=== PATIENT | female | born 1950 | race Hispanic/Latino ===

== ENCOUNTER 2016-07-18 11:17 | Inpatient (IN) | payer OTHER ==
[2016-07-18] MEDS ORDERED: ZOFRAN ONE (11:59)
--- NOTE | 2016-07-18 12:38 | Emergency Department Report ---
ED General Adult HPI - General Chief complaint: Dizziness Stated complaint: DIZZY Time Seen by Provider: 07/18/16 12:21 Source: patient, EMS (ems notes not available at time of chart dictation), RN notes reviewed Mode of arrival: Stretcher Limitations: No Limitations, Physical Limitation - History of Present Illness Initial comments: This is a 66-year-old female. She is previously unknown to me. Her primary care doctor is Dr. Elizondo past medical history includes hypertension, thyroid disease, peripheral edema. Patient presents to the ER with atraumatic left lower extremity pain and swelling. Patient also complains of chest pain last week which since resolved, and episode of syncope today. She also complains of dizziness. Dizziness is described as a sensation of room spinning. It is constant. Patient reports that she did not fall or hit her head, she reports that somebody caught her. There is no focal extremity weakness. There is no focal extremity numbness. Positive mild cough, mild shortness of breath, mild wheezing. Symptoms have been constant. Worse with physical exertion, they decrease with rest. -: Gradual Location: chest, left, lower extremity Severity scale (0 -10): 0 Quality: aching Consistency: intermittent Improves with: rest Worsens with: movement Associated Symptoms: chest pain, cough, loss of appetite, shortness of breath, syncope, weakness - Related Data Home Medications Medication Instructions Recorded Confirmed Last Taken Unobtainable 07/18/16 07/18/16 Unknown Allergies Allergy/AdvReac Type Severity Reaction Status Date / Time No Known Allergies Allergy Verified 07/18/16 13:05 ED Review of Systems ROS: Stated complaint: DIZZY Other details as noted in HPI Constitutional: malaise, weakness Eyes: denies: vision change ENT: denies: epistaxis Respiratory: shortness of breath, wheezing Cardiovascular: chest pain, syncope Gastrointestinal: denies: abdominal pain Genitourinary: as per HPI, dysuria Skin: denies: lesions Neurological: weakness Psychiatric: anxiety ED Past Medical Hx - Past Medical History Hx Hypertension: Yes Hx Congestive Heart Failure: Yes Hx COPD: Yes - Surgical History Past Surgical History?: No - Social History Smoking Status: Former Smoker Substance Use Type: None - Medications Home Medications: Home Medications Medication Instructions Recorded Confirmed Last Taken Type Unobtainable 07/18/16 07/18/16 Unknown History ED Physical Exam - General Limitations: Physical Limitation General appearance: alert, in distress - Eye Eye exam: Present: normal appearance, PERRL, EOMI. Absent: nystagmus - ENT ENT exam: Present: normal exam, normal orophraynx, normal external ear exam - Neck Neck exam: Present: normal inspection, full ROM. Absent: tenderness, meningismus - Respiratory Respiratory exam: Present: wheezes, rhonchi - Cardiovascular Cardiovascular Exam: Present: regular rate, normal rhythm, normal heart sounds. Absent: bradycardia, tachycardia, irregular rhythm, systolic murmur, diastolic murmur, rubs, gallop - GI/Abdominal GI/Abdominal exam: Present: soft, normal bowel sounds. Absent: distended, tenderness, guarding, rebound, rigid, pulsatile mass - Extremities Exam Extremities exam: Present: full ROM, tenderness, normal capillary refill, pedal edema, calf tenderness - Back Exam Back exam: Present: normal inspection, full ROM. Absent: tenderness, CVA tenderness (R), CVA tenderness (L), muscle spasm, paraspinal tenderness, vertebral tenderness - Neurological Exam Neurological exam: Present: alert, oriented X3, other (Extraocular movements intact. Tongue midline. No facial droop. Facial sensation intact to light touch in the V1, V2, V3 distribution bilaterally. 5 and 5 strength in 4 extremities.. Sensation is intact to light touch in 4 extremities.). Absent: motor sensory deficit - Psychiatric Psychiatric exam: Present: anxious ED Course Vital Signs 07/18/16 07/18/16 07/18/16 11:43 11:45 16:33 Temperature 98 F Pulse Rate 67 67 Respiratory 16 18 16 Rate Blood Pressure 156/82 139/89 [Left] O2 Sat by Pulse 95 95 97 Oximetry - Reevaluation(s) Reevaluation #1: 07/18/16 15:00 Differential diagnosis: DVT, pulmonary embolus, acute coronary syndrome, COPD exacerbation, pneumonia, peripheral vertigo, subacute stroke Assessment and plan: 66-year-old female with left lower extremity pain and swelling, chest pain, syncope, peripheral vertigo. Has a GCS of 15, NIH score is 0. No obvious cranial nerve deficits. Vertigo and symptoms have been present for greater than 4.5 hours, therefore not a TPA candidate. Left lower extremity DVT study was negative, CT of the chest was negative. Patient was wheezing, was given albuterol, Atrovent, steroids by EMS. Patient will be admitted to the hospital for syncope, chest pain, shortness of breath. case is discussed with the Hospital physician, Dr. Villarreal, who accepts the patient to his service. CT scan of the head is negative 07/18/16 17:18 ED Medical Decision Making - Lab Data Result diagrams: 07/18/16 12:50 07/18/16 12:50 Vital Signs 07/18/16 07/18/16 11:43 11:45 Temperature 98 F Pulse Rate 67 Respiratory 16 18 Rate Blood Pressure 156/82 [Left] O2 Sat by Pulse 95 95 Oximetry Lab Results 07/18/16 07/18/16 07/18/16 Range/Units 12:50 12:50 12:50 WBC 7.7 (4.5-11.0) K/mm3 RBC 5.32 H (3.65-5.03) M/mm3 Hgb 15.2 H (10.1-14.3) gm/dl Hct 45.7 H (30.3-42.9) % MCV 86 (79-97) fl MCH 29 (28-32) pg MCHC 33 (30-34) % RDW 13.9 (13.2-15.2) % Plt Count 169 (140-440) K/mm3 Add Manual Diff Complete Total Counted 100 Seg Neutrophils % Industrial Engineering Director Seg Neuts % (Manual) 87.0 H (40.0-70.0) % Band Neutrophils % 8.0 % Lymphocytes % (Manual) 3.0 L (13.4-35.0) % Reactive Lymphs % (Man) 0 % Monocytes % (Manual) 1.0 (0.0-7.3) % Eosinophils % (Manual) 1.0 (0.0-4.3) % Basophils % (Manual) 0 (0.0-1.8) % Metamyelocytes % 0 % Myelocytes % 0 % Promyelocytes % 0 % Blast Cells % 0 % Nucleated RBC % Not Reportable Seg Neutrophils # Man 6.7 (1.8-7.7) K/mm3 Band Neutrophils # 0.6 K/mm3 Lymphocytes # (Manual) 0.2 L (1.2-5.4) K/mm3 Abs React Lymphs (Man) 0.0 K/mm3 Monocytes # (Manual) 0.1 (0.0-0.8) K/mm3 Eosinophils # (Manual) 0.1 (0.0-0.4) K/mm3 Basophils # (Manual) 0.0 (0.0-0.1) K/mm3 Metamyelocytes # 0.0 K/mm3 Myelocytes # 0.0 K/mm3 Promyelocytes # 0.0 K/mm3 Blast Cells # 0.0 K/mm3 WBC Morphology Not Reportable Hypersegmented Neuts Not Reportable Hyposegmented Neuts Not Reportable Hypogranular Neuts Not Reportable Smudge Cells Not Reportable Toxic Granulation Not Reportable Toxic Vacuolation Not Reportable Dohle Bodies Not Reportable Pelger-Huet Anomaly Not Reportable Ulises Rods Not Reportable Platelet Estimate Appears decreased Clumped Platelets Not Reportable Plt Clumps, EDTA Not Reportable Large Platelets Not Reportable Giant Platelets Not Reportable Platelet Satelliting Not Reportable Plt Morphology Comment Not Reportable RBC Morphology Normal Dimorphic RBCs Not Reportable Polychromasia Not Reportable Hypochromasia Not Reportable Poikilocytosis Not Reportable Anisocytosis Not Reportable Microcytosis Not Reportable Macrocytosis Not Reportable Spherocytes Not Reportable Pappenheimer Bodies Not Reportable Sickle Cells Not Reportable Target Cells Not Reportable Tear Drop Cells Not Reportable Ovalocytes Not Reportable Helmet Cells Not Reportable [place] Bodies Not Reportable [place] Rings Not Reportable Thor Cells Not Reportable Bite Cells Not Reportable Crenated Cell Not Reportable Elliptocytes Not Reportable Acanthocytes (Spur) Not Reportable Rouleaux Not Reportable Hemoglobin C Crystals Not Reportable Schistocytes Not Reportable Malaria parasites Not Reportable Jeff Bodies Not Reportable Hem Pathologist Commnt No PT 12.5 (12.2-14.9) Sec. INR 0.94 (0.87-1.13) D-Dimer 282.05 H (0-234) ng/mlDDU Sodium 138 (137-145) mmol/L Potassium 4.0 (3.6-5.0) mmol/L Chloride 97.1 L (98-107) mmol/L Carbon Dioxide 27 (22-30) mmol/L Anion Gap 18 mmol/L BUN 12 (7-17) mg/dL Creatinine 0.9 (0.7-1.2) mg/dL Estimated GFR > 60 ml/min BUN/Creatinine Ratio 13.33 % Glucose 147 H (65-100) mg/dL Calcium 8.9 (8.4-10.2) mg/dL Magnesium 3.0 H (1.7-2.3) mg/dL Total Bilirubin 0.6 (0.1-1.2) mg/dL AST 16 (5-40) units/L ALT 18 (7-56) units/L Alkaline Phosphatase 151 H (35-129) units/L Troponin T < 0.010 (0.00-0.029) ng/mL NT-Pro-B Natriuret Pep (0-900) pg/mL Total Protein 7.5 (6.3-8.2) g/dL Albumin 4.4 (3.9-5) g/dL Albumin/Globulin Ratio 1.4 % TSH (0.270-4.200) mlU/mL Urine Color (Yellow) Urine Turbidity (Clear) Urine pH (5.0-7.0) Ur Specific [place] (1.003-1.030) Urine Protein (Negative) mg/dL Urine Glucose (UA) (Negative) mg/dL Urine Ketones (Negative) mg/dL Urine Blood (Negative) Urine Nitrite (Negative) Urine Bilirubin (Negative) Urine Urobilinogen (<2.0) mg/dL Ur Leukocyte Esterase (Negative) Urine WBC (Auto) (0.0-6.0) /HPF Urine RBC (Auto) (0.0-6.0) /HPF U Epithel Cells (Auto) (0-13.0) /HPF Urine Bacteria (Auto) (Negative) /HPF 07/18/16 07/18/16 07/18/16 Range/Units 12:50 12:50 13:11 WBC (4.5-11.0) K/mm3 RBC (3.65-5.03) M/mm3 Hgb (10.1-14.3) gm/dl Hct (30.3-42.9) % MCV (79-97) fl MCH (28-32) pg MCHC (30-34) % RDW (13.2-15.2) % Plt Count (140-440) K/mm3 Add Manual Diff Total Counted Seg Neutrophils % Seg Neuts % (Manual) (40.0-70.0) % Band Neutrophils % % Lymphocytes % (Manual) (13.4-35.0) % Reactive Lymphs % (Man) % Monocytes % (Manual) (0.0-7.3) % Eosinophils % (Manual) (0.0-4.3) % Basophils % (Manual) (0.0-1.8) % Metamyelocytes % % Myelocytes % % Promyelocytes % % Blast Cells % % Nucleated RBC % Seg Neutrophils # Man (1.8-7.7) K/mm3 Band Neutrophils # K/mm3 Lymphocytes # (Manual) (1.2-5.4) K/mm3 Abs React Lymphs (Man) K/mm3 Monocytes # (Manual) (0.0-0.8) K/mm3 Eosinophils # (Manual) (0.0-0.4) K/mm3 Basophils # (Manual) (0.0-0.1) K/mm3 Metamyelocytes # K/mm3 Myelocytes # K/mm3 Promyelocytes # K/mm3 Blast Cells # K/mm3 WBC Morphology Hypersegmented Neuts Hyposegmented Neuts Hypogranular Neuts Smudge Cells Toxic Granulation Toxic Vacuolation Dohle Bodies Pelger-Huet Anomaly Ulises Rods Platelet Estimate Clumped Platelets Plt Clumps, EDTA Large Platelets Giant Platelets Platelet Satelliting Plt Morphology Comment RBC Morphology Dimorphic RBCs Polychromasia Hypochromasia Poikilocytosis Anisocytosis Microcytosis Macrocytosis Spherocytes Pappenheimer Bodies Sickle Cells Target Cells Tear Drop Cells Ovalocytes Helmet Cells [place] Bodies [place] Rings [place] Cells Bite Cells Crenated Cell Elliptocytes Acanthocytes (Spur) Rouleaux Hemoglobin C Crystals Schistocytes Malaria parasites Jeff Bodies Hem Pathologist Commnt PT (12.2-14.9) Sec. INR (0.87-1.13) D-Dimer (0-234) ng/mlDDU Sodium (137-145) mmol/L Potassium (3.6-5.0) mmol/L Chloride (98-107) mmol/L Carbon Dioxide (22-30) mmol/L Anion Gap mmol/L BUN (7-17) mg/dL Creatinine (0.7-1.2) mg/dL Estimated GFR ml/min BUN/Creatinine Ratio % Glucose (65-100) mg/dL Calcium (8.4-10.2) mg/dL Magnesium (1.7-2.3) mg/dL Total Bilirubin (0.1-1.2) mg/dL AST (5-40) units/L ALT (7-56) units/L Alkaline Phosphatase (35-129) units/L Troponin T (0.00-0.029) ng/mL NT-Pro-B Natriuret Pep 422.9 (0-900) pg/mL Total Protein (6.3-8.2) g/dL Albumin (3.9-5) g/dL Albumin/Globulin Ratio % TSH 2.310 (0.270-4.200) mlU/mL Urine Color Straw (Yellow) Urine Turbidity Clear (Clear) Urine pH 7.0 (5.0-7.0) Ur Specific [place] 1.006 (1.003-1.030) Urine Protein <15 mg/dl (Negative) mg/dL Urine Glucose (UA) Neg (Negative) mg/dL Urine Ketones Neg (Negative) mg/dL Urine Blood Neg (Negative) Urine Nitrite Neg (Negative) Urine Bilirubin Neg (Negative) Urine Urobilinogen < 2.0 (<2.0) mg/dL Ur Leukocyte Esterase Neg (Negative) Urine WBC (Auto) < 1.0 (0.0-6.0) /HPF Urine RBC (Auto) 1.0 (0.0-6.0) /HPF U Epithel Cells (Auto) < 1.0 (0-13.0) /HPF Urine Bacteria (Auto) 1+ (Negative) /HPF - EKG Data When compared to previous EKG there are: previous EKG unavailable 07/18/16 15:01 normal sinus, 79 bpm, left axis deviation, premature ventricular contractions, low voltage, abnormal EKG, not morphologically consistent with STEMI. - Radiology Data Radiology results: report reviewed, image [facility] 1950 MedRec# [id number] 07/18/16 13:38 - Radiology Dept. Note by [facility] Num: [id number] : 1950 Patient Age: 66 VASCULAR LAB.PRELIMINARY REPORT.BLE VENOUS DUPLEX DONE.NO EVIDENCE OF DVT/SVT IN VESSELS VISUALIZED. Initialized on 07/18/16 13:38 - END OF NOTE CT angiogram of the chest negative for acute disease. Chest x-ray negative, chronic findings noted. Critical care attestation.: If time is entered above; I have spent that time in minutes in the direct care of this critically ill patient, excluding procedure time. ED Disposition Clinical Impression: Syncope, Chest pain, Dizziness Disposition: OP ADMITTED IP TO THIS HOSP Is pt being admited?: Yes Condition: Good
[2016-07-18 13:07] LABS: Hematocrit 45.7 % (30.3-42.9); Hemoglobin 15.2 gm/dl (10.1-14.3); Mean Corpuscular HGB Conc 33 % (30-34); Mean Corpuscular Hemoglobin 29 pg (28-32); Mean Corpuscular Volume 86 fl (79-97); Platelet Count 169 K/mm3 (140-440); Red Blood Count 5.32 M/mm3 (3.65-5.03); Red Cell Distribution Width 13.9 % (13.2-15.2); White Blood Count 7.7 K/mm3 (4.5-11.0)
[2016-07-18 13:17] LABS: INR 0.94 (0.87-1.13)
[2016-07-18 13:24] LABS: BUN/Creatinine Ratio 13.33; Blood Urea Nitrogen 12 mg/dL (7-17); Calcium 8.9 mg/dL (8.4-10.2); Carbon Dioxide 27 mmol/L (22-30); Glucose 147 mg/dL (65-100)
[2016-07-18 13:25] LABS: Alanine Aminotransferase 18 units/L (7-56); Albumin 4.4 g/dL (3.9-5); Albumin/Globulin Ratio 1.4 %; Alkaline Phosphatase 151 units/L (35-129); Anion Gap 18 mmol/L; Bilirubin,Total 0.6 mg/dL (0.1-1.2); Chloride 97.1 mmol/L (98-107); Sodium 138 mmol/L (137-145); Total Protein 7.5 g/dL (6.3-8.2)
[2016-07-18 13:25] LABS: Bacteria,Urine 1+ /HPF (Negative); Bilirubin,Urine NEG (Negative); Blood,Urine NEG (Negative); Ketones,Urine NEG (Negative); Leukocyte Esterase,Urine NEG (Negative); Nitrite,Urine NEG (Negative); Protein,Urine <15 mg/dL mg/dL (Negative); Urobilinogen,Urine < 2.0 mg/dL (<2.0); WBC,Urine < 1.0 /HPF (0.0-6.0)
[2016-07-18 13:38] LABS: Basophils % (Manual) 0 % (0.0-1.8); Blastocytes % (Manual) 0 %
[2016-07-18 13:39] LABS: Diff Status Complete; Platelet Estimate Appears Decreased; RBC Morphology Normal
[2016-07-18] MEDS ORDERED: NACL ONE (13:57)
--- NOTE | 2016-07-18 14:39 | Cat Scan Report ---
CT angiography of the chest with 3-D reconstructed images. Findings: There is no evidence of pulmonary emboli. The lungs are clear. Mild to moderate emphysematous changes are noted especially in the upper lobes. An isolated bleb is seen in the right upper lobe measuring 1.9 cm in diameter. There is no pleural fluid. The mediastinum and hilar structures are normal. Impression: No evidence of pulmonary emboli. COPD is present.
--- NOTE | 2016-07-18 14:42 | XRay Report ---
AP CHEST: HISTORY: Syncope AP view of the chest demonstrates a normal mediastinal and cardiac contour with clear lungs and normal bony and soft tissue structures. IMPRESSION: Unremarkable AP chest.
[2016-07-18] MEDS ORDERED: ANTIVERT PO ONE (15:02)
--- NOTE | 2016-07-18 15:09 | Cat Scan Report ---
CT HEAD WITHOUT CONTRAST: HISTORY: Syncope. Serial contiguous axial images were obtained through the cranium. Intravenous contrast material was not administered. The ventricles are normal in size and appearance. There is no mass effect or midline shift. No areas of abnormally increased or decreased attenuation are seen. Minimal nonspecific chronic white matter changes are noted in both frontal lobes. No mass lesion is seen. The mastoid air cells and visualized portions of the sinuses are normal. IMPRESSION: Cranial CT scan within normal limits.
--- NOTE | 2016-07-18 15:12 | Admit Criteria Form ---
Admission Criteria Documentation: CHEST PAIN Clinical Indications for Admission to Inpatient Care (Place 'X' for any and all applicable criteria): Admission is indicated for chest pain and ANY ONE of the following(1)(2)(3)(4)(5 ): [ ]I. Angina with acute coronary syndrome (Also use Myocardial Infarction or Angina guideline) [ ]II. Hemodynamic instability [ ]III. Angina needing acute intervention as indicated by ALL of the following( 11)(12): [ ]a) Unstable angina is present as indicated by angina that is ANY ONE of the following: [ ]i) New onset [ ]ii) Nocturnal [ ]iii) Prolonged at rest [ ]iv) Progressive [ ]b) Angina warrants acute intervention as indicated by ANY ONE of the following: [ ]i) Recurrent angina (e.g, not responding as previously to treatment) [ ]ii) Angina at rest or with low-level activities despite initial medical therapy [ ]iii) New or presumably new ST-segment depression on ECG [ ]iv) Signs or symptoms of heart failure (eg, dyspnea, pulmonary edema) [ ]v) New or worsening mitral regurgitation [ ]vi) Hemodynamic instability [ ]vii) Dangerous arrhythmia (eg, sustained ventricular tachycardia) [ ]viii) History of percutaneous coronary intervention within 6 months [ ]ix) History of coronary artery bypass graft surgery [ ]x) MADISYN risk score of 2 or greater[A] [ ]xi) History of Diabetes(14) [ ]xii) High-risk cardiac ischemia findings on noninvasive testing (e.g, echocardiogram, treadmill testing, nuclear scan) [ ]xiii) Chronic renal insufficiency (ie, estimated GFR less than 60 mL/min/1.732m) [ ]xiv) Left ventricular ejection fraction less than 40% [ ]IV. Evidence of ME (eg, cardiac biomarkers positive, ST-segment elevation on ECG) also use Myocardial Infarction Criteria Form. [ ]V. Pulmonary edema [ ]. Respiratory distress [ ]VII. Chest pain indicative of serious diagnosis other than coronary artery disease (eg, aortic dissection) [ ]VIII. Contraindications and/or Inappropriate clinical situations for Observational Care in patients with Chest Pain, when ANY ONE of the following is required: [ ]a) Patient with risk factor for pulmonary embolism, acute coronary syndrome and myocardial infarction (18) [ ]b) Patient with Pulmonary embolism require an average LOS of 4.3 days, therefore emergency department observation management is inappropriate 18,23 [ ]c) Painful condition/s in the elderly, have the highest rate of recidivism after emergency department observation management (10.8%) 20,21,22 [ ]d) Elevated cardiac biomarker requires intensive and exhaustive care (19) [X ]IX. General contraindications and/or Inappropriate clinical situations for Observational Care in patients with Chest Pain, when ANY ONE of the following is required: [X ]a) Prediction of prolongation of LOS based on ANY ONE of the following may be considered as a contraindication for observational care 2, 3, 4, 5, 6, 7, 8, 9, 10, 11 [ ]i) Age > 65 yrs. [X ]ii) Patient arriving by ambulance [ ]iii) Patient with high acuity [ ]iv) Patient requiring vital sign monitoring [ ]v) Patient on IV medication [ ]b) Systolic blood pressures 180mmHg 3,12 [ ]c) Patient with altered mental status including delirium and other alteration of consciousness, (3) [ ]d) Patient whose discharge disposition will be to a usp home or rehabilitation home should not be managed in Emergency Department Observation Unit. CMS rule requires 3 days hospital stay before such placement. 3,13 [ ]e) Patient with failure to thrive due to broad array of etiologies 3,16,17 [ ]f) Inability to ambulate 3,14 Extended stay beyond goal length of stay may be needed for (1)(28): [ ]a) Specific condition diagnosed after evaluation (eg, pulmonary embolism, aortic dissection) [ ]b) Unstable angina [ ]c) Continued suspicion of acute coronary syndrome with inability to complete needed cardiac evaluation (eg, patient clinically unable to undergo stress testing) [ ]d) Myocardial infarction (Contents from ANGINA and CHEST PAIN clinical indications for admission to inpatient care have been integrated in this form) The original [facility] content created by [employer] has been revised. The portions of the content which have been revised are identified through the use of italic text or in bold, and [facility] [employer] has neither reviewed nor approved the modified material. All other unmodified content is copyright [facility]. Please see references footnoted in the original [facility] [employer] edition 2016 Admission Criteria Met: Yes
[2016-07-18] MEDS ORDERED: BABY ASPIRIN PO ONE (15:23)
[2016-07-18] MEDS ORDERED: BABY ASPIRIN ONE ×2 (17:00→17:34)
[2016-07-18] MEDS ORDERED: SODIUM CHLORIDE FLUSH SYRINGE 10 ML IV PRN (17:51)
[2016-07-18] MEDS ORDERED: MORPHINE IV PRN (17:51)
--- NOTE | 2016-07-18 17:51 | History and Physical Report ---
History of Present Illness Date of examination: 07/18/16 Date of admission: 07/18/16 15:02 Chief complaint: Syncope History of present illness: This is a 66 y/o female with h/o COPD, HTN presented with an episode of syncope this morning. She also c/o diarrhea for last couple days. patient states that she has been feeling lightheaded for last couple weeks when she gets up from sitting and walks aaround, symptom was off and on. today ada were having furniture delivery to their house and she was standing near the door when she felt lightheaded, passed out, slided along the wall and fell on the floor. She denies any head injury. She states that lasy couple days she was having loose stool, without ant rectal bleeding. She c/o nausea but no vomiting. She also reported in the ER that she had left leg pain and swelling. CT head in the ER was unremarkable. She also also evaluated by doppler US of the LLE and CT with PE protocol was normal. She is getting admitted for further evaluation of syncope. Past medical History: h/o COPD, HTN Past surgical History: None Social History: Lives with family, denies any smoking, drinking and elicit drug abuse. Quit smoking on 2011. Family History: Significant for HD in parents, and breast cancer in mother. Review of System: Constitutional: no fever, no chills, no weight loss, + lightheadedness Ears, eyes, nose, mouth and throat: no nasal congestion, no nasal discharge, no sinus pressure, no vision change, no red eye. + left earache Neck: No neck pain or rigidity. Cardiovascular: No chest pain, no orthopnea, no palpitations, no leg swelling Respiratory: No shortness of breath, no cough, no congestion, no wheezing Gastrointestinal: no abdominal pain, + nausea, no vomiting, + diarrhea Genitourinary : no dysuria, no hematuria Musculoskeletal: no joint swelling or muscle ache Integumentary: no rash, no pruritis Neurological: no parathesias, no numbness, no tingling Endocrine: no cold or heat intolerance, no polyuria or polydipsia Hematologic/Lymphatic: no easy bruising, no easy bleeding, no gland swelling Allergic/Immunologic: no urticaria, no angioedema. Medications and Allergies Allergies Allergy/AdvReac Type Severity Reaction Status Date / Time No Known Allergies Allergy Verified 07/18/16 13:05 Home Medications Medication Instructions Recorded Confirmed Last Taken Type ALBUTEROL Inhaler [ProAir HFA 2 puff IH QID PRN 07/18/16 07/18/16 07/18/16 History Inhaler] Atenolol [Tenormin] 100 mg PO DAILY 07/18/16 07/18/16 07/18/16 History Furosemide [Lasix TAB] 40 mg PO QDAY 07/18/16 07/18/16 07/18/16 History Lisinopril [Zestril TAB] 40 mg PO QDAY 07/18/16 07/18/16 07/18/16 History Omeprazole 20 mg PO DAILY 07/18/16 07/18/16 07/18/16 History Potassium Chloride [K-Dur] 10 meq PO QDAY 07/18/16 07/18/16 07/18/16 History Umeclidinium Brm/Vilanterol Tr 1 puff PO DAILY 07/18/16 07/18/16 07/18/16 History [Anoro Ellipta 62.5-25 Mcg INH] amLODIPine [Norvasc] 10 mg PO DAILY 07/18/16 07/18/16 07/18/16 History Exam - Physical Exam Narrative exam: GENERAL: This is well-developed obese WF lying on bed appeared to be in no discomfort. HEENT: Normocephalic. Atraumatic. Extraocular motions are intact. No conjunctival congestion or icterus. Patient has moist mucous membranes. External auditory canal and nares patent bilaterally. NECK: Supple. Trachea midline. No JVD, thyromagaly or lymphadenopathy. CHEST/LUNGS: Clear to auscultated bilaterally. There is no respiratory distress noted, breathing nonlabored. No wheezes crackles or rhonchi. HEART/CARDIOVASCULAR: Regular in rate and rhythm. PMI at the apex. There is no gallop rub or murmur. ABDOMEN: Abdomen is soft, nontender. Patient has normal bowel sounds. There is no abdominal distention. No organomagaly or rigidity. SKIN: There is no rash, no erythrema. There is no diaphoresis. Warm and dry. NEUROLOGY: The patient is awake, alert, and oriented. The patient is cooperative. The patient has normal speech. No focal motor deficit. MUSCULOSKELETAL: No joint effusion or tenderness. Muscle strength equal bilaterally. No muscle wasting. EXTRIMITY: No edema, cyanosis or clubbing. PSYCH: No depression or anxiety noted. Cooperative. - Constitutional Vitals: Temp Pulse Resp BP Pulse Ox 98 F 67 16 139/89 97 07/18/16 11:43 07/18/16 16:33 07/18/16 16:33 07/18/16 16:33 07/18/16 16:33 Results - Labs CBC & Chem 7: 07/18/16 12:50 07/18/16 12:50 Labs: Laboratory Last Values WBC 7.7 K/mm3 (4.5-11.0) 07/18/16 12:50 RBC 5.32 M/mm3 (3.65-5.03) H 07/18/16 12:50 Hgb 15.2 gm/dl (10.1-14.3) H 07/18/16 12:50 Hct 45.7 % (30.3-42.9) H 07/18/16 12:50 MCV 86 fl (79-97) 07/18/16 12:50 MCH 29 pg (28-32) 07/18/16 12:50 MCHC 33 % (30-34) 07/18/16 12:50 RDW 13.9 % (13.2-15.2) 07/18/16 12:50 Plt Count 169 K/mm3 (140-440) 07/18/16 12:50 Add Manual Diff Complete 07/18/16 12:50 Total Counted 100 07/18/16 12:50 Seg Neutrophils % Log Carrier Operator 07/18/16 12:50 Seg Neuts % (Manual) 87.0 % (40.0-70.0) H 07/18/16 12:50 Band Neutrophils % 8.0 % 07/18/16 12:50 Lymphocytes % (Manual) 3.0 % (13.4-35.0) L 07/18/16 12:50 Reactive Lymphs % (Man) 0 % 07/18/16 12:50 Monocytes % (Manual) 1.0 % (0.0-7.3) 07/18/16 12:50 Eosinophils % (Manual) 1.0 % (0.0-4.3) 07/18/16 12:50 Basophils % (Manual) 0 % (0.0-1.8) 07/18/16 12:50 Metamyelocytes % 0 % 07/18/16 12:50 Myelocytes % 0 % 07/18/16 12:50 Promyelocytes % 0 % 07/18/16 12:50 Blast Cells % 0 % 07/18/16 12:50 Nucleated RBC % Not Reportable 07/18/16 12:50 Seg Neutrophils # Man 6.7 K/mm3 (1.8-7.7) 07/18/16 12:50 Band Neutrophils # 0.6 K/mm3 07/18/16 12:50 Lymphocytes # (Manual) 0.2 K/mm3 (1.2-5.4) L 07/18/16 12:50 Abs React Lymphs (Man) 0.0 K/mm3 07/18/16 12:50 Monocytes # (Manual) 0.1 K/mm3 (0.0-0.8) 07/18/16 12:50 Eosinophils # (Manual) 0.1 K/mm3 (0.0-0.4) 07/18/16 12:50 Basophils # (Manual) 0.0 K/mm3 (0.0-0.1) 07/18/16 12:50 Metamyelocytes # 0.0 K/mm3 07/18/16 12:50 Myelocytes # 0.0 K/mm3 07/18/16 12:50 Promyelocytes # 0.0 K/mm3 07/18/16 12:50 Blast Cells # 0.0 K/mm3 07/18/16 12:50 WBC Morphology Not Reportable 07/18/16 12:50 Hypersegmented Neuts Not Reportable 07/18/16 12:50 Hyposegmented Neuts Not Reportable 07/18/16 12:50 Hypogranular Neuts Not Reportable 07/18/16 12:50 Smudge Cells Not Reportable 07/18/16 12:50 Toxic Granulation Not Reportable 07/18/16 12:50 Toxic Vacuolation Not Reportable 07/18/16 12:50 Dohle Bodies Not Reportable 07/18/16 12:50 Pelger-Huet Anomaly Not Reportable 07/18/16 12:50 Ulises Rods Not Reportable 07/18/16 12:50 Platelet Estimate Appears decreased 07/18/16 12:50 Clumped Platelets Not Reportable 07/18/16 12:50 Plt Clumps, EDTA Not Reportable 07/18/16 12:50 Large Platelets Not Reportable 07/18/16 12:50 Giant Platelets Not Reportable 07/18/16 12:50 Platelet Satelliting Not Reportable 07/18/16 12:50 Plt Morphology Comment Not Reportable 07/18/16 12:50 RBC Morphology Normal 07/18/16 12:50 Dimorphic RBCs Not Reportable 07/18/16 12:50 Polychromasia Not Reportable 07/18/16 12:50 Hypochromasia Not Reportable 07/18/16 12:50 Poikilocytosis Not Reportable 07/18/16 12:50 Anisocytosis Not Reportable 07/18/16 12:50 Microcytosis Not Reportable 07/18/16 12:50 Macrocytosis Not Reportable 07/18/16 12:50 Spherocytes Not Reportable 07/18/16 12:50 Pappenheimer Bodies Not Reportable 07/18/16 12:50 Sickle Cells Not Reportable 07/18/16 12:50 Target Cells Not Reportable 07/18/16 12:50 Tear Drop Cells Not Reportable 07/18/16 12:50 Ovalocytes Not Reportable 07/18/16 12:50 Helmet Cells Not Reportable 07/18/16 12:50 Gavin-[place] Bodies Not Reportable 07/18/16 12:50 [place] Rings Not Reportable 07/18/16 12:50 [place] Cells Not Reportable 07/18/16 12:50 Bite Cells Not Reportable 07/18/16 12:50 Crenated Cell Not Reportable 07/18/16 12:50 Elliptocytes Not Reportable 07/18/16 12:50 Acanthocytes (Spur) Not Reportable 07/18/16 12:50 Rouleaux Not Reportable 07/18/16 12:50 Hemoglobin C Crystals Not Reportable 07/18/16 12:50 Schistocytes Not Reportable 07/18/16 12:50 Malaria parasites Not Reportable 07/18/16 12:50 Jeff Bodies Not Reportable 07/18/16 12:50 Hem Pathologist Commnt No 07/18/16 12:50 PT 12.5 Sec. (12.2-14.9) 07/18/16 12:50 INR 0.94 (0.87-1.13) 07/18/16 12:50 D-Dimer 282.05 ng/mlDDU (0-234) H 07/18/16 12:50 Sodium 138 mmol/L (137-145) 07/18/16 12:50 Potassium 4.0 mmol/L (3.6-5.0) 07/18/16 12:50 Chloride 97.1 mmol/L (98-107) L 07/18/16 12:50 Carbon Dioxide 27 mmol/L (22-30) 07/18/16 12:50 Anion Gap 18 mmol/L 07/18/16 12:50 BUN 12 mg/dL (7-17) 07/18/16 12:50 Creatinine 0.9 mg/dL (0.7-1.2) 07/18/16 12:50 Estimated GFR > 60 ml/min 07/18/16 12:50 BUN/Creatinine Ratio 13.33 % 07/18/16 12:50 Glucose 147 mg/dL (65-100) H 07/18/16 12:50 Calcium 8.9 mg/dL (8.4-10.2) 07/18/16 12:50 Magnesium 3.0 mg/dL (1.7-2.3) H 07/18/16 12:50 Total Bilirubin 0.6 mg/dL (0.1-1.2) 07/18/16 12:50 AST 16 units/L (5-40) 07/18/16 12:50 ALT 18 units/L (7-56) 07/18/16 12:50 Alkaline Phosphatase 151 units/L (35-129) H 07/18/16 12:50 Troponin T < 0.010 ng/mL (0.00-0.029) 07/18/16 12:50 NT-Pro-B Natriuret Pep 422.9 pg/mL (0-900) 07/18/16 12:50 Total Protein 7.5 g/dL (6.3-8.2) 07/18/16 12:50 Albumin 4.4 g/dL (3.9-5) 07/18/16 12:50 Albumin/Globulin Ratio 1.4 % 07/18/16 12:50 TSH 2.310 mlU/mL (0.270-4.200) 07/18/16 12:50 Urine Color Straw (Yellow) 07/18/16 13:11 Urine Turbidity Clear (Clear) 07/18/16 13:11 Urine pH 7.0 (5.0-7.0) 07/18/16 13:11 Ur Specific [place] 1.006 (1.003-1.030) 07/18/16 13:11 Urine Protein <15 mg/dl mg/dL (Negative) 07/18/16 13:11 Urine Glucose (UA) Neg mg/dL (Negative) 07/18/16 13:11 Urine Ketones Neg mg/dL (Negative) 07/18/16 13:11 Urine Blood Neg (Negative) 07/18/16 13:11 Urine Nitrite Neg (Negative) 07/18/16 13:11 Urine Bilirubin Neg (Negative) 07/18/16 13:11 Urine Urobilinogen < 2.0 mg/dL (<2.0) 07/18/16 13:11 Ur Leukocyte Esterase Neg (Negative) 07/18/16 13:11 Urine WBC (Auto) < 1.0 /HPF (0.0-6.0) 07/18/16 13:11 Urine RBC (Auto) 1.0 /HPF (0.0-6.0) 07/18/16 13:11 U Epithel Cells (Auto) < 1.0 /HPF (0-13.0) 07/18/16 13:11 Urine Bacteria (Auto) 1+ /HPF (Negative) 07/18/16 13:11 - Imaging and Cardiology CT scan - chest: report reviewed (negative for PE) CT Scan - head: report reviewed (no acute intracranial process) Venous US: report reviewed (lower extremity venous Doppler was negative for DVT) Assessment and Plan Assessment and plan: Syncope, likely vasovagal H/o COPD not in exacerbation HTN, benign essential Obesity due to access calorie Acute diarrhea, likely gastroenteritis Plan: Patient will be admitted to medicine Monitor serial cardiac enzyme and EKG IV fluid, stool study Obtain 2-D echocardiogram and carotid Doppler Cardiology consult Supportive care, hold BP meds, orthostatic vitals Provide GI and dvt prophylaxis Advance Directives: Yes VTE prophylaxis?: Chemical Plan of care discussed with patient/family: Yes
[2016-07-18] MEDS: LOVENOX SUB-Q SCH (21:11)
[2016-07-18] MEDS: PEPCID PO SCH (21:11)
[2016-07-18 21:24] LABS: Creatine Kinase 73 units/L (30-135); Creatine Kinase MB 1.5 ng/mL (0.0-4.0)
[2016-07-18] MEDS: NACL 0.9% 1000 ML 1,000 ML IV SCH (21:53)
[2016-07-19 00:17] LABS: Creatine Kinase MB 1.4 ng/mL (0.0-4.0)
[2016-07-19 00:20] LABS: Creatine Kinase 82 units/L (30-135)
[2016-07-19] MEDS: NACL 0.9% 1000 ML 1,000 ML IV SCH ×2 (10:47→21:35)
[2016-07-19] MEDS: ECOTRIN PO SCH (10:47)
[2016-07-19] MEDS: PEPCID PO SCH ×2 (10:47→21:34)
--- NOTE | 2016-07-19 15:49 | Consultation ---
History of Present Illness Consult date: 07/19/16 Requesting physician: SULLY QUINTANA Consult reason: syncope History of present illness: The patient is a 66 year old female with a history of hypertension, hyperlipidemia, COPD who presented following a syncopal episode at home. She states that recently her blood pressure has been running low and her PCP made some adjustments to her blood pressure medications last week. Since that time, she has experienced intermittent dizziness and lightheadness, especially when moving from a sitting to standing position. Yesterday, she was standing in the kitchen and as she was walking to answer the front door, she felt very lightheaded, leaned back against the wall and slid down to the floor. Her reports that she was out for several minutes. She denies any chest pain , palpitations, shortness of breath, nausea or vomiting. She does report several days of diarrhea earlier this week. Troponin negative x 3. Head CT unremarkable. Chest CTA negative for PE. Carotids negative. No recent ischemic evaluation. Past History Past Medical History: COPD, hypertension, hyperlipidemia Past Surgical History: No surgical history Social history: . denies: smoking, alcohol abuse, prescription drug abuse, IV drug use Family history: CAD Medications and Allergies Allergies Allergy/AdvReac Type Severity Reaction Status Date / Time No Known Allergies Allergy Verified 07/18/16 13:05 Home Medications Medication Instructions Recorded Confirmed Last Taken Type ALBUTEROL Inhaler [ProAir HFA 2 puff IH QID PRN 07/18/16 07/18/16 07/18/16 History Inhaler] Atenolol [Tenormin] 100 mg PO DAILY 07/18/16 07/18/16 07/18/16 History Furosemide [Lasix TAB] 40 mg PO QDAY 07/18/16 07/18/16 07/18/16 History Lisinopril [Zestril TAB] 40 mg PO QDAY 07/18/16 07/18/16 07/18/16 History Omeprazole 20 mg PO DAILY 07/18/16 07/18/16 07/18/16 History Potassium Chloride [K-Dur] 10 meq PO QDAY 07/18/16 07/18/16 07/18/16 History Umeclidinium Brm/Vilanterol Tr 1 puff PO DAILY 07/18/16 07/18/16 07/18/16 History [Anoro Ellipta 62.5-25 Mcg INH] amLODIPine [Norvasc] 10 mg PO DAILY 07/18/16 07/18/16 07/18/16 History Active Meds: Active Medications Aspirin (Ecotrin) 325 mg PO QDAY [facility] Last Admin: 07/19/16 10:47 Dose: 325 mg Enoxaparin Sodium (Lovenox) 40 mg SUB-Q QDAY@2200 [facility] Last Admin: 07/18/16 21:11 Dose: 40 mg Famotidine (Pepcid) 20 mg PO BID [facility] Last Admin: 07/19/16 10:47 Dose: 20 mg Sodium Chloride (Nacl 0.9% 1000 Ml) 1,000 mls @ 100 mls/hr IV DIRECT [facility] Last Admin: 07/19/16 10:47 Dose: 100 mls/hr Morphine Sulfate (Morphine) 2 mg IV Q5MIN PRN PRN Reason: Chest Pain Sodium Chloride (Sodium Chloride Flush Syringe 10 Ml) 10 ml IV PRN PRN PRN Reason: LINE FLUSH Review of Systems Constitutional: fatigue, no fever, no chills Ears, nose, mouth and throat: no nasal congestion, no nasal discharge, no sinus pressure Cardiovascular: syncope, leg edema, no chest pain, no palpitations, no shortness of breath Respiratory: no cough, no shortness of breath, no congestion, no wheezing Gastrointestinal: diarrhea, no abdominal pain, no nausea, no vomiting Genitourinary Female: no dysuria, no urgency Musculoskeletal: no neck stiffness, no neck pain, no myalgias Integumentary: no rash, no pruritis Neurological: syncope, no parathesias, no numbness, no tingling, no headaches Endocrine: no cold intolerance, no heat intolerance Hematologic/Lymphatic: no easy bruising, no easy bleeding Allergic/Immunologic: no urticaria, no wheezing Physical Examination Vital Signs Temp Pulse Resp BP Pulse Ox 98 F 67 16 156/82 95 07/18/16 11:43 07/18/16 11:43 07/18/16 11:43 07/18/16 11:43 07/18/16 11:43 General appearance: no acute distress, obese HEENT: Positive: PERRL, Normocephaly, Mucus Membranes Moist Neck: Positive: neck supple, trachea midline Cardiac: Positive: Reg Rate and Rhythm, S1/S2 Lungs: Positive: clear to auscultation Neuro: Positive: Grossly Intact Abdomen: Positive: Soft, Active Bowel Sounds. Negative: Tender Skin: Positive: Clear. Negative: Rash Extremities: Present: +1 Edema (left lower leg) Results 07/18/16 12:50 07/18/16 12:50 Cardiac Enzymes 07/18/16 Range/Units 20:38 CK-MB (CK-2) 1.5 (0.0-4.0) ng/mL Lipids 07/18/16 Range/Units 19:56 Triglycerides 143 (2-149) mg/dL Cholesterol 224 H (50-199) mg/dL HDL Cholesterol 48 (40-59) mg/dL Cholesterol/HDL Ratio 4.66 % - Imaging and Cardiology Echo: pending EKG: image reviewed EKG interpretations - Telemetry EKG Rhythm: Sinus Rhythm - EKG Sinus rhythms and dysrhythmias: sinus rhythm Assessment and Plan Syncope head CT negative chest CTA negative for PE carotids negative obtain orthostatics await echo findings Lexiscan thallium stress test in am will continue to observe on the monitor Hypertension Hyperlipidemia COPD Obtain orthostatics. Await echo findings. Lexiscan thallium stress test in am. Will continue to observe on the monitor. The patient has been seen in conjunction with Dr. Mcknight who agrees with the assessment and plan of care. Thank you Dr. Quintana for allowing us to participate in the care of this patient.
[2016-07-19] MEDS: LOVENOX SUB-Q SCH (21:34)
--- NOTE | 2016-07-19 22:21 | Progress Note ---
Assessment and Plan Assessment and plan: Syncope, likely vasovagal H/o COPD not in exacerbation HTN, benign essential Obesity due to access calorie Acute diarrhea, likely gastroenteritis Plan: serial cardiac enzyme and EKG normal IV fluid, stool study pending follow 2-D echocardiogram report carotid Doppler showed <50% stenosis b/l Cardiology recommended stress test in the am Supportive care, hold BP meds, orthostatic vitals Provide GI and dvt prophylaxis History Interval history: Pt seen and examined denies any lightheadedness today, no chest pain, diarrhea resolved Hospitalist Physical - Physical exam Narrative exam: GENERAL: This is well-developed obese WF lying on bed appeared to be in no discomfort. HEENT: Normocephalic. No conjunctival congestion or icterus. Patient has moist mucous membranes. External auditory canal and nares patent bilaterally. NECK: Supple. Trachea midline. CHEST/LUNGS: Clear to auscultated bilaterally. breathing nonlabored. HEART/CARDIOVASCULAR: Regular in rate and rhythm. PMI at the apex. . ABDOMEN: Abdomen is soft, nontender. Patient has normal bowel sounds. SKIN: There is no rash, Warm and dry. NEUROLOGY: The patient is awake, alert, and oriented. No focal motor deficit. MUSCULOSKELETAL: No joint effusion or tenderness. EXTRIMITY: No edema, cyanosis or clubbing. PSYCH: No depression or anxiety noted. Cooperative. - Constitutional Vitals: Temp Pulse Resp BP Pulse Ox 98.2 F 69 18 115/59 95 07/19/16 20:41 07/19/16 20:41 07/19/16 20:59 07/19/16 20:41 07/19/16 20:41 General appearance: Present: no acute distress, obese Results - Labs CBC & Chem 7: 07/18/16 12:50 07/18/16 12:50 Labs: Laboratory Last Values WBC 7.7 K/mm3 (4.5-11.0) 07/18/16 12:50 RBC 5.32 M/mm3 (3.65-5.03) H 07/18/16 12:50 Hgb 15.2 gm/dl (10.1-14.3) H 07/18/16 12:50 Hct 45.7 % (30.3-42.9) H 07/18/16 12:50 MCV 86 fl (79-97) 07/18/16 12:50 MCH 29 pg (28-32) 07/18/16 12:50 MCHC 33 % (30-34) 07/18/16 12:50 RDW 13.9 % (13.2-15.2) 07/18/16 12:50 Plt Count 169 K/mm3 (140-440) 07/18/16 12:50 Add Manual Diff Complete 07/18/16 12:50 Total Counted 100 07/18/16 12:50 Seg Neutrophils % Weapons Officer 07/18/16 12:50 Seg Neuts % (Manual) 87.0 % (40.0-70.0) H 07/18/16 12:50 Band Neutrophils % 8.0 % 07/18/16 12:50 Lymphocytes % (Manual) 3.0 % (13.4-35.0) L 07/18/16 12:50 Reactive Lymphs % (Man) 0 % 07/18/16 12:50 Monocytes % (Manual) 1.0 % (0.0-7.3) 07/18/16 12:50 Eosinophils % (Manual) 1.0 % (0.0-4.3) 07/18/16 12:50 Basophils % (Manual) 0 % (0.0-1.8) 07/18/16 12:50 Metamyelocytes % 0 % 07/18/16 12:50 Myelocytes % 0 % 07/18/16 12:50 Promyelocytes % 0 % 07/18/16 12:50 Blast Cells % 0 % 07/18/16 12:50 Nucleated RBC % Not Reportable 07/18/16 12:50 Seg Neutrophils # Man 6.7 K/mm3 (1.8-7.7) 07/18/16 12:50 Band Neutrophils # 0.6 K/mm3 07/18/16 12:50 Lymphocytes # (Manual) 0.2 K/mm3 (1.2-5.4) L 07/18/16 12:50 Abs React Lymphs (Man) 0.0 K/mm3 07/18/16 12:50 Monocytes # (Manual) 0.1 K/mm3 (0.0-0.8) 07/18/16 12:50 Eosinophils # (Manual) 0.1 K/mm3 (0.0-0.4) 07/18/16 12:50 Basophils # (Manual) 0.0 K/mm3 (0.0-0.1) 07/18/16 12:50 Metamyelocytes # 0.0 K/mm3 07/18/16 12:50 Myelocytes # 0.0 K/mm3 07/18/16 12:50 Promyelocytes # 0.0 K/mm3 07/18/16 12:50 Blast Cells # 0.0 K/mm3 07/18/16 12:50 WBC Morphology Not Reportable 07/18/16 12:50 Hypersegmented Neuts Not Reportable 07/18/16 12:50 Hyposegmented Neuts Not Reportable 07/18/16 12:50 Hypogranular Neuts Not Reportable 07/18/16 12:50 Smudge Cells Not Reportable 07/18/16 12:50 Toxic Granulation Not Reportable 07/18/16 12:50 Toxic Vacuolation Not Reportable 07/18/16 12:50 Dohle Bodies Not Reportable 07/18/16 12:50 Pelger-Huet Anomaly Not Reportable 07/18/16 12:50 Ulises Rods Not Reportable 07/18/16 12:50 Platelet Estimate Appears decreased 07/18/16 12:50 Clumped Platelets Not Reportable 07/18/16 12:50 Plt Clumps, EDTA Not Reportable 07/18/16 12:50 Large Platelets Not Reportable 07/18/16 12:50 Giant Platelets Not Reportable 07/18/16 12:50 Platelet Satelliting Not Reportable 07/18/16 12:50 Plt Morphology Comment Not Reportable 07/18/16 12:50 RBC Morphology Normal 07/18/16 12:50 Dimorphic RBCs Not Reportable 07/18/16 12:50 Polychromasia Not Reportable 07/18/16 12:50 Hypochromasia Not Reportable 07/18/16 12:50 Poikilocytosis Not Reportable 07/18/16 12:50 Anisocytosis Not Reportable 07/18/16 12:50 Microcytosis Not Reportable 07/18/16 12:50 Macrocytosis Not Reportable 07/18/16 12:50 Spherocytes Not Reportable 07/18/16 12:50 Pappenheimer Bodies Not Reportable 07/18/16 12:50 Sickle Cells Not Reportable 07/18/16 12:50 Target Cells Not Reportable 07/18/16 12:50 Tear Drop Cells Not Reportable 07/18/16 12:50 Ovalocytes Not Reportable 07/18/16 12:50 Helmet Cells Not Reportable 07/18/16 12:50 Gavin-[place] Bodies Not Reportable 07/18/16 12:50 [place] Rings Not Reportable 07/18/16 12:50 [place] Cells Not Reportable 07/18/16 12:50 Bite Cells Not Reportable 07/18/16 12:50 Crenated Cell Not Reportable 07/18/16 12:50 Elliptocytes Not Reportable 07/18/16 12:50 Acanthocytes (Spur) Not Reportable 07/18/16 12:50 Rouleaux Not Reportable 07/18/16 12:50 Hemoglobin C Crystals Not Reportable 07/18/16 12:50 Schistocytes Not Reportable 07/18/16 12:50 Malaria parasites Not Reportable 07/18/16 12:50 Jeff Bodies Not Reportable 07/18/16 12:50 Hem Pathologist Commnt No 07/18/16 12:50 PT 12.5 Sec. (12.2-14.9) 07/18/16 12:50 INR 0.94 (0.87-1.13) 07/18/16 12:50 D-Dimer 282.05 ng/mlDDU (0-234) H 07/18/16 12:50 Sodium 138 mmol/L (137-145) 07/18/16 12:50 Potassium 4.0 mmol/L (3.6-5.0) 07/18/16 12:50 Chloride 97.1 mmol/L (98-107) L 07/18/16 12:50 Carbon Dioxide 27 mmol/L (22-30) 07/18/16 12:50 Anion Gap 18 mmol/L 07/18/16 12:50 BUN 12 mg/dL (7-17) 07/18/16 12:50 Creatinine 0.9 mg/dL (0.7-1.2) 07/18/16 12:50 Estimated GFR > 60 ml/min 07/18/16 12:50 BUN/Creatinine Ratio 13.33 % 07/18/16 12:50 Glucose 147 mg/dL (65-100) H 07/18/16 12:50 Calcium 8.9 mg/dL (8.4-10.2) 07/18/16 12:50 Magnesium 3.0 mg/dL (1.7-2.3) H 07/18/16 12:50 Total Bilirubin 0.6 mg/dL (0.1-1.2) 07/18/16 12:50 AST 16 units/L (5-40) 07/18/16 12:50 ALT 18 units/L (7-56) 07/18/16 12:50 Alkaline Phosphatase 151 units/L (35-129) H 07/18/16 12:50 Total Creatine Kinase 82 units/L (30-135) 07/18/16 23:33 CK-MB (CK-2) 1.5 ng/mL (0.0-4.0) 07/18/16 20:38 CK-MB (CK-2) Rel Index 1.7 (0-4) 07/18/16 23:33 Troponin T < 0.010 ng/mL (0.00-0.029) 07/18/16 23:33 NT-Pro-B Natriuret Pep 422.9 pg/mL (0-900) 07/18/16 12:50 Total Protein 7.5 g/dL (6.3-8.2) 07/18/16 12:50 Albumin 4.4 g/dL (3.9-5) 07/18/16 12:50 Albumin/Globulin Ratio 1.4 % 07/18/16 12:50 Triglycerides 143 mg/dL (2-149) 07/18/16 19:56 Cholesterol 224 mg/dL (50-199) H 07/18/16 19:56 LDL Cholesterol Direct 148 mg/dL (50-130) H 07/18/16 19:56 HDL Cholesterol 48 mg/dL (40-59) 07/18/16 19:56 Cholesterol/HDL Ratio 4.66 % 07/18/16 19:56 TSH 2.310 mlU/mL (0.270-4.200) 07/18/16 12:50 Urine Color Straw (Yellow) 07/18/16 13:11 Urine Turbidity Clear (Clear) 07/18/16 13:11 Urine pH 7.0 (5.0-7.0) 07/18/16 13:11 Ur Specific [place] 1.006 (1.003-1.030) 07/18/16 13:11 Urine Protein <15 mg/dl mg/dL (Negative) 07/18/16 13:11 Urine Glucose (UA) Neg mg/dL (Negative) 07/18/16 13:11 Urine Ketones Neg mg/dL (Negative) 07/18/16 13:11 Urine Blood Neg (Negative) 07/18/16 13:11 Urine Nitrite Neg (Negative) 07/18/16 13:11 Urine Bilirubin Neg (Negative) 07/18/16 13:11 Urine Urobilinogen < 2.0 mg/dL (<2.0) 07/18/16 13:11 Ur Leukocyte Esterase Neg (Negative) 07/18/16 13:11 Urine WBC (Auto) < 1.0 /HPF (0.0-6.0) 07/18/16 13:11 Urine RBC (Auto) 1.0 /HPF (0.0-6.0) 07/18/16 13:11 U Epithel Cells (Auto) < 1.0 /HPF (0-13.0) 07/18/16 13:11 Urine Bacteria (Auto) 1+ /HPF (Negative) 07/18/16 13:11
[2016-07-20] MEDS ORDERED: LEXISCAN IV ONE ×2 (08:03→08:15)
--- NOTE | 2016-07-20 11:39 | Progress Note ---
Assessment and Plan 66yo WF: Syncope with prodrome: head CT negative chest CTA negative for PE carotids negative tte - nl lv fxn, no sig valvulopathy or pericardial effusion Lexiscan thallium stress test this reveals no ischemia/infarct and nl lv fxn tele unremarkable Hypertension Hyperlipidemia COPD stable cv status f/u with us in office in 2 weeks Subjective Date of service: 07/20/16 Interval history: seen in stress lab feels well Objective Vital Signs Temp Pulse Pulse Resp BP Pulse Ox 07/20/16 08:00 97.6 F 67 20 144/75 95 07/20/16 04:58 97.4 F L 65 20 108/60 96 07/20/16 00:16 98.0 F 72 20 113/60 92 07/20/16 00:00 80 07/19/16 20:59 18 07/19/16 20:41 98.2 F 69 18 115/59 95 07/19/16 16:00 97.9 F 81 20 119/68 92 07/19/16 12:15 86 07/19/16 12:00 98.0 F 78 18 118/59 93 - Physical Examination HEENT: Positive: PERRL, Normocephaly, Mucus Membranes Moist Neck: Positive: neck supple, trachea midline Neuro: Positive: Grossly Intact Abdomen: Positive: Soft, Active Bowel Sounds. Negative: Tender Skin: Positive: Clear. Negative: Rash Extremities: Present: +1 Edema (left lower leg) - Imaging and Cardiology EKG: image reviewed Echo: pending - EKG Sinus rhythms and dysrhythmias: sinus rhythm
[2016-07-20 12:50] VITALS: BP 164/81
--- NOTE | 2016-07-20 12:51 | Treadmill Report ---
NUCLEAR PERFUSION SCAN REFERRING PHYSICIAN: Hospitalist service . PROTOCOL: The patient was brought to the stress lab in a post-absorptive state, given 10 mCi of technetium 99m at rest. The patient underwent rest imaging. The patient underwent Lexiscan stress test. At peak stress, the patient was given 26 mCi of technetium 99m. Shortly thereafter, the patient underwent stress imaging. Raw imaging reveals mild GI artifact. No significant motion artifact. SPECT imaging examined carefully in the horizontal long axis, vertical long axis, and short axis views. There is normal homogenous uptake of radioisotope in all reported segments. No evidence of significant fixed or reversible perfusion defect suggestive of prior infarction or ischemia. Gated wall motion reveals normal systolic thickening. Calculated ejection fraction of 61%. No TID. CONCLUSIONS: 1. Normal myocardial perfusion scan without evidence of active ischemia or prior infarction. 2. Normal left ventricular systolic performance without evidence of transient ischemic dilatation or stress-induced segmental wall motion abnormalities. 3. Lexiscan stress test is reported separately. JOB# [id number] SBM/NTS
[2016-07-20] MEDS: ECOTRIN PO SCH (12:54)
[2016-07-20] MEDS: PEPCID PO SCH (12:54)
--- NOTE | 2016-07-20 13:43 | Discharge Summary ---
Providers - Providers Date of Admission: 07/18/16 15:02 Date of discharge: 07/20/16 Attending physician: SULLY QUINTANA 07/18/16 Consult to Cardiac Rehabilitation [CONS] Routine Reason For Exam: Phase I 07/19/16 12:45 Consult to Physician [CONS] Routine Consulting Provider: JENNIFER IBARRA Reason For Exam: syncope Place consult to:: cardiology human resources compensation analyst Notified:: SONALI Was contact made?: Yes Primary care physician: MORTGAGE BRANCH MANAGER Hospitalization Condition: Good Hospital course: Discharge Diagnosis: Syncope with prodrome, likley vasovagal: head CT negative chest CTA negative for PE carotids negative tte - nl lv fxn, no sig valvulopathy or pericardial effusion Lexiscan thallium stress test this reveals no ischemia/infarct and nl lv fxn tele unremarkable H/o COPD not in exacerbation HTN, benign essential Obesity due to access calorie Acute diarrhea, likely gastroenteritis, resolved Disposition: DISCHARGED TO HOME OR SELFCARE Time spent for discharge: 32 minutes Core Measure Documentation - Palliative Care Palliative Care/ Comfort Measures: Not Applicable - Core Measures Any of the following diagnoses?: none Exam - Physical Exam Narrative exam: GENERAL: This is well-developed obese WF lying on bed appeared to be in no discomfort. HEENT: Normocephalic. No conjunctival congestion or icterus. Patient has moist mucous membranes. External auditory canal and nares patent bilaterally. NECK: Supple. Trachea midline. CHEST/LUNGS: Clear to auscultated bilaterally. breathing nonlabored. HEART/CARDIOVASCULAR: Regular in rate and rhythm. PMI at the apex. . ABDOMEN: Abdomen is soft, nontender. Patient has normal bowel sounds. SKIN: There is no rash, Warm and dry. NEUROLOGY: The patient is awake, alert, and oriented. No focal motor deficit. MUSCULOSKELETAL: No joint effusion or tenderness. EXTRIMITY: No edema, cyanosis or clubbing. PSYCH: No depression or anxiety noted. Cooperative. - Constitutional Vitals: Temp Pulse Resp BP Pulse Ox 97.6 F 95 H 20 164/81 95 07/20/16 08:00 07/20/16 12:00 07/20/16 08:00 07/20/16 11:07 07/20/16 08:00 Plan Activity: advance as tolerated, fall precautions Weight Bearing Status: Non-Weight Bearing Diet: low cholesterol, low salt Follow up with: PRIMARY CARE, [Primary Care Provider] - 3-5 Days
== END 2016-07-20 16:29 | disposition home or self-care (01) | DRG 312 ==
LOC: ED 11:17 → 4A 15:02
PROVIDERS: ADMIT Internal Medicine; ATTEND Internal Medicine
DX: R55 Syncope and collapse (principal); E66.9 Obesity, unspecified; K52.9 Noninfective gastroenteritis and colitis, unspecified; J44.9 Chronic obstructive pulmonary disease, unspecified; I50.9 Heart failure, unspecified; I11.0 Hypertensive heart disease with heart failure; E78.5 Hyperlipidemia, unspecified; Z82.49 Family history of ischemic heart disease and other diseases of the circulatory system; Z87.891 Personal history of nicotine dependence; Z80.3 Family history of malignant neoplasm of breast; Z68.31 Body mass index [BMI] 31.0-31.9, adult
CPT/HCPCS: 36415; 70450; 71010; 71275; 78452; 80053; 80061; 81001; 82550; 82553; 83735; 83880; 84443; 84484; 85007; 85025; 85379; 85610; 93005; 93010; 93017; 93306; 93880; 93970; A9502; J1650; J2405; J2785; J7030; Q9967

== ENCOUNTER 2017-09-12 08:27 | Outpatient (CLI) | payer MEDICARE ==
--- NOTE | 2017-09-12 16:19 | Mammography Report ---
BILATERAL DIGITAL SCREENING MAMMOGRAM with CAD: 09/12/17 08:27:00 CLINICAL: Routine screening. COMPARISON:11/21/14 FINDINGS: The breasts are almost entirely fatty.Stable bilateral heavily calcified oval circumscribed masses. No new mass, architectural distortion or suspicious calcifications. IMPRESSION: No mammographic evidence of malignancy. BI-RADS CATEGORY: 2 -- Benign RECOMMENDATION: Routine mammographic screening in one year. COMMENT: Patient follow-up letters are generated by our [employer] application.
== END 2017-09-12 08:28 | disposition home or self-care (01) ==
LOC: MAMMO 08:27
PROVIDERS: ATTEND Hospitalist
DX: Z12.31 Encounter for screening mammogram for malignant neoplasm of breast (principal)
CPT/HCPCS: 77067

== ENCOUNTER 2018-07-23 13:08 | Inpatient (IN) | payer MEDICARE ==
--- NOTE | 2018-07-23 13:12 | Emergency Department Report ---
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 Apparently, at 12:29 PM, the patient had some acute right-sided weakness and decreased responsiveness. She has a past medical history of hypertension and COPD. She last smoked in 2011. No pre vious history of any CVA. The patient is currently a poor historian secondary to her acute medical condition. She received some albuterol in route with EMS secondary to her wheezing. She doesn't having a few days of wheezing and shortness of breath, which is what brought her to the third grade teacher office. Some of this information was obtained through EMS and from previous records at this hospital. ED Past Medical Hx - Past Medical History Hx Hypertension: Yes Hx Congestive Heart Failure: Yes Hx COPD: Yes - Social History Smoking Status: Former Smoker - Medications Home Medications: Home Medications Medication Instructions Recorded Confirmed Last Taken Type Furosemide [Lasix TAB] 40 mg PO DAILY 07/18/16 07/23/18 07/18/16 History Potassium Chloride [K-Dur] 10 meq PO DAILY 07/18/16 07/23/18 07/18/16 History Albuterol Sulfate [Ventolin HFA] 1 puff IH PRN PRN 07/23/18 07/23/18 Unknown History Atenolol [Tenormin] 100 mg PO DAILY 07/23/18 07/23/18 Unknown History Lisinopril [Zestril] 40 mg PO DAILY 07/23/18 07/23/18 Unknown History Loratadine [Claritin] 10 mg PO DAILY 07/23/18 07/23/18 Unknown History Omeprazole 40 mg PO DAILY 07/23/18 07/23/18 Unknown History levoFLOXacin [Levaquin] 750 mg PO DAILY 07/23/18 07/23/18 Unknown History predniSONE [Deltasone] 60 mg PO DAILY 07/23/18 07/23/18 Unknown History ED Review of Systems ROS: Stated complaint: STROKE Other details as noted in HPI Comment: Unobtainable due to pts medical conditions Physical Exam - Physical Exam Physical Exam: GENERAL: The patient is well-developed well-nourished. HEENT: Normocephalic. Atraumatic. Patient has moist mucous membranes. EYES: Extraocular motions are intact. Pupils are equal and reactive to light bilaterally. NECK: Supple. Trachea is midline. CHEST/LUNGS: Clear to auscultation. There is no respiratory distress noted. HEART/CARDIOVASCULAR: Regular. There is no tachycardia. There is no obvious murmur. ABDOMEN: Abdomen is soft, nontender. Patient has normal bowel sounds. There is no abdominal distention. SKIN: Skin is warm and dry. NEURO: Patient is awake but otherwise not following commands. She is nonverbal. Patient has right-sided facial droop. She has right-sided hemiparesis with some left lower extremity weakness. MUSCULOSKELETAL: There is no tenderness or deformity. There is no evidence of acute injury. ED Course - Consultations Consultation #1: 07/23/18 13:30 I spoke with the telemedicine neurologist, Dr Alvarez, who will beam into the monitor for evaluation of this patient for CVA and possible TPA. 07/23/18 13:53 Patient has been seen by Dr. Alvarez. The family is at bedside. The decision to give TPA has been made by the family, neurologist and myself. Family is aware of the risks and benefits of TPA administration. The patient will have a CT angiography of the head and neck after the bolus of TPA has been given. ED Medical Decision Making - Lab Data Result diagrams: 07/23/18 13:20 07/23/18 13:20 - EKG Data -: EKG Interpreted by [facility] EKG shows normal: sinus rhythm, axis, intervals (prolonged QT and QTC intervals), QRS complexes (Q waves to the septal leads), ST-T waves Rate: normal - EKG Data When compared to previous EKG there are: previous EKG unavailable Interpretation: other (sinus rhythm, Q waves to the septal leads, prolonged QT and QTC intervals) - Radiology Data Radiology results: report reviewed CT HEAD WITHOUT CONTRAST: HISTORY: Stroke symptoms. TECHNIQUE: Sequential 2.5mm CT images. COMPARISON: 07/18/16. FINDINGS: Cerebral Parenchyma: Mild nonspecific chronic white matter changes are again noted. The remaining brain parenchyma demonstrates normal attenuation. Cerebellum: Within normal limits. Brainstem: Within normal limits. Ventricles: Normal. Sella: Normal. Extra-axial spaces: Normal. Basal Cisterns: Normal. Intracranial Hemorrhage: None. Midline Shift: None. Calvarium: Normal. Sinuses: Normal. Mastoid Air Cells: Normal. Visualized Orbits: Normal. IMPRESSION: Nonspecific chronic white matter changes most likely representing chronic microangiopathy. No acute intracranial process is identified. These findings were discussed with Dr. Barnes in the emergency department at 1318 hrs. Transcribed By: TTR Dictated By: THIAGO QURESHI JR, MD Electronically Authenticated By: THIAGO QURESHI JR, MD Signed Date/Time: 07/23/18 1320 PROCEDURE: CT ANGIO NECK TECHNIQUE: Following administration of IV contrast axial helical imaging was performed through the neck with sagittal and coronal reformatted images and maximum intensity projection images obtained. HISTORY: CVA COMPARISONS: CT angiogram brain also performed today FINDINGS: There is normal enhancement of the cervical carotid and vertebral arteries without evidence of occlusion, aneurysm or dissection. There is approximately 60% stenosis of the proximal left internal carotid artery . The right internal carotid artery is tortuous. There is no other evidence of stenosis. There is atherosclerotic vascular calcification at the carotid bifurcation bilaterally. There is normal enhancement of the major cervical venous structures. The bony structures are notable for cervical spondylosis. The visualized portions of the lungs are notable for the appearance of pulmonary emphysema. IMPRESSION: 1. Approximately 60% stenosis proximal left internal carotid artery. 2. Atherosclerotic vascular calcification carotid bifurcation bilaterally. 3. Cervical spondylosis. 4. Pulmonary emphysema. This document is electronically signed by Kelly Newman MD., July 23 2018 06:45:50 PM ET Transcribed By: ED Dictated By: KELLY NEWMAN MD Electronically Authenticated By: KELLY NEWMAN MD Signed Date/Time: 07/23/18 2277 PROCEDURE: CT ANGIO HEAD TECHNIQUE: Following administration of IV contrast axial helical imaging was performed through the brain with sagittal and coronal reformatted images and maximum intensity projection images obtained. HISTORY: CVA COMPARISONS: CT angiogram neck also performed today FINDINGS: There is normal enhancement of the major intracranial arteries without evidence of occlusion or aneurysm and no definite evidence of hemodynamically significant stenosis. However, segments of stenoses could be missed due to technique. The predominant supply to the posterior cerebral arteries bilaterally is from the internal carotid arteries via the posterior communicating arteries (normal variant). There is atherosclerotic vascular calcification of the cavernous and supraclinoid segments of the internal carotid arteries There is normal enhancement of the major intracranial venous structures. IMPRESSION: 1. No evidence of occlusion or aneurysm and no definite evidence of hemodynamically significant stenosis of the major intracranial arteries. However, segments of stenoses could be missed due to technique. This document is electronically signed by Kelly Newman MD., July 23 2018 06:07:06 PM ET Transcribed By: ED Dictated By: KELLY NEWMAN MD Electronically Authenticated By: KELLY NEWMAN MD Signed Date/Time: 07/23/18 180 - Medical Decision Making Patient went to the third grade teacher today secondary to some bronchospasm and/or possible COPD exacerbation. While there the patient started having strokelike symptoms including right-sided weakness, aphasia, a right-sided facial droop. She has a NIHSS of 22. CT head did not show any bleed, shift, mass, ischemia or any acute process. The patient was within the TPA window without any obvious contraindications. She was evaluated by myself, the telemedicine neurologist and after discussion with the family regarding risks vs benefits, TPA was administered. After the TPA was given, the patient went for a CT angiography of the head and neck. The patient was reevaluated after the CT angiography imaging and appeared to show some improvement. She began moving all her extremities and speaking to family. The CT angiography imaging was read by neurosurgery/stroke attending did not see any obvious signs of a large vessel occlusion. About this time, the patient started having some regression back to her original strokelike symptoms. Therefore, the patient was sent for another C T scan of the head without contrast to make sure that there was no hemorrhagic conversion but there does not appear to be any acute bleed. Patient's labs have been unremarkable and do not show any etiology for symptoms. She was given some breathing treatments earlier for the bronchospasm. Patient will be admitted to the hospital for MRI, carotid ultrasounds, further evaluation and treatment and the patient was accepted for admission by the hospitalist, Dr. Valente. Critical Care Time: Yes Critical care time in (mins) excluding proc time.: 75 Critical care attestation.: If time is entered above; I have spent that time in minutes in the direct care of this critically ill patient, excluding procedure time. Critical care time was spent on this patient in doing her initial evaluation, multiple re-evaluations, ordering and interpretation of labs and imaging, TPA administration, discussion with the patient and her family, consult with telemedicine neurology. Critical Care Time: 75 minutes ED Disposition Clinical Impression: CVA (cerebral vascular accident) Qualifiers: Precerebral and cerebral artery: middle cerebral artery Laterality of affected vessel: left HTN (hypertension) Qualifiers: Hypertension type: essential hypertension Qualified Code(s): I10 - Essential (primary) hypertension COPD (chronic obstructive pulmonary disease) Qualifiers: COPD type: chronic bronchitis Disposition: OP ADMIT IP TO THIS HOSP Is pt being admited?: Yes Condition: Serious Time of Disposition: :26 - Assessment Assessment Interval: Baseline - Level of Consciousness 1a. Level of Consciousness: alert/keenly responsive - LOC Questions 1b. LOC Questions: aphasic - LOC Command 1c. LOC Commands: performs no tasks correctly - Best Gaze 2. Best Gaze: normal - Visual 3. Visual: no visual loss - Facial Palsy 4. Facial Palsy: partial paralysis - Motor Arm 5b. Motor Arm Right: some gravity effort 5a. Motor Arm Left: some gravity effort - Motor Leg 6b. Motor Leg Right: no movement 6a. Motor Leg Left: drift - Limb Ataxia 7. Limb Ataxia: absent - Sensory 8. Sensory: normal - Best Language 9. Best Language: mute/global aphasia - Dysarthria 10. Dysarthria: mute/anarrthric - Extinction and Inattention 11. Extinction/Inattention: profound inattention - Scoring Total Score: 22 Stroke Severity: Severe Stroke
--- NOTE | 2018-07-23 13:24 | Cat Scan Report ---
CT HEAD WITHOUT CONTRAST: HISTORY: Stroke symptoms. TECHNIQUE: Sequential 2.5mm CT images. COMPARISON: 07/18/16. FINDINGS: Cerebral Parenchyma: Mild nonspecific chronic white matter changes are again noted. The remaining brain parenchyma demonstrates normal attenuation. Cerebellum: Within normal limits. Brainstem: Within normal limits. Ventricles: Normal. Sella: Normal. Extra-axial spaces: Normal. Basal Cisterns: Normal. Intracranial Hemorrhage: None. Midline Shift: None. Calvarium: Normal. Sinuses: Normal. Mastoid Air Cells: Normal. Visualized Orbits: Normal. IMPRESSION: Nonspecific chronic white matter changes most likely representing chronic microangiopathy. No acute intracranial process is identified. These findings were discussed with Dr. Barnes in the emergency department at 1318 hrs.
[2018-07-23 13:29] LABS: Basophils % (Auto) 0.1 % (0.0-1.8); Hematocrit 48.3 % (30.3-42.9); Hemoglobin 16.3 gm/dl (10.1-14.3); Lymphocytes # (Auto) 0.6 K/mm3 (1.2-5.4); Lymphocytes % (Auto) 6.8 % (13.4-35.0); Mean Corpuscular HGB Conc 34 % (30-34); Mean Corpuscular Volume 86 fl (79-97); Monocytes # (Auto) 0.4 K/mm3 (0.0-0.8); Monocytes % (Auto) 4.4 % (0.0-7.3); Platelet Count 214 K/mm3 (140-440); Red Blood Count 5.62 M/mm3 (3.65-5.03); Red Cell Distribution Width 14.6 % (13.2-15.2)
[2018-07-23] MEDS ORDERED: ACTIVASE ONE (13:32)
[2018-07-23 13:40] LABS: INR 0.96 (0.87-1.13)
[2018-07-23 13:41] LABS: Partial Thromboplastin Time 20.1 Sec. (24.2-36.6); Thrombin Time 19.6 Sec. (15.1-19.6)
[2018-07-23] MEDS ORDERED: APRESOLINE IV ONE (13:43)
[2018-07-23 13:45] LABS: Creatine Kinase MB 1.9 ng/mL (0.0-4.0)
[2018-07-23 13:46] LABS: Alanine Aminotransferase 14 units/L (7-56); Albumin 4.4 g/dL (3.9-5); BUN/Creatinine Ratio 24; Blood Urea Nitrogen 24 mg/dL (7-17); Calcium 9.3 mg/dL (8.4-10.2); Hemolysis Index 34
[2018-07-23] MEDS ORDERED: APRESOLINE ONE (13:46)
[2018-07-23] MEDS ORDERED: NACL 0.9% IV ONE (13:49)
[2018-07-23] MEDS ORDERED: ACTIVASE IV ONE ×2 (13:49)
[2018-07-23] MEDS ORDERED: NACL 0.9% 1000 ML 1,000 ML ONE (14:05)
[2018-07-23] MEDS ORDERED: DUONEB *Not for PRN Use IH ONE ×2 (14:12→23:08)
[2018-07-23] MEDS ORDERED: ZOFRAN IV ONE ×2 (15:56)
[2018-07-23 15:59] LABS: Amphetamine Screen,Urine PRESUMPTIVE NEGATIVE; Benzodiazepines Screen,Urine PRESUMPTIVE NEGATIVE; Cannabinoid Screen,Urine PRESUMPTIVE NEGATIVE; Cocaine Screen,Urine PRESUMPTIVE NEGATIVE; Methadone Screen,Urine PRESUMPTIVE NEGATIVE; Opiate Screen,Urine PRESUMPTIVE NEGATIVE
[2018-07-23] MEDS ORDERED: ZOFRAN ONE (16:00)
[2018-07-23 16:20] LABS: Bilirubin,Urine NEG (Negative); Blood,Urine NEG (Negative); Color,Urine Straw (Yellow); Protein,Urine <15 mg/dL mg/dL (Negative); Urobilinogen,Urine < 2.0 mg/dL (<2.0); WBC,Urine < 1.0 /HPF (0.0-6.0)
--- NOTE | 2018-07-23 16:22 | History and Physical Report ---
History of Present Illness Chief complaint: She had a stroke History of present illness: 68 YO Female with Obesity, HTN, COPD, CHF presents to ED for evaluation. Pt is lethargic and unable to provide history. Pt family is at bedside during exam and interview and provides history. 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 EMS was notified and upon arrival the patient was found to have neurologic deficit. A code stroke was called and the patient was transported to [facility]. Pt seen and evaluated in ED and found to have Acute CVA and was terated with TPA in ED. Teleneurology consulted. Pt admitted to ICU and initiated on CVA protocol. No reports of fever, chills, CP, Palpitations, NVD, Trauma, productive cough, or recent ill contacts. Past History Past Medical History: COPD, heart failure, hypertension Past Surgical History: No surgical history, Other (reviewed) Social history: , lives with family. denies: smoking, alcohol abuse, prescription drug abuse Family history: hypertension Medications and Allergies Allergies Allergy/AdvReac Type Severity Reaction Status Date / Time No Known Allergies Allergy Verified 07/18/16 13:05 Home Medications Medication Instructions Recorded Confirmed Last Taken Type Furosemide [Lasix TAB] 40 mg PO DAILY 07/18/16 07/23/18 07/18/16 History Potassium Chloride [K-Dur] 10 meq PO DAILY 07/18/16 07/23/18 07/18/16 History Albuterol Sulfate [Ventolin HFA] 1 puff IH PRN PRN 07/23/18 07/23/18 Unknown History Atenolol [Tenormin] 100 mg PO DAILY 07/23/18 07/23/18 Unknown History Lisinopril [Zestril] 40 mg PO DAILY 07/23/18 07/23/18 Unknown History Loratadine [Claritin] 10 mg PO DAILY 07/23/18 07/23/18 Unknown History Omeprazole 40 mg PO DAILY 07/23/18 07/23/18 Unknown History levoFLOXacin [Levaquin] 750 mg PO DAILY 07/23/18 07/23/18 Unknown History predniSONE [Deltasone] 60 mg PO DAILY 07/23/18 07/23/18 Unknown History Review of Systems ROS unobtainable: due to mental status Exam - Constitutional Vitals: Temp Pulse Resp BP Pulse Ox 98.3 F 84 19 128/71 94 07/23/18 13:10 07/23/18 15:31 07/23/18 15:31 07/23/18 15:31 07/23/18 15:31 General appearance: Present: mild distress, obese - EENT Eyes: Present: miosis - Neck Neck: Present: supple, normal ROM - Respiratory Respiratory effort: normal Respiratory: bilateral: CTA - Cardiovascular Heart Sounds: Present: S1 & S2. Absent: rub, click - Extremities Extremities: pulses symmetrical, No edema Peripheral Pulses: within normal limits - Abdominal General gastrointestinal: Present: soft, non-tender, non-distended, normal bowel sounds Female genitourinary: Present: normal - Integumentary Integumentary: Present: clear, dry, decreased turgor - Musculoskeletal Musculoskeletal: right sided weakness - Psychiatric Psychiatric: no appropriate mood/affect, no intact judgment & insight, no memory intact - Neurologic Neurologic: no CNII-XII intact, focal deficits, no moves all extremities, no gait normal Results - Labs CBC & Chem 7: 07/23/18 13:20 07/23/18 13:20 Labs: Abnormal lab results 07/23/18 07/23/18 07/23/18 Range/Units 13:20 13:20 13:20 RBC 5.62 H (3.65-5.03) M/mm3 Hgb 16.3 H (10.1-14.3) gm/dl Hct 48.3 H (30.3-42.9) % Lymph % (Auto) 6.8 L (13.4-35.0) % Lymph # 0.6 L (1.2-5.4) K/mm3 Seg Neutrophils % 88.7 H (40.0-70.0) % Seg Neutrophils # 8.1 H (1.8-7.7) K/mm3 APTT 20.1 L (24.2-36.6) Sec. Chloride 96.9 L (98-107) mmol/L BUN 24 H (7-17) mg/dL Glucose 163 H (65-100) mg/dL Assessment and Plan - Patient Problems (1) CVA (cerebral vascular accident) Current Visit: Yes Status: Acute Qualifiers: Precerebral and cerebral artery: middle cerebral artery Laterality of affected vessel: left Plan to address problem: Admit to ICU, S/P TPA, Neurology consulted, neuro checks, CT head, MRI Brain, MRA Brain, Echo, Carotid doppler, statin therapy, lipid panel, PT/OT/Speech Therapy. Teleneurology consulted in ED The high probability of a clinically significant, sudden or life threatening deterioration of the [neuro, respiratory] system(s) required my full and direct attention, intervention and personal management. The aggregate critical care time was [65] minutes. This time is in addition to time spent performing reported procedures but includes the following: [x] Data Review and interpretation [x] Patient assessment and monitoring of vital signs [x] Documentation [x] Medication orders and management (2) HTN (hypertension) Current Visit: Yes Status: Acute Qualifiers: Hypertension type: essential hypertension Qualified Code(s): I10 - Essential (primary) hypertension Plan to address problem: monitor bp q shift, permissive htn overnight. (3) Heart failure Current Visit: Yes Status: Acute Qualifiers: Heart failure chronicity: chronic Plan to address problem: strict I/O, daily weight, afterload reduction, (4) COPD (chronic obstructive pulmonary disease) Current Visit: Yes Status: Acute Qualifiers: COPD type: chronic bronchitis Plan to address problem: supplemental oxygen, nebulizer therapy, chest x ray, pulse oximetry. (5) DVT prophylaxis Current Visit: Yes Status: Acute Plan to address problem: SCD to ble while in bed.
[2018-07-23] MEDS ORDERED: TYLENOL PO PRN (16:23)
[2018-07-23] MEDS ORDERED: PHENERGAN PR PRN (16:23)
[2018-07-23] MEDS ORDERED: REGLAN PO PRN (16:23)
[2018-07-23] MEDS ORDERED: MILK OF MAGNESIA PO PRN (16:23)
[2018-07-23] MEDS ORDERED: ZOFRAN IV PRN (16:23)
[2018-07-23 16:27] LABS: Mucus,Urine FEW /HPF
--- NOTE | 2018-07-23 16:39 | XRay Report ---
PROCEDURE: XR CHEST 1V AP TECHNIQUE: Single frontal view of the chest HISTORY: SOB COMPARISONS: None. FINDINGS: The cardiomediastinal silhouette is normal in appearance. There is blunting of the left costophrenic angle. There is no focal consolidation. No acute bony or soft tissue abnormality. IMPRESSION: Blunting of the left costophrenic angle that may represent a small pleural effusion. This document is electronically signed by Rylie Reed MD., July 23 2018 04:37:41 PM ET
--- NOTE | 2018-07-23 17:38 | Consultation ---
History of Present Illness Consult date: 07/23/18 Chief complaint: right sided weakness History of present illness: This is a 68 YO F who sudeenly became weak at her pulmonologists's office and was brought to the ED. Pt evaluated by teleneuro and given Alteplase. On my arrival pt is sleepy but is moving all extremities. Family is at bedside but not much additional history given. Past History Past Medical History: COPD, heart failure, hypertension Past Surgical History: No surgical history, Other (reviewed) Social history: , lives with family. denies: smoking, alcohol abuse, prescription drug abuse Family history: hypertension Medications and Allergies Allergies Allergy/AdvReac Type Severity Reaction Status Date / Time No Known Allergies Allergy Verified 07/18/16 13:05 Home Medications Medication Instructions Recorded Confirmed Last Taken Type Furosemide [Lasix TAB] 40 mg PO DAILY 07/18/16 07/23/18 07/18/16 History Potassium Chloride [K-Dur] 10 meq PO DAILY 07/18/16 07/23/18 07/18/16 History Albuterol Sulfate [Ventolin HFA] 1 puff IH PRN PRN 07/23/18 07/23/18 Unknown History Atenolol [Tenormin] 100 mg PO DAILY 07/23/18 07/23/18 Unknown History Lisinopril [Zestril] 40 mg PO DAILY 07/23/18 07/23/18 Unknown History Loratadine [Claritin] 10 mg PO DAILY 07/23/18 07/23/18 Unknown History Omeprazole 40 mg PO DAILY 07/23/18 07/23/18 Unknown History levoFLOXacin [Levaquin] 750 mg PO DAILY 07/23/18 07/23/18 Unknown History predniSONE [Deltasone] 60 mg PO DAILY 07/23/18 07/23/18 Unknown History Active Meds: Active Medications Acetaminophen (Tylenol) 650 mg PO Q4H PRN PRN Reason: Pain, Mild (1-3) Aspirin (Aspirin) 325 mg PO QDAY KYUNG Atorvastatin Calcium (Lipitor) 40 mg PO QHS KYUNG Bisacodyl (Dulcolax) 10 mg [place] QDAY PRN PRN Reason: Constipation Furosemide (Lasix) 40 mg PO DAILY KYUNG Magnesium Hydroxide (Milk Of Magnesia) 30 ml PO Q4H PRN PRN Reason: Constipation Metoclopramide HCl (Reglan) 10 mg PO Q6H PRN PRN Reason: Nausea And Vomiting Ondansetron HCl (Zofran) 4 mg IV Q8H PRN PRN Reason: Nausea And Vomiting Potassium Chloride (K-Dur) 10 meq PO DAILY KYUNG Prednisone (Deltasone) 60 mg PO DAILY KYUNG Promethazine HCl (Phenergan) 25 mg [place] Q6H PRN PRN Reason: Nausea And Vomiting Sodium Chloride (Sodium Chloride Flush Syringe 10 Ml) 10 ml IV PRN PRN PRN Reason: LINE FLUSH Review of Systems ROS unobtainable: due to mental status Physical Examination - Vital Signs Vital Signs: Vital Signs Temp Pulse Resp BP Pulse Ox 98.3 F 74 26 H 167/93 98 07/23/18 13:10 07/23/18 13:10 07/23/18 13:10 07/23/18 13:10 07/23/18 13:10 - EENT EENT: Present: PERRL, mucous membranes moist - Respiratory Respiratory: Present: lungs clear - Cardiovascular Cardiovascular: Present: regular rate Extremities: Present: no peripheral edema bilatateraly - Gastrointestinal Gastrointestinal: Present: normoactive bowel sounds - Neurologic Cranial nerve examination: PERRL, EOMI, face symmetric, tongue midline Speech examination: other (sparse speech but follows commands) Detailed motor examination: other (will move all extremities just against gravity, might be slightly weaker on the right) Reflexes: 1+: ankle, bicep, knee, tricep - Assessment Assessment Interval: Baseline - Level of Consciousness 1a. Level of Consciousness: arousable/minor stimuli - LOC Questions 1b. LOC Questions: answers no questions correctly - LOC Command 1c. LOC Commands: performs tasks correctly - Best Gaze 2. Best Gaze: normal - Visual 3. Visual: no visual loss - Facial Palsy 4. Facial Palsy: normal symmetrical movement - Motor Arm 5b. Motor Arm Right: drift 5a. Motor Arm Left: drift - Motor Leg 6b. Motor Leg Right: drift 6a. Motor Leg Left: drift - Limb Ataxia 7. Limb Ataxia: present 2 limbs - Sensory 8. Sensory: normal - Best Language 9. Best Language: mute/global aphasia - Dysarthria 10. Dysarthria: mute/anarrthric - Extinction and Inattention 11. Extinction/Inattention: no abnormality - Scoring Total Score: 14 Stroke Severity: Moderate Stroke Results - Laboratory Findings CBC and BMP: 07/23/18 13:20 07/23/18 13:20 Abnormal Lab Findings: Abnormal Labs 07/23/18 07/23/18 07/23/18 13:20 13:20 13:20 RBC 5.62 H Hgb 16.3 H Hct 48.3 H Lymph % (Auto) 6.8 L Lymph # 0.6 L Seg Neutrophils % 88.7 H Seg Neutrophils # 8.1 H APTT 20.1 L Chloride 96.9 L BUN 24 H Glucose 163 H - Diagnostic Findings Additional findings: CT head no bleed Assessment and Plan This is a 68 YO F with acute onset of right sided weakness, treated with Alteplase REcommend: ICU admission with post Alteplase protocol Repeat CT head 24 hrs post Alteplase MRI Brain, CTA head, neck noted, echo pending PT/OT/ST VTE prophylaxis No anticoagulation or antiplatelet therapy until pt is cleared with [address] head COntinue care for all medical issues as you are doing POC discussed with pt and fmaily at bedside Call with questions.
--- NOTE | 2018-07-23 18:09 | Cat Scan Report ---
PROCEDURE: CT ANGIO HEAD TECHNIQUE: Following administration of IV contrast axial helical imaging was performed through the b rain with sagittal and coronal reformatted images and maximum intensity projection images obtained. HISTORY: CVA COMPARISONS: CT angiogram neck also performed today FINDINGS: There is normal enhancement of the major intracranial arteries without evidence of occlusion or aneur ysm and no definite evidence of hemodynamically significant stenosis. However, segments of stenoses c ould be missed due to technique. The predominant supply to the posterior cerebral arteries bilaterally is from the internal carotid ar teries via the posterior communicating arteries (normal variant). There is atherosclerotic vascular calcification of the cavernous and supraclinoid segments of the int ernal carotid arteries There is normal enhancement of the major intracranial venous structures. IMPRESSION: 1. No evidence of occlusion or aneurysm and no definite evidence of hemodynamically significant steno sis of the major intracranial arteries. However, segments of stenoses could be missed due to techniqu e. This document is electronically signed by Kelly Newman MD., July 23 2018 06:07:06 PM ET
--- NOTE | 2018-07-23 18:47 | Cat Scan Report ---
PROCEDURE: CT ANGIO NECK TECHNIQUE: Following administration of IV contrast axial helical imaging was performed through the n [place] with sagittal and coronal reformatted images and maximum intensity projection images obtained. HISTORY: CVA COMPARISONS: CT angiogram brain also performed today FINDINGS: There is normal enhancement of the cervical carotid and vertebral arteries without evidence of occlus ion, aneurysm or dissection. There is approximately 60% stenosis of the proximal left internal carotid artery. The right internal carotid artery is tortuous. There is no other evidence of stenosis. There is atherosclerotic vascular calcification at the carotid bifurcation bilaterally. There is normal enhancement of the major cervical venous structures. The bony structures are notable for cervical spondylosis. The visualized portions of the lungs are notable for the appearance of pulmonary emphysema. IMPRESSION: 1. Approximately 60% stenosis proximal left internal carotid artery. 2. Atherosclerotic vascular calcification carotid bifurcation bilaterally. 3. Cervical spondylosis. 4. Pulmonary emphysema. This document is electronically signed by Kelly Newman MD., July 23 2018 06:45:50 PM ET
[2018-07-23] MEDS ORDERED: MORPHINE IV ONE (21:33)
[2018-07-23] MEDS ORDERED: MORPHINE ONE (21:51)
--- NOTE | 2018-07-23 22:09 | Cat Scan Report ---
PROCEDURE: CT HEAD/BRAIN WO CON TECHNIQUE: Axial images of the head obtained without intravenous contrast HISTORY: CVA, worsening post-TPA COMPARISONS: Prior examination from 1:08 PM FINDINGS: There is mild contrast enhancement secondary to residual contrast from prior CTA of the head and neck . Ventricles are normal in size and configuration. No intracranial hemorrhage or hematoma. No evidence of intracranial mass or mass effect. No edema or sulcal effacement. Small air-fluid level in the left maxillary sinus again noted. No other significant interval change. IMPRESSION: No evidence of acute intracranial pathology. Mild contrast enhancement secondary to residual contrast from prior CTA of the head and neck.. This document is electronically signed by Abraham Santizo MD., July 23 2018 10:06:57 PM ET
[2018-07-24 06:28] LABS: Chol/HDL Ratio 6.43 %
[2018-07-24] MEDS: DUONEB *Not for PRN Use IH SCH ×3 (07:45→19:27)
[2018-07-24] MEDS ORDERED: K-DUR PO SCH (10:00)
[2018-07-24] MEDS ORDERED: LASIX PO SCH (10:00)
[2018-07-24] MEDS ORDERED: DELTASONE PO SCH (10:00)
--- NOTE | 2018-07-24 10:33 | Progress Note ---
Assessment and Plan Assessment and plan: Patient is a 68 yo woman with a history of Obesity, HTN, COPD, and CHF who presented with acute onset of right sided weakness, treated with Alteplase -Acute Ischemic Stroke with Right hemiparesis and expressive aphasia s/p tPA: stroke protocol but hold oral statin due to speech/swallow impairment, use rectal ASA unless passes swallow evaluation, Neurology is following -Accelerated HTN due to above: permissive for now, Neurology is following -Chronic Heart failure: strict I/O, daily weight, afterload reduction, -COPD (chronic obstructive pulmonary disease): supplemental oxygen, nebulizer therapy, chest x ray, pulse oximetry. Neurology REcommend: "ICU admission with post Alteplase protocol Repeat CT head 24 hrs post Alteplase MRI Brain, CTA head, neck noted, echo pending PT/OT/ST VTE prophylaxis No anticoagulation or antiplatelet therapy until pt is cleared with [address] head COntinue care for all medical issues as you are doing POC discussed with pt and fmaily at bedside Call with questions." History Interval history: Patient was seen and examined. Follow-up on current diagnosis of CVA. Overnight uneventful. Patient denies any chest pain, shortness breath, nausea/vomiting or severe headaches. Imaging, nursing note, chart, labs and old chart reviewed. Discussed with patient. Hospitalist Physical - Physical exam Narrative exam: Gen: WDWN, NAD, Awake, Alert, appears Orientated HEENT: NCAT, EOMI, PERRL, OP Clear Neck: supple, no adenopathy, no thyromegaly, no JVD CVS/Heart: RRR, normal S1S2, pulses present bilaterally Chest/Lungs: CTA B, Symmetrical chest expansion, good air entry bilaterally GI/Abdomen: soft, NTND, good bowel sounds, no guarding or rebound /Bladder: no suprapubic tenderness, no CVA or paraspinal tenderness Extermity/Skin: no c/c/e, no obvious rash MSK: FROM x 4, but weaker on right ext Neuro: CN 2-12 grossly intact except speech, right sided hemiparesis, upper and lower Psych: calm - Constitutional Vitals: Temp Pulse Resp BP Pulse Ox 98.3 F 77 20 166/86 95 07/24/18 08:07 07/24/18 08:00 07/24/18 08:00 07/24/18 06:03 07/24/18 07:47 General appearance: Present: obese Results - Labs CBC & Chem 7: 07/23/18 13:20 07/23/18 13:20 Labs: Laboratory Last Values WBC 9.1 K/mm3 (4.5-11.0) 07/23/18 13:20 RBC 5.62 M/mm3 (3.65-5.03) H 07/23/18 13:20 Hgb 16.3 gm/dl (10.1-14.3) H 07/23/18 13:20 Hct 48.3 % (30.3-42.9) H 07/23/18 13:20 MCV 86 fl (79-97) 07/23/18 13:20 MCH 29 pg (28-32) 07/23/18 13:20 MCHC 34 % (30-34) 07/23/18 13:20 RDW 14.6 % (13.2-15.2) 07/23/18 13:20 Plt Count 214 K/mm3 (140-440) 07/23/18 13:20 Lymph % (Auto) 6.8 % (13.4-35.0) L 07/23/18 13:20 [place] % (Auto) 4.4 % (0.0-7.3) 07/23/18 13:20 Eos % (Auto) 0.0 % (0.0-4.3) 07/23/18 13:20 Baso % (Auto) 0.1 % (0.0-1.8) 07/23/18 13:20 Lymph # 0.6 K/mm3 (1.2-5.4) L 07/23/18 13:20 [place] # 0.4 K/mm3 (0.0-0.8) 07/23/18 13:20 Eos # 0.0 K/mm3 (0.0-0.4) 07/23/18 13:20 Baso # 0.0 K/mm3 (0.0-0.1) 07/23/18 13:20 Seg Neutrophils % 88.7 % (40.0-70.0) H 07/23/18 13:20 Seg Neutrophils # 8.1 K/mm3 (1.8-7.7) H 07/23/18 13:20 PT 13.4 Sec. (12.2-14.9) 07/23/18 13:20 INR 0.96 (0.87-1.13) 07/23/18 13:20 APTT 20.1 Sec. (24.2-36.6) L 07/23/18 13:20 Thrombin Time 19.6 Sec. (15.1-19.6) 07/23/18 13:20 Sodium 139 mmol/L (137-145) 07/23/18 13:20 Potassium 4.4 mmol/L (3.6-5.0) 07/23/18 13:20 Chloride 96.9 mmol/L (98-107) L 07/23/18 13:20 Carbon Dioxide 30 mmol/L (22-30) 07/23/18 13:20 Anion Gap 17 mmol/L 07/23/18 13:20 BUN 24 mg/dL (7-17) H 07/23/18 13:20 Creatinine 1.0 mg/dL (0.7-1.2) 07/23/18 13:20 Estimated GFR 55 ml/min 07/23/18 13:20 BUN/Creatinine Ratio 24 % 07/23/18 13:20 Glucose 163 mg/dL (65-100) H 07/23/18 13:20 Calcium 9.3 mg/dL (8.4-10.2) 07/23/18 13:20 Total Bilirubin 0.60 mg/dL (0.1-1.2) 07/23/18 13:20 AST 16 units/L (5-40) 07/23/18 13:20 ALT 14 units/L (7-56) 07/23/18 13:20 Alkaline Phosphatase 120 units/L (35-129) 07/23/18 13:20 Total Creatine Kinase 69 units/L (30-135) 07/23/18 13:20 CK-MB (CK-2) 1.9 ng/mL (0.0-4.0) 07/23/18 13:20 CK-MB (CK-2) Rel Index 2.7 (0-4) 07/23/18 13:20 Troponin T < 0.010 ng/mL (0.00-0.029) 07/23/18 13:20 Total Protein 7.0 g/dL (6.3-8.2) 07/23/18 13:20 Albumin 4.4 g/dL (3.9-5) 07/23/18 13:20 Albumin/Globulin Ratio 1.7 % 07/23/18 13:20 Triglycerides 277 mg/dL (2-149) H 07/24/18 05:30 Cholesterol 193 mg/dL (50-199) 07/24/18 05:30 LDL Cholesterol Direct 137 mg/dL (50-130) H 07/24/18 05:30 HDL Cholesterol 30 mg/dL (40-59) L 07/24/18 05:30 Cholesterol/HDL Ratio 6.43 % 07/24/18 05:30 Urine Color Straw (Yellow) 07/23/18 15:41 Urine Turbidity Clear (Clear) 07/23/18 15:41 Urine pH 7.0 (5.0-7.0) 07/23/18 15:41 Ur Specific [place] 1.018 (1.003-1.030) 07/23/18 15:41 Urine Protein <15 mg/dl mg/dL (Negative) 07/23/18 15:41 Urine Glucose (UA) Neg mg/dL (Negative) 07/23/18 15:41 Urine Ketones Neg mg/dL (Negative) 07/23/18 15:41 Urine Blood Neg (Negative) 07/23/18 15:41 Urine Nitrite Neg (Negative) 07/23/18 15:41 Urine Bilirubin Neg (Negative) 07/23/18 15:41 Urine Urobilinogen < 2.0 mg/dL (<2.0) 07/23/18 15:41 Ur Leukocyte Esterase Neg (Negative) 07/23/18 15:41 Urine WBC (Auto) < 1.0 /HPF (0.0-6.0) 07/23/18 15:41 Urine RBC (Auto) 1.0 /HPF (0.0-6.0) 07/23/18 15:41 Urine Mucus Few /HPF 07/23/18 15:41 Urine Opiates Screen Presumptive negative 07/23/18 15:41 Urine Methadone Screen Presumptive negative 07/23/18 15:41 Ur Barbiturates Screen Presumptive negative 07/23/18 15:41 Ur Phencyclidine Scrn Presumptive negative 07/23/18 15:41 Ur Amphetamines Screen Presumptive negative 07/23/18 15:41 U Benzodiazepines Scrn Presumptive negative 07/23/18 15:41 Urine Cocaine Screen Presumptive negative 07/23/18 15:41 U Marijuana (THC) Screen Presumptive negative 07/23/18 15:41 Drugs of Abuse Note Disclamer 07/23/18 15:41
[2018-07-24] MEDS ORDERED: CARDENE 50 MG in NACL 0.9% 250ML 230 ML IV SCH (12:00)
--- NOTE | 2018-07-24 17:45 | Progress Note ---
Assessment and Plan This is a 68 YO F with acute onset of right sided weakness, treated with Alteplase, looks like L MCA stroke. Also L ICA stenosis REcommend: Urgent follow up CT head to rule out hemorrhage then start antiplatelet therapy. high intensity statin once taking PO, LDL > 100 MRI Brain, CTA head, neck noted, echo all reviewed, A1C pending PT/OT/ST VTE prophylaxis, ok for heparin/lovenox once CT reviewed No anticoagulation or antiplatelet therapy until pt is cleared with [address] head Will need continued surveillance with vascular surgery outpatient for ICA stenosis COntinue care for all medical issues as you are doing POC discussed with pt and family at bedside. Subjective Date of service: 07/24/18 Interval history: Pt is about the same as yesterday. Might be moving the right side a little more. Continues with expressive aphasia, might have a little receptive aphasia as well. Objective - Vital Sign Vital Signs - 12hr 07/24/18 07/24/18 07/24/18 05:41 05:51 06:01 Temperature Pulse Rate 79 79 72 Pulse Rate [ Anterior Bilateral Throughout] Pulse Rate [ Left Arm] Respiratory 24 23 21 Rate Respiratory Rate [Anterior Bilateral Throughout] Respiratory Rate [Left Arm] Blood Pressure 159/91 159/91 159/91 Blood Pressure [Left Arm] O2 Sat by Pulse 96 96 97 Oximetry O2 Sat by Pulse Oximetry [Left Arm] 07/24/18 07/24/18 07/24/18 06:03 06:11 06:21 Temperature Pulse Rate 78 73 Pulse Rate [ Anterior Bilateral Throughout] Pulse Rate [ Left Arm] Respiratory 19 21 Rate Respiratory Rate [Anterior Bilateral Throughout] Respiratory Rate [Left Arm] Blood Pressure 159/91 159/91 Blood Pressure 166/86 [Left Arm] O2 Sat by Pulse 96 96 Oximetry O2 Sat by Pulse Oximetry [Left Arm] 07/24/18 07/24/18 07/24/18 06:31 06:41 06:51 Temperature Pulse Rate 74 74 65 Pulse Rate [ Anterior Bilateral Throughout] Pulse Rate [ Left Arm] Respiratory 21 19 19 Rate Respiratory Rate [Anterior Bilateral Throughout] Respiratory Rate [Left Arm] Blood Pressure 166/86 166/86 166/86 Blood Pressure [Left Arm] O2 Sat by Pulse 97 97 96 Oximetry O2 Sat by Pulse Oximetry [Left Arm] 07/24/18 07/24/18 07/24/18 07:00 07:01 07:11 Temperature Pulse Rate 65 76 Pulse Rate [ Anterior Bilateral Throughout] Pulse Rate [ 68 Left Arm] Respiratory 20 20 Rate Respiratory Rate [Anterior Bilateral Throughout] Respiratory 14 Rate [Left Arm] Blood Pressure 166/86 166/86 Blood Pressure 166/85 [Left Arm] O2 Sat by Pulse 97 97 Oximetry O2 Sat by Pulse 97 Oximetry [Left Arm] 07/24/18 07/24/18 07/24/18 07:21 07:31 07:41 Temperature Pulse Rate 65 68 65 Pulse Rate [ Anterior Bilateral Throughout] Pulse Rate [ Left Arm] Respiratory 20 13 19 Rate Respiratory Rate [Anterior Bilateral Throughout] Respiratory Rate [Left Arm] Blood Pressure 166/86 166/86 186/78 Blood Pressure [Left Arm] O2 Sat by Pulse 97 95 98 Oximetry O2 Sat by Pulse Oximetry [Left Arm] 07/24/18 07/24/18 07/24/18 07:47 07:51 08:00 Temperature Pulse Rate 73 Pulse Rate [ 71 77 Anterior Bilateral Throughout] Pulse Rate [ 67 Left Arm] Respiratory 21 20 Rate Respiratory 19 20 Rate [Anterior Bilateral Throughout] Respiratory 19 Rate [Left Arm] Blood Pressure 186/78 Blood Pressure 186/78 [Left Arm] O2 Sat by Pulse 95 98 96 Oximetry O2 Sat by Pulse 95 Oximetry [Left Arm] 07/24/18 07/24/18 07/24/18 08:01 08:07 08:11 Temperature 98.3 F Pulse Rate 72 79 Pulse Rate [ Anterior Bilateral Throughout] Pulse Rate [ Left Arm] Respiratory 20 20 Rate Respiratory Rate [Anterior Bilateral Throughout] Respiratory Rate [Left Arm] Blood Pressure 178/73 178/73 Blood Pressure [Left Arm] O2 Sat by Pulse 95 97 Oximetry O2 Sat by Pulse Oximetry [Left Arm] 07/24/18 07/24/18 07/24/18 08:21 08:31 08:41 Temperature Pulse Rate 82 79 76 Pulse Rate [ Anterior Bilateral Throughout] Pulse Rate [ Left Arm] Respiratory 19 21 16 Rate Respiratory Rate [Anterior Bilateral Throughout] Respiratory Rate [Left Arm] Blood Pressure 178/73 178/73 178/73 Blood Pressure [Left Arm] O2 Sat by Pulse 96 95 96 Oximetry O2 Sat by Pulse Oximetry [Left Arm] 07/24/18 07/24/18 07/24/18 08:51 09:00 09:11 Temperature Pulse Rate 81 78 87 Pulse Rate [ Anterior Bilateral Throughout] Pulse Rate [ 83 Left Arm] Respiratory 20 14 23 Rate Respiratory Rate [Anterior Bilateral Throughout] Respiratory 20 Rate [Left Arm] Blood Pressure 178/73 178/73 170/72 Blood Pressure 170/72 [Left Arm] O2 Sat by Pulse 97 96 96 Oximetry O2 Sat by Pulse 95 Oximetry [Left Arm] 07/24/18 07/24/18 07/24/18 09:21 09:31 09:41 Temperature Pulse Rate 81 81 80 Pulse Rate [ Anterior Bilateral Throughout] Pulse Rate [ Left Arm] Respiratory 18 20 24 Rate Respiratory Rate [Anterior Bilateral Throughout] Respiratory Rate [Left Arm] Blood Pressure 170/72 170/72 170/72 Blood Pressure [Left Arm] O2 Sat by Pulse 97 96 94 Oximetry O2 Sat by Pulse Oximetry [Left Arm] 07/24/18 07/24/18 07/24/18 09:51 10:00 10:01 Temperature Pulse Rate 79 89 87 Pulse Rate [ Anterior Bilateral Throughout] Pulse Rate [ 86 Left Arm] Respiratory 23 25 H Rate Respiratory Rate [Anterior Bilateral Throughout] Respiratory 23 Rate [Left Arm] Blood Pressure 170/72 182/90 Blood Pressure 182/90 [Left Arm] O2 Sat by Pulse 95 93 Oximetry O2 Sat by Pulse 98 Oximetry [Left Arm] 07/24/18 07/24/18 07/24/18 10:11 10:21 10:31 Temperature Pulse Rate 78 82 81 Pulse Rate [ Anterior Bilateral Throughout] Pulse Rate [ Left Arm] Respiratory 24 23 24 Rate Respiratory Rate [Anterior Bilateral Throughout] Respiratory Rate [Left Arm] Blood Pressure 182/90 182/90 182/90 Blood Pressure [Left Arm] O2 Sat by Pulse 95 96 95 Oximetry O2 Sat by Pulse Oximetry [Left Arm] 07/24/18 07/24/18 07/24/18 10:41 10:50 11:00 Temperature Pulse Rate 83 83 Pulse Rate [ Anterior Bilateral Throughout] Pulse Rate [ 84 Left Arm] Respiratory 23 21 Rate Respiratory Rate [Anterior Bilateral Throughout] Respiratory 22 Rate [Left Arm] Blood Pressure 182/90 182/90 Blood Pressure 198/95 [Left Arm] O2 Sat by Pulse 96 96 Oximetry O2 Sat by Pulse 95 Oximetry [Left Arm] 07/24/18 07/24/18 07/24/18 11:01 11:11 11:21 Temperature Pulse Rate 82 86 79 Pulse Rate [ Anterior Bilateral Throughout] Pulse Rate [ Left Arm] Respiratory 21 23 23 Rate Respiratory Rate [Anterior Bilateral Throughout] Respiratory Rate [Left Arm] Blood Pressure 194/94 182/90 182/90 Blood Pressure [Left Arm] O2 Sat by Pulse 94 96 96 Oximetry O2 Sat by Pulse Oximetry [Left Arm] 07/24/18 07/24/18 07/24/18 11:31 11:41 11:51 Temperature Pulse Rate 85 87 82 Pulse Rate [ Anterior Bilateral Throughout] Pulse Rate [ Left Arm] Respiratory 21 26 H 17 Rate Respiratory Rate [Anterior Bilateral Throughout] Respiratory Rate [Left Arm] Blood Pressure 198/95 198/95 198/95 Blood Pressure [Left Arm] O2 Sat by Pulse 95 96 96 Oximetry O2 Sat by Pulse Oximetry [Left Arm] 07/24/18 07/24/18 07/24/18 12:00 12:01 12:11 Temperature Pulse Rate 83 81 Pulse Rate [ Anterior Bilateral Throughout] Pulse Rate [ 81 Left Arm] Respiratory 23 21 Rate Respiratory Rate [Anterior Bilateral Throughout] Respiratory 21 Rate [Left Arm] Blood Pressure 171/83 171/83 Blood Pressure 171/83 [Left Arm] O2 Sat by Pulse 95 97 Oximetry O2 Sat by Pulse 96 Oximetry [Left Arm] 07/24/18 07/24/18 07/24/18 12:13 12:21 13:00 Temperature 98.8 F Pulse Rate 79 Pulse Rate [ Anterior Bilateral Throughout] Pulse Rate [ 93 H Left Arm] Respiratory 21 Rate Respiratory Rate [Anterior Bilateral Throughout] Respiratory 24 Rate [Left Arm] Blood Pressure 160/79 Blood Pressure 160/79 [Left Arm] O2 Sat by Pulse 95 Oximetry O2 Sat by Pulse 92 Oximetry [Left Arm] 07/24/18 07/24/18 07/24/18 16:24 16:27 16:34 Temperature Pulse Rate Pulse Rate [ 90 89 Anterior Bilateral Throughout] Pulse Rate [ Left Arm] Respiratory Rate Respiratory 23 23 Rate [Anterior Bilateral Throughout] Respiratory Rate [Left Arm] Blood Pressure Blood Pressure [Left Arm] O2 Sat by Pulse 97 Oximetry O2 Sat by Pulse Oximetry [Left Arm] - General Apperance Constitutional: comfortable - EENT EENT: PERRL, mucous membranes dry - Respiratory Respiratory: lungs clear - Cardiovascular Cardiovascular: regular rate Extremities: no peripheral edema bilat - Gastrointestinal Gastrointestinal: normoactive bowel sounds - Neurologic Cranial nerve examination: PERRL, EOMI, tongue midline, facial droop Motor examination - right side: 3/5: biceps, triceps, wrist flexion, wrist extension, corporate job titles, hip flexors, knee extensors, 4/5: dorsiflexion, toe extension (EHL), plantarflexion Motor examination - left side: 4/5: biceps, triceps, wrist flexion, wrist extension, [employer] job titles, 5/5: hip flexors, knee extensors, dorsiflexion, toe extension (EHL), plantarflexion Detailed sensory examination: light touch Reflexes: 1+: ankle, bicep, knee, tricep - Laboratory Findings CBC and BMP: 07/23/18 13:20 07/23/18 13:20 Abnormal Lab Findings: Abnormal Labs 07/23/18 07/23/18 07/23/18 13:20 13:20 13:20 RBC 5.62 H Hgb 16.3 H Hct 48.3 H Lymph % (Auto) 6.8 L Lymph # 0.6 L Seg Neutrophils % 88.7 H Seg Neutrophils # 8.1 H APTT 20.1 L Chloride 96.9 L BUN 24 H Glucose 163 H Triglycerides LDL Cholesterol Direct HDL Cholesterol 07/24/18 05:30 RBC Hgb Hct Lymph % (Auto) Lymph # Seg Neutrophils % Seg Neutrophils # APTT Chloride BUN Glucose Triglycerides 277 H LDL Cholesterol Direct 137 H HDL Cholesterol 30 L - Diagnostic Findings Additional findings: MRI official report pending, personally reviewed, left MCA stroke, primarily subcortical echo- ? bubble, good EF no thrombus head CTA- no LVO Neck CTA- 60% L ICA stenosis
--- NOTE | 2018-07-24 19:55 | Cat Scan Report ---
PROCEDURE: CT HEAD/BRAIN WO CON TECHNIQUE: Computerized tomography of the head was performed without contrast material. HISTORY: follow up post TPA rule out hemorrhage FINDINGS: Unenhanced CT of the brain was performed and compared to the prior head CT of July 23 a s well as to the MRI examination of July 24. These images demonstrate no acute intracranial hemorrhage, extra-axial fluid collection, midline shif t or mass effect. The ventricles and basal cisterns are not effaced. The patient's left basal ganglia and left periventricular white matter infarct is now seen on CT. It was not previously apparent on the prior CT examination, but is not significantly changed from the MR I examination measuring approximately 2.5 x 1.9 cm. The very small left cerebellar infarcts also note d on MRI are not seen on CT. There is an old right basilar lacunar infarct. The right mastoid air cells appear clear. There is partial opacification left mastoid air cells. Ther e is an air-fluid level in the left maxillary sinus consistent with acute sinusitis. IMPRESSION: No acute intracranial hemorrhage Subacute left basal ganglia and left periventricular white matter infarct, as depicted on MRI of uma ier in the day This document is electronically signed by Ross Hernandez MD., July 24 2018 07:53:01 PM ET
--- NOTE | 2018-07-24 20:33 | Vascular Lab Report ---
PROCEDURE: VL CAROTID DUPLEX BILAT TECHNIQUE: Duplex Doppler ultrasound of the common, internal and external carotid arteries and the v ertebral arteries was performed bilaterally. Encarnacion scale imaging, velocity spectral waveform analysis, and color flow Doppler were employed. HISTORY: stroke COMPARISONS: None . Note: Measurement of carotid stenosis is based on flow velocity values that correlate with the [place] Symptomatic Carotid Endarterectomy Trial (NASCET) based stenosis criteria using the internal carotid artery diameter as the denominator for stenosis calculation. FINDINGS: RIGHT carotid artery: Velocities: ICA PSV: 115 cm/sec ICA End diastolic: 34 cm/sec CCA PSV: 51 cm/sec IC/CC ratio: 2.2 5 Plaque: Mild heterogeneous plaque noted. RIGHT vertebral artery: Antegrade systolic and diastolic flow LEFT carotid artery: Velocities: ICA PSV: 85 cm/sec ICA End diastolic: 48 cm/sec CCA PSV: 60 cm/sec IC/CC ratio: 1.4. Plaque: Mild degree of calcified plaque is noted. LEFT vertebral artery: Antegrade systolic and diastolic flow IMPRESSION: 1. RIGHT carotid: 50-69% internal carotid artery stenosis. 2. LEFT carotid: <50% internal carotid arterial stenosis. 3. Vertebral arteries: Bilaterally antegrade. This document is electronically signed by Rob Beltrán MD., July 24 2018 08:30:54 PM ET
[2018-07-24] MEDS ORDERED: ASPIRIN PO SCH (22:00)
[2018-07-25] MEDS: PROVENTIL IH PRN (01:49)
[2018-07-25] MEDS ORDERED: LASIX IV STA (02:29)
[2018-07-25] MEDS: ASPIRIN PR SCH ×2 (02:51→09:40)
[2018-07-25 03:11] LABS: BUN/Creatinine Ratio 29; Blood Urea Nitrogen 20 mg/dL (7-17); Calcium 8.1 mg/dL (8.4-10.2); Hemolysis Index 64
[2018-07-25 03:38] LABS: Basophils % (Auto) 0.2 % (0.0-1.8); Eosinophils % (Auto) 0.5 % (0.0-4.3); Hematocrit 49.1 % (30.3-42.9); Hemoglobin 16.7 gm/dl (10.1-14.3); Lymphocytes # (Auto) 0.6 K/mm3 (1.2-5.4); Lymphocytes % (Auto) 6.4 % (13.4-35.0); Mean Corpuscular HGB Conc 34 % (30-34); Mean Corpuscular Volume 86 fl (79-97); Monocytes # (Auto) 0.7 K/mm3 (0.0-0.8); Monocytes % (Auto) 7.8 % (0.0-7.3); Platelet Count 169 K/mm3 (140-440); Red Blood Count 5.68 M/mm3 (3.65-5.03); Red Cell Distribution Width 14.9 % (13.2-15.2)
[2018-07-25] MEDS: DUONEB *Not for PRN Use IH SCH ×3 (07:26→19:40)
--- NOTE | 2018-07-25 09:23 | Event Note ---
Date: 07/25/18 Patient admitted yesterday to ICU for Post TPA therapy. Consult not placed so patient did not appear on my list but we did round on her yesterday. Called last evening about respiratory distress, no desaturations. Patient has diastolic dysfunction on echo and was hypertensive yesterday. Gave lasix IV 20 last night and responded well. Will give an additional 40 today. Patient is stable for transfer out of unit. If any further pulmonary issues arise, please place consult and will be happy to see patient.
[2018-07-25] MEDS ORDERED: LASIX IV ONE (10:00)
--- NOTE | 2018-07-25 12:11 | Progress Note ---
Assessment and Plan Assessment and plan: Patient is a 68 yo woman with a history of Obesity, HTN, COPD, and CHF who presented with acute onset of right sided weakness, treated with Alteplase -Acute Ischemic Stroke with Right hemiparesis and expressive aphasia s/p tPA: stroke protocol but hold oral statin due to speech/swallow impairment, use rectal ASA unless passes swallow evaluation, Neurology is following -Accelerated HTN due to above: permissive for now, Neurology is following -Dyslipidemia: liptor -Chronic Heart failure: strict I/O, daily weight, afterload reduction, -COPD (chronic obstructive pulmonary disease): supplemental oxygen as needed, nebulizer therapy prn repeat CT head passed bedside swallow today. start diet transfer out of ICU History Interval history: Patient was seen and examined. Follow-up on current diagnosis of CVA. Overnight uneventful. Patient denies any chest pain, shortness breath, nausea/vomiting or severe headaches. Imaging, nursing note, chart, labs and old chart reviewed. Discussed with patient. Hospitalist Physical - Physical exam Narrative exam: Gen: WDWN, NAD, Awake, Alert, appears Orientated HEENT: NCAT, EOMI, PERRL, OP Clear Neck: supple, no adenopathy, no thyromegaly, no JVD CVS/Heart: RRR, normal S1S2, pulses present bilaterally Chest/Lungs: CTA B, Symmetrical chest expansion, good air entry bilaterally GI/Abdomen: soft, NTND, good bowel sounds, no guarding or rebound /Bladder: no suprapubic tenderness, no CVA or paraspinal tenderness Extermity/Skin: no c/c/e, no obvious rash MSK: FROM x 4, but weaker on right ext Neuro: CN 2-12 grossly intact except speech, right sided hemiparesis, upper and lower Psych: calm - Constitutional Vitals: Temp Pulse Resp BP Pulse Ox 98.8 F 112 H 21 161/92 95 07/25/18 03:08 07/25/18 10:01 07/25/18 10:01 07/25/18 10:01 07/25/18 10:01 General appearance: Present: obese Results - Labs CBC & Chem 7: 07/25/18 02:00 07/25/18 02:00 Labs: Laboratory Last Values WBC 9.5 K/mm3 (4.5-11.0) 07/25/18 02:00 RBC 5.68 M/mm3 (3.65-5.03) H 07/25/18 02:00 Hgb 16.7 gm/dl (10.1-14.3) H 07/25/18 02:00 Hct 49.1 % (30.3-42.9) H 07/25/18 02:00 MCV 86 fl (79-97) 07/25/18 02:00 MCH 29 pg (28-32) 07/25/18 02:00 MCHC 34 % (30-34) 07/25/18 02:00 RDW 14.9 % (13.2-15.2) 07/25/18 02:00 Plt Count 169 K/mm3 (140-440) 07/25/18 02:00 Lymph % (Auto) 6.4 % (13.4-35.0) L 07/25/18 02:00 [place] % (Auto) 7.8 % (0.0-7.3) H 07/25/18 02:00 Eos % (Auto) 0.5 % (0.0-4.3) 07/25/18 02:00 Baso % (Auto) 0.2 % (0.0-1.8) 07/25/18 02:00 Lymph # 0.6 K/mm3 (1.2-5.4) L 07/25/18 02:00 [place] # 0.7 K/mm3 (0.0-0.8) 07/25/18 02:00 Eos # 0.0 K/mm3 (0.0-0.4) 07/25/18 02:00 Baso # 0.0 K/mm3 (0.0-0.1) 07/25/18 02:00 Seg Neutrophils % 85.1 % (40.0-70.0) H 07/25/18 02:00 Seg Neutrophils # 8.1 K/mm3 (1.8-7.7) H 07/25/18 02:00 PT 13.4 Sec. (12.2-14.9) 07/23/18 13:20 INR 0.96 (0.87-1.13) 07/23/18 13:20 APTT 20.1 Sec. (24.2-36.6) L 07/23/18 13:20 Thrombin Time 19.6 Sec. (15.1-19.6) 07/23/18 13:20 POC ABG pH 7.394 (7.35-7.45) 07/25/18 02:26 POC ABG pCO2 46.6 (35-45) H 07/25/18 02:26 POC ABG pO2 90 (80-105) 07/25/18 02:26 POC ABG HCO3 28.5 07/25/18 02:26 POC ABG Total CO2 30 07/25/18 02:26 POC ABG O2 Sat 97 07/25/18 02:26 POC ABG Base Excess 4 07/25/18 02:26 FiO2 35 % 07/25/18 02:26 Sodium 145 mmol/L (137-145) 07/25/18 02:00 Potassium 3.7 mmol/L (3.6-5.0) 07/25/18 02:00 Chloride 105.0 mmol/L (98-107) 07/25/18 02:00 Carbon Dioxide 27 mmol/L (22-30) 07/25/18 02:00 Anion Gap 17 mmol/L 07/25/18 02:00 BUN 20 mg/dL (7-17) H 07/25/18 02:00 Creatinine 0.7 mg/dL (0.7-1.2) 07/25/18 02:00 Estimated GFR > 60 ml/min 07/25/18 02:00 BUN/Creatinine Ratio 29 % 07/25/18 02:00 Glucose 128 mg/dL (65-100) H 07/25/18 02:00 Hemoglobin A1c 6.7 % (4-6) H 07/24/18 18:00 Calcium 8.1 mg/dL (8.4-10.2) L 07/25/18 02:00 Total Bilirubin 0.60 mg/dL (0.1-1.2) 07/23/18 13:20 AST 16 units/L (5-40) 07/23/18 13:20 ALT 14 units/L (7-56) 07/23/18 13:20 Alkaline Phosphatase 120 units/L (35-129) 07/23/18 13:20 Total Creatine Kinase 69 units/L (30-135) 07/23/18 13:20 CK-MB (CK-2) 1.9 ng/mL (0.0-4.0) 07/23/18 13:20 CK-MB (CK-2) Rel Index 2.7 (0-4) 07/23/18 13:20 Troponin T < 0.010 ng/mL (0.00-0.029) 07/23/18 13:20 Total Protein 7.0 g/dL (6.3-8.2) 07/23/18 13:20 Albumin 4.4 g/dL (3.9-5) 07/23/18 13:20 Albumin/Globulin Ratio 1.7 % 07/23/18 13:20 Triglycerides 277 mg/dL (2-149) H 07/24/18 05:30 Cholesterol 193 mg/dL (50-199) 07/24/18 05:30 LDL Cholesterol Direct 137 mg/dL (50-130) H 07/24/18 05:30 HDL Cholesterol 30 mg/dL (40-59) L 07/24/18 05:30 Cholesterol/HDL Ratio 6.43 % 07/24/18 05:30 Urine Color Straw (Yellow) 07/23/18 15:41 Urine Turbidity Clear (Clear) 07/23/18 15:41 Urine pH 7.0 (5.0-7.0) 07/23/18 15:41 Ur Specific [place] 1.018 (1.003-1.030) 07/23/18 15:41 Urine Protein <15 mg/dl mg/dL (Negative) 07/23/18 15:41 Urine Glucose (UA) Neg mg/dL (Negative) 07/23/18 15:41 Urine Ketones Neg mg/dL (Negative) 07/23/18 15:41 Urine Blood Neg (Negative) 07/23/18 15:41 Urine Nitrite Neg (Negative) 07/23/18 15:41 Urine Bilirubin Neg (Negative) 07/23/18 15:41 Urine Urobilinogen < 2.0 mg/dL (<2.0) 07/23/18 15:41 Ur Leukocyte Esterase Neg (Negative) 07/23/18 15:41 Urine WBC (Auto) < 1.0 /HPF (0.0-6.0) 07/23/18 15:41 Urine RBC (Auto) 1.0 /HPF (0.0-6.0) 07/23/18 15:41 Urine Mucus Few /HPF 07/23/18 15:41 Urine Opiates Screen Presumptive negative 07/23/18 15:41 Urine Methadone Screen Presumptive negative 07/23/18 15:41 Ur Barbiturates Screen Presumptive negative 07/23/18 15:41 Ur Phencyclidine Scrn Presumptive negative 07/23/18 15:41 Ur Amphetamines Screen Presumptive negative 07/23/18 15:41 U Benzodiazepines Scrn Presumptive negative 07/23/18 15:41 Urine Cocaine Screen Presumptive negative 07/23/18 15:41 U Marijuana (THC) Screen Presumptive negative 07/23/18 15:41 Drugs of Abuse Note Disclamer 07/23/18 15:41
--- NOTE | 2018-07-25 23:20 | Cat Scan Report ---
CT HEAD/BRAIN WO CON CLINICAL INDICATION: Female, 68 years of age. cva s/p tpa COMPARISON: CT of the head and MRI of the brain from yesterday. TECHNIQUE: Contiguous axial images were obtained from the vertex through the skull base.This CT exam was perform ed using one or more of the following dose reduction techniques: automated exposure control, adjustme nt of the mA and/or kV according to patient size, or use of iterative reconstruction technique. FINDINGS: Persistent focal area of low attenuation left basal ganglia corresponding to patient's acute or early subacute infarct. No acute intracranial hemorrhage. Stable configuration of the ventricular system a nd mild chronic small vessel ischemic disease. Remainder of the liu-white differentiation maintained . Prior cataract surgery. Calvarium is grossly intact. Small air-fluid level left maxillary sinus. Mastoid air cells are clear. IMPRESSION: 1. Stable appearance of subacute left basal ganglia infarct. No acute intracranial hemorrhage. 2. Stable mild chronic small vessel ischemic disease. This document is electronically signed by Alton Arshad DO., July 25 2018 07:54:14 PM ET
[2018-07-26] MEDS: PROVENTIL IH PRN (03:13)
[2018-07-26] MEDS ORDERED: SOLU-Medrol IV ONE (03:18)
[2018-07-26] MEDS: DUONEB *Not for PRN Use IH SCH ×5 (06:29→19:41)
--- NOTE | 2018-07-26 11:13 | Progress Note ---
Assessment and Plan Assessment and plan: Patient is a 68 yo woman with a history of Obesity, HTN, COPD, and CHF who presented with acute onset of right sided weakness, treated with Alteplase -Acute Ischemic Stroke with Right hemiparesis and expressive aphasia s/p tPA: stroke protocol but hold oral statin due to speech/swallow impairment, use rectal ASA unless passes swallow evaluation, Neurology is following -Accelerated HTN due to above: permissive for now, Neurology is following -Dyslipidemia: liptor -Chronic Heart failure: strict I/O, daily weight, afterload reduction, -COPD (chronic obstructive pulmonary disease): supplemental oxygen as needed, nebulizer therapy prn repeat CT head passed bedside swallow today. start diet transferred out of ICU History Interval history: Patient was seen and examined. Follow-up on current diagnosis of CVA. Overnight uneventful. Patient denies any chest pain, shortness breath, nausea/vomiting or severe headaches. Imaging, nursing note, chart, labs and old chart reviewed. Discussed with patient. Hospitalist Physical - Physical exam Narrative exam: Gen: WDWN, NAD, Awake, Alert, appears Orientated HEENT: NCAT, EOMI, PERRL, OP Clear Neck: supple, no adenopathy, no thyromegaly, no JVD CVS/Heart: RRR, normal S1S2, pulses present bilaterally Chest/Lungs: CTA B, Symmetrical chest expansion, good air entry bilaterally GI/Abdomen: soft, NTND, good bowel sounds, no guarding or rebound /Bladder: no suprapubic tenderness, no CVA or paraspinal tenderness Extermity/Skin: no c/c/e, no obvious rash MSK: FROM x 4, but weaker on right ext Neuro: CN 2-12 grossly intact except speech, right sided hemiparesis, upper and lower Psych: calm - Constitutional Vitals: Temp Pulse Resp BP Pulse Ox 97.1 F L 102 H 22 134/89 92 07/26/18 07:21 07/26/18 07:32 07/26/18 07:40 07/26/18 07:21 07/26/18 07:32 General appearance: Present: obese Results - Labs CBC & Chem 7: 07/25/18 02:00 07/25/18 02:00 Labs: Laboratory Last Values WBC 9.5 K/mm3 (4.5-11.0) 07/25/18 02:00 RBC 5.68 M/mm3 (3.65-5.03) H 07/25/18 02:00 Hgb 16.7 gm/dl (10.1-14.3) H 07/25/18 02:00 Hct 49.1 % (30.3-42.9) H 07/25/18 02:00 MCV 86 fl (79-97) 07/25/18 02:00 MCH 29 pg (28-32) 07/25/18 02:00 MCHC 34 % (30-34) 07/25/18 02:00 RDW 14.9 % (13.2-15.2) 07/25/18 02:00 Plt Count 169 K/mm3 (140-440) 07/25/18 02:00 Lymph % (Auto) 6.4 % (13.4-35.0) L 07/25/18 02:00 [place] % (Auto) 7.8 % (0.0-7.3) H 07/25/18 02:00 Eos % (Auto) 0.5 % (0.0-4.3) 07/25/18 02:00 Baso % (Auto) 0.2 % (0.0-1.8) 07/25/18 02:00 Lymph # 0.6 K/mm3 (1.2-5.4) L 07/25/18 02:00 [place] # 0.7 K/mm3 (0.0-0.8) 07/25/18 02:00 Eos # 0.0 K/mm3 (0.0-0.4) 07/25/18 02:00 Baso # 0.0 K/mm3 (0.0-0.1) 07/25/18 02:00 Seg Neutrophils % 85.1 % (40.0-70.0) H 07/25/18 02:00 Seg Neutrophils # 8.1 K/mm3 (1.8-7.7) H 07/25/18 02:00 PT 13.4 Sec. (12.2-14.9) 07/23/18 13:20 INR 0.96 (0.87-1.13) 07/23/18 13:20 APTT 20.1 Sec. (24.2-36.6) L 07/23/18 13:20 Thrombin Time 19.6 Sec. (15.1-19.6) 07/23/18 13:20 POC ABG pH 7.440 (7.35-7.45) 07/26/18 03:39 POC ABG pCO2 42.0 (35-45) 07/26/18 03:39 POC ABG pO2 73 (80-105) L 07/26/18 03:39 POC ABG HCO3 28.5 07/26/18 03:39 POC ABG Total CO2 30 07/26/18 03:39 POC ABG O2 Sat 95 07/26/18 03:39 POC ABG Base Excess 4 07/26/18 03:39 FiO2 40 % 07/26/18 03:39 Sodium 145 mmol/L (137-145) 07/25/18 02:00 Potassium 3.7 mmol/L (3.6-5.0) 07/25/18 02:00 Chloride 105.0 mmol/L (98-107) 07/25/18 02:00 Carbon Dioxide 27 mmol/L (22-30) 07/25/18 02:00 Anion Gap 17 mmol/L 07/25/18 02:00 BUN 20 mg/dL (7-17) H 07/25/18 02:00 Creatinine 0.7 mg/dL (0.7-1.2) 07/25/18 02:00 Estimated GFR > 60 ml/min 07/25/18 02:00 BUN/Creatinine Ratio 29 % 07/25/18 02:00 Glucose 128 mg/dL (65-100) H 07/25/18 02:00 Hemoglobin A1c 6.7 % (4-6) H 07/24/18 18:00 Calcium 8.1 mg/dL (8.4-10.2) L 07/25/18 02:00 Total Bilirubin 0.60 mg/dL (0.1-1.2) 07/23/18 13:20 AST 16 units/L (5-40) 07/23/18 13:20 ALT 14 units/L (7-56) 07/23/18 13:20 Alkaline Phosphatase 120 units/L (35-129) 07/23/18 13:20 Total Creatine Kinase 69 units/L (30-135) 07/23/18 13:20 CK-MB (CK-2) 1.9 ng/mL (0.0-4.0) 07/23/18 13:20 CK-MB (CK-2) Rel Index 2.7 (0-4) 07/23/18 13:20 Troponin T < 0.010 ng/mL (0.00-0.029) 07/23/18 13:20 Total Protein 7.0 g/dL (6.3-8.2) 07/23/18 13:20 Albumin 4.4 g/dL (3.9-5) 07/23/18 13:20 Albumin/Globulin Ratio 1.7 % 07/23/18 13:20 Triglycerides 277 mg/dL (2-149) H 07/24/18 05:30 Cholesterol 193 mg/dL (50-199) 07/24/18 05:30 LDL Cholesterol Direct 137 mg/dL (50-130) H 07/24/18 05:30 HDL Cholesterol 30 mg/dL (40-59) L 07/24/18 05:30 Cholesterol/HDL Ratio 6.43 % 07/24/18 05:30 Urine Color Straw (Yellow) 07/23/18 15:41 Urine Turbidity Clear (Clear) 07/23/18 15:41 Urine pH 7.0 (5.0-7.0) 07/23/18 15:41 Ur Specific [place] 1.018 (1.003-1.030) 07/23/18 15:41 Urine Protein <15 mg/dl mg/dL (Negative) 07/23/18 15:41 Urine Glucose (UA) Neg mg/dL (Negative) 07/23/18 15:41 Urine Ketones Neg mg/dL (Negative) 07/23/18 15:41 Urine Blood Neg (Negative) 07/23/18 15:41 Urine Nitrite Neg (Negative) 07/23/18 15:41 Urine Bilirubin Neg (Negative) 07/23/18 15:41 Urine Urobilinogen < 2.0 mg/dL (<2.0) 07/23/18 15:41 Ur Leukocyte Esterase Neg (Negative) 07/23/18 15:41 Urine WBC (Auto) < 1.0 /HPF (0.0-6.0) 07/23/18 15:41 Urine RBC (Auto) 1.0 /HPF (0.0-6.0) 07/23/18 15:41 Urine Mucus Few /HPF 07/23/18 15:41 Urine Opiates Screen Presumptive negative 07/23/18 15:41 Urine Methadone Screen Presumptive negative 07/23/18 15:41 Ur Barbiturates Screen Presumptive negative 07/23/18 15:41 Ur Phencyclidine Scrn Presumptive negative 07/23/18 15:41 Ur Amphetamines Screen Presumptive negative 07/23/18 15:41 U Benzodiazepines Scrn Presumptive negative 07/23/18 15:41 Urine Cocaine Screen Presumptive negative 07/23/18 15:41 U Marijuana (THC) Screen Presumptive negative 07/23/18 15:41 Drugs of Abuse Note Disclamer 07/23/18 15:41
[2018-07-26] MEDS: DULCOLAX PR PRN (15:48)
[2018-07-27] MEDS: DUONEB *Not for PRN Use IH SCH ×4 (03:06→19:45)
[2018-07-27] MEDS ORDERED: ASPIRIN PO ONE (10:38)
--- NOTE | 2018-07-27 14:07 | Magnetic Resonance Report ---
PROCEDURE: MR BRAIN WO CON TECHNIQUE: Magnetic resonance imaging of the brain was performed without contrast material. HISTORY: stroke FINDINGS: MRI of the brain was performed using sagittal T1, axial diffusion, axial T2, axial FLAIR, a xial T2*gradient echo, coronal FLAIR and axial T1-weighted images. These images demonstrate an acute infarct of the left periventricular white matter extending into the left basal ganglia, B1000 diffusion and ADC images 16-21, 2.6 x 1.7 cm Additionally, there are 4 small foci of increased B1000 diffusion, low ADC signal in the left cerebel lum, images 7-8, each approximately 0.3 cm consistent with acute infarcts. There is normal liu-white differentiation. There are moderate chronic appearing small vessel ischemi c white matter changes in the subcortical and periventricular white matter. There are normal flow voids in the vertebral arteries, the basilar artery and both internal carotid a rteries. There is partial opacification of left mastoid air cells. The right mastoid air cells appear clear. T here is an air-fluid level left maxillary sinus consistent with sinusitis. IMPRESSION: Acute left basal ganglia/left periventricular white matter infarct Small acute infarcts in left cerebellum This document is electronically signed by Ross Hernandez MD., July 24 2018 05:08:33 PM ET
--- NOTE | 2018-07-27 14:08 | Magnetic Resonance Report ---
PROCEDURE: MR MRA/MRV HEAD WO CON HISTORY: stroke FINDINGS: MRA of the intracranial arterial vasculature was performed and data was reformatted into multiple pro jections. These images demonstrate, in the posterior circulation, that both vertebral arteries are small. The b asilar artery is small but patent. Both posterior cerebral arteries appear patent. In the anterior circulation, there is a moderate stenosis of the distal aspect of the M1 segment of t he right middle cerebral artery. The left middle cerebral artery appears patent. Both anterior cerebr al arteries appear patent. No aneurysm is seen. IMPRESSION: The intracranial arterial vasculature appears patent. The vertebral arteries and basilar artery all appear small. There is a moderate stenosis of the distal M1 portion of the right middle ce rebral artery This document is electronically signed by Ross Hernandez MD., July 24 2018 05:11:05 PM ET
--- NOTE | 2018-07-27 14:27 | Progress Note ---
Assessment and Plan Assessment and plan: Patient is a 68 yo woman with a history of Obesity, HTN, COPD, and CHF who presented with acute onset of right sided weakness, treated with Alteplase -Acute Ischemic Stroke with Right hemiparesis and expressive aphasia s/p tPA: stroke protocol but hold oral statin due to speech/swallow impairment, use rectal ASA unless passes swallow evaluation, Neurology is following -Accelerated HTN due to above: permissive for now, Neurology is following -Dyslipidemia: liptor -Chronic Heart failure: strict I/O, daily weight, afterload reduction, -COPD (chronic obstructive pulmonary disease): supplemental oxygen as needed, nebulizer therapy prn spoke with angélica Perez at bedside passed bedside swallow today. start diet History Interval history: Patient was seen and examined. Follow-up on current diagnosis of CVA. Overnight uneventful. Patient denies any chest pain, shortness breath, nausea/vomiting or severe headaches. Imaging, nursing note, chart, labs and old chart reviewed. Discussed with patient. Hospitalist Physical - Physical exam Narrative exam: Gen: WDWN, NAD, Awake, Alert, appears Orientated HEENT: NCAT, EOMI, PERRL, OP Clear Neck: supple, no adenopathy, no thyromegaly, no JVD CVS/Heart: RRR, normal S1S2, pulses present bilaterally Chest/Lungs: CTA B, Symmetrical chest expansion, good air entry bilaterally GI/Abdomen: soft, NTND, good bowel sounds, no guarding or rebound /Bladder: no suprapubic tenderness, no CVA or paraspinal tenderness Extermity/Skin: no c/c/e, no obvious rash MSK: FROM x 4, but weaker on right ext Neuro: CN 2-12 grossly intact except speech, right sided hemiparesis, upper and lower Psych: calm - Constitutional Vitals: Temp Pulse Resp BP Pulse Ox 97.7 F 103 H 22 122/70 91 07/27/18 08:04 07/27/18 13:38 07/27/18 13:38 07/27/18 08:04 07/27/18 08:04 General appearance: Present: obese Results - Labs CBC & Chem 7: 07/25/18 02:00 07/25/18 02:00 Labs: Laboratory Last Values WBC 9.5 K/mm3 (4.5-11.0) 07/25/18 02:00 RBC 5.68 M/mm3 (3.65-5.03) H 07/25/18 02:00 Hgb 16.7 gm/dl (10.1-14.3) H 07/25/18 02:00 Hct 49.1 % (30.3-42.9) H 07/25/18 02:00 MCV 86 fl (79-97) 07/25/18 02:00 MCH 29 pg (28-32) 07/25/18 02:00 MCHC 34 % (30-34) 07/25/18 02:00 RDW 14.9 % (13.2-15.2) 07/25/18 02:00 Plt Count 169 K/mm3 (140-440) 07/25/18 02:00 Lymph % (Auto) 6.4 % (13.4-35.0) L 07/25/18 02:00 [place] % (Auto) 7.8 % (0.0-7.3) H 07/25/18 02:00 Eos % (Auto) 0.5 % (0.0-4.3) 07/25/18 02:00 Baso % (Auto) 0.2 % (0.0-1.8) 07/25/18 02:00 Lymph # 0.6 K/mm3 (1.2-5.4) L 07/25/18 02:00 [place] # 0.7 K/mm3 (0.0-0.8) 07/25/18 02:00 Eos # 0.0 K/mm3 (0.0-0.4) 07/25/18 02:00 Baso # 0.0 K/mm3 (0.0-0.1) 07/25/18 02:00 Seg Neutrophils % 85.1 % (40.0-70.0) H 07/25/18 02:00 Seg Neutrophils # 8.1 K/mm3 (1.8-7.7) H 07/25/18 02:00 PT 13.4 Sec. (12.2-14.9) 07/23/18 13:20 INR 0.96 (0.87-1.13) 07/23/18 13:20 APTT 20.1 Sec. (24.2-36.6) L 07/23/18 13:20 Thrombin Time 19.6 Sec. (15.1-19.6) 07/23/18 13:20 POC ABG pH 7.440 (7.35-7.45) 07/26/18 03:39 POC ABG pCO2 42.0 (35-45) 07/26/18 03:39 POC ABG pO2 73 (80-105) L 07/26/18 03:39 POC ABG HCO3 28.5 07/26/18 03:39 POC ABG Total CO2 30 07/26/18 03:39 POC ABG O2 Sat 95 07/26/18 03:39 POC ABG Base Excess 4 07/26/18 03:39 FiO2 40 % 07/26/18 03:39 Sodium 145 mmol/L (137-145) 07/25/18 02:00 Potassium 3.7 mmol/L (3.6-5.0) 07/25/18 02:00 Chloride 105.0 mmol/L (98-107) 07/25/18 02:00 Carbon Dioxide 27 mmol/L (22-30) 07/25/18 02:00 Anion Gap 17 mmol/L 07/25/18 02:00 BUN 20 mg/dL (7-17) H 07/25/18 02:00 Creatinine 0.7 mg/dL (0.7-1.2) 07/25/18 02:00 Estimated GFR > 60 ml/min 07/25/18 02:00 BUN/Creatinine Ratio 29 % 07/25/18 02:00 Glucose 128 mg/dL (65-100) H 07/25/18 02:00 Hemoglobin A1c 6.7 % (4-6) H 07/24/18 18:00 Calcium 8.1 mg/dL (8.4-10.2) L 07/25/18 02:00 Total Bilirubin 0.60 mg/dL (0.1-1.2) 07/23/18 13:20 AST 16 units/L (5-40) 07/23/18 13:20 ALT 14 units/L (7-56) 07/23/18 13:20 Alkaline Phosphatase 120 units/L (35-129) 07/23/18 13:20 Total Creatine Kinase 69 units/L (30-135) 07/23/18 13:20 CK-MB (CK-2) 1.9 ng/mL (0.0-4.0) 07/23/18 13:20 CK-MB (CK-2) Rel Index 2.7 (0-4) 07/23/18 13:20 Troponin T < 0.010 ng/mL (0.00-0.029) 07/23/18 13:20 Total Protein 7.0 g/dL (6.3-8.2) 07/23/18 13:20 Albumin 4.4 g/dL (3.9-5) 07/23/18 13:20 Albumin/Globulin Ratio 1.7 % 07/23/18 13:20 Triglycerides 277 mg/dL (2-149) H 07/24/18 05:30 Cholesterol 193 mg/dL (50-199) 07/24/18 05:30 LDL Cholesterol Direct 137 mg/dL (50-130) H 07/24/18 05:30 HDL Cholesterol 30 mg/dL (40-59) L 07/24/18 05:30 Cholesterol/HDL Ratio 6.43 % 07/24/18 05:30 Urine Color Straw (Yellow) 07/23/18 15:41 Urine Turbidity Clear (Clear) 07/23/18 15:41 Urine pH 7.0 (5.0-7.0) 07/23/18 15:41 Ur Specific [place] 1.018 (1.003-1.030) 07/23/18 15:41 Urine Protein <15 mg/dl mg/dL (Negative) 07/23/18 15:41 Urine Glucose (UA) Neg mg/dL (Negative) 07/23/18 15:41 Urine Ketones Neg mg/dL (Negative) 07/23/18 15:41 Urine Blood Neg (Negative) 07/23/18 15:41 Urine Nitrite Neg (Negative) 07/23/18 15:41 Urine Bilirubin Neg (Negative) 07/23/18 15:41 Urine Urobilinogen < 2.0 mg/dL (<2.0) 07/23/18 15:41 Ur Leukocyte Esterase Neg (Negative) 07/23/18 15:41 Urine WBC (Auto) < 1.0 /HPF (0.0-6.0) 07/23/18 15:41 Urine RBC (Auto) 1.0 /HPF (0.0-6.0) 07/23/18 15:41 Urine Mucus Few /HPF 07/23/18 15:41 Urine Opiates Screen Presumptive negative 07/23/18 15:41 Urine Methadone Screen Presumptive negative 07/23/18 15:41 Ur Barbiturates Screen Presumptive negative 07/23/18 15:41 Ur Phencyclidine Scrn Presumptive negative 07/23/18 15:41 Ur Amphetamines Screen Presumptive negative 07/23/18 15:41 U Benzodiazepines Scrn Presumptive negative 07/23/18 15:41 Urine Cocaine Screen Presumptive negative 07/23/18 15:41 U Marijuana (THC) Screen Presumptive negative 07/23/18 15:41 Drugs of Abuse Note Disclamer 07/23/18 15:41
[2018-07-27] MEDS: DULCOLAX PR PRN (20:35)
[2018-07-28] MEDS: DUONEB *Not for PRN Use IH SCH ×4 (02:11→20:19)
[2018-07-28] MEDS: ASPIRIN PO SCH (10:59)
--- NOTE | 2018-07-28 13:28 | Progress Note ---
Assessment and Plan Assessment and plan: Patient is a 68 yo woman with a history of Obesity, HTN, COPD, and CHF who presented with acute onset of right sided weakness, treated with Alteplase -Acute Ischemic Stroke with Right hemiparesis and expressive aphasia s/p tPA: stroke protocol but hold oral statin due to speech/swallow impairment, use rectal ASA unless passes swallow evaluation, Neurology is following -Accelerated HTN due to above: permissive for now, Neurology is following -Dyslipidemia: liptor -Chronic Heart failure: strict I/O, daily weight, afterload reduction, -COPD (chronic obstructive pulmonary disease): supplemental oxygen as needed, nebulizer therapy prn spoke with angélica Perez at bedside yesterday passed bedside swallow today, start diet placement pending History Interval history: Patient was seen and examined. Follow-up on current diagnosis of CVA. Overnight uneventful. Patient denies any chest pain, shortness breath, nausea/vomiting or severe headaches. Imaging, nursing note, chart, labs and old chart reviewed. Discussed with patient. Hospitalist Physical - Physical exam Narrative exam: Gen: WDWN, NAD, Awake, Alert, appears Orientated HEENT: NCAT, EOMI, PERRL, OP Clear Neck: supple, no adenopathy, no thyromegaly, no JVD CVS/Heart: RRR, normal S1S2, pulses present bilaterally Chest/Lungs: CTA B, Symmetrical chest expansion, good air entry bilaterally GI/Abdomen: soft, NTND, good bowel sounds, no guarding or rebound /Bladder: no suprapubic tenderness, no CVA or paraspinal tenderness Extermity/Skin: no c/c/e, no obvious rash MSK: FROM x 4, but weaker on right ext Neuro: CN 2-12 grossly intact except speech, right sided hemiparesis, upper and lower Psych: calm - Constitutional Vitals: Temp Pulse Resp BP Pulse Ox 97.5 F L 97 H 18 123/65 97 07/27/18 13:19 07/28/18 09:42 07/28/18 09:42 07/28/18 02:00 07/28/18 09:31 General appearance: Present: obese Results - Labs CBC & Chem 7: 07/25/18 02:00 07/25/18 02:00 Labs: Laboratory Last Values WBC 9.5 K/mm3 (4.5-11.0) 07/25/18 02:00 RBC 5.68 M/mm3 (3.65-5.03) H 07/25/18 02:00 Hgb 16.7 gm/dl (10.1-14.3) H 07/25/18 02:00 Hct 49.1 % (30.3-42.9) H 07/25/18 02:00 MCV 86 fl (79-97) 07/25/18 02:00 MCH 29 pg (28-32) 07/25/18 02:00 MCHC 34 % (30-34) 07/25/18 02:00 RDW 14.9 % (13.2-15.2) 07/25/18 02:00 Plt Count 169 K/mm3 (140-440) 07/25/18 02:00 Lymph % (Auto) 6.4 % (13.4-35.0) L 07/25/18 02:00 [place] % (Auto) 7.8 % (0.0-7.3) H 07/25/18 02:00 Eos % (Auto) 0.5 % (0.0-4.3) 07/25/18 02:00 Baso % (Auto) 0.2 % (0.0-1.8) 07/25/18 02:00 Lymph # 0.6 K/mm3 (1.2-5.4) L 07/25/18 02:00 [place] # 0.7 K/mm3 (0.0-0.8) 07/25/18 02:00 Eos # 0.0 K/mm3 (0.0-0.4) 07/25/18 02:00 Baso # 0.0 K/mm3 (0.0-0.1) 07/25/18 02:00 Seg Neutrophils % 85.1 % (40.0-70.0) H 07/25/18 02:00 Seg Neutrophils # 8.1 K/mm3 (1.8-7.7) H 07/25/18 02:00 PT 13.4 Sec. (12.2-14.9) 07/23/18 13:20 INR 0.96 (0.87-1.13) 07/23/18 13:20 APTT 20.1 Sec. (24.2-36.6) L 07/23/18 13:20 Thrombin Time 19.6 Sec. (15.1-19.6) 07/23/18 13:20 POC ABG pH 7.440 (7.35-7.45) 07/26/18 03:39 POC ABG pCO2 42.0 (35-45) 07/26/18 03:39 POC ABG pO2 73 (80-105) L 07/26/18 03:39 POC ABG HCO3 28.5 07/26/18 03:39 POC ABG Total CO2 30 07/26/18 03:39 POC ABG O2 Sat 95 07/26/18 03:39 POC ABG Base Excess 4 07/26/18 03:39 FiO2 40 % 07/26/18 03:39 Sodium 145 mmol/L (137-145) 07/25/18 02:00 Potassium 3.7 mmol/L (3.6-5.0) 07/25/18 02:00 Chloride 105.0 mmol/L (98-107) 07/25/18 02:00 Carbon Dioxide 27 mmol/L (22-30) 07/25/18 02:00 Anion Gap 17 mmol/L 07/25/18 02:00 BUN 20 mg/dL (7-17) H 07/25/18 02:00 Creatinine 0.7 mg/dL (0.7-1.2) 07/25/18 02:00 Estimated GFR > 60 ml/min 07/25/18 02:00 BUN/Creatinine Ratio 29 % 07/25/18 02:00 Glucose 128 mg/dL (65-100) H 07/25/18 02:00 Hemoglobin A1c 6.7 % (4-6) H 07/24/18 18:00 Calcium 8.1 mg/dL (8.4-10.2) L 07/25/18 02:00 Total Bilirubin 0.60 mg/dL (0.1-1.2) 07/23/18 13:20 AST 16 units/L (5-40) 07/23/18 13:20 ALT 14 units/L (7-56) 07/23/18 13:20 Alkaline Phosphatase 120 units/L (35-129) 07/23/18 13:20 Total Creatine Kinase 69 units/L (30-135) 07/23/18 13:20 CK-MB (CK-2) 1.9 ng/mL (0.0-4.0) 07/23/18 13:20 CK-MB (CK-2) Rel Index 2.7 (0-4) 07/23/18 13:20 Troponin T < 0.010 ng/mL (0.00-0.029) 07/23/18 13:20 Total Protein 7.0 g/dL (6.3-8.2) 07/23/18 13:20 Albumin 4.4 g/dL (3.9-5) 07/23/18 13:20 Albumin/Globulin Ratio 1.7 % 07/23/18 13:20 Triglycerides 277 mg/dL (2-149) H 07/24/18 05:30 Cholesterol 193 mg/dL (50-199) 07/24/18 05:30 LDL Cholesterol Direct 137 mg/dL (50-130) H 07/24/18 05:30 HDL Cholesterol 30 mg/dL (40-59) L 07/24/18 05:30 Cholesterol/HDL Ratio 6.43 % 07/24/18 05:30 Urine Color Straw (Yellow) 07/23/18 15:41 Urine Turbidity Clear (Clear) 07/23/18 15:41 Urine pH 7.0 (5.0-7.0) 07/23/18 15:41 Ur Specific [place] 1.018 (1.003-1.030) 07/23/18 15:41 Urine Protein <15 mg/dl mg/dL (Negative) 07/23/18 15:41 Urine Glucose (UA) Neg mg/dL (Negative) 07/23/18 15:41 Urine Ketones Neg mg/dL (Negative) 07/23/18 15:41 Urine Blood Neg (Negative) 07/23/18 15:41 Urine Nitrite Neg (Negative) 07/23/18 15:41 Urine Bilirubin Neg (Negative) 07/23/18 15:41 Urine Urobilinogen < 2.0 mg/dL (<2.0) 07/23/18 15:41 Ur Leukocyte Esterase Neg (Negative) 07/23/18 15:41 Urine WBC (Auto) < 1.0 /HPF (0.0-6.0) 07/23/18 15:41 Urine RBC (Auto) 1.0 /HPF (0.0-6.0) 02/28/19 15:41 Urine Mucus Few /HPF 02/28/19 15:41 Urine Opiates Screen Presumptive negative 07/23/18 15:41 Urine Methadone Screen Presumptive negative 07/23/18 15:41 Ur Barbiturates Screen Presumptive negative 07/23/18 15:41 Ur Phencyclidine Scrn Presumptive negative 07/23/18 15:41 Ur Amphetamines Screen Presumptive negative 07/23/18 15:41 U Benzodiazepines Scrn Presumptive negative 07/23/18 15:41 Urine Cocaine Screen Presumptive negative 07/23/18 15:41 U Marijuana (THC) Screen Presumptive negative 07/23/18 15:41 Drugs of Abuse Note Disclamer 07/23/18 15:41
--- NOTE | 2018-07-28 14:57 | XRay Report ---
AP ABDOMEN: HISTORY: Abdominal pain. The abdominal gas pattern is unremarkable. No masses or organomegaly is identified and there is no gross evidence of free air or fluid. No significant soft tissue calcifications are noted. IMPRESSION: Unremarkable abdomen.
[2018-07-28] MEDS ORDERED: NORCO 5/325 PO PRN (15:06)
[2018-07-28] MEDS ORDERED: TYLENOL PO PRN (15:06)
[2018-07-28] MEDS: MORPHINE IV PRN (16:12)
--- NOTE | 2018-07-28 18:48 | Cat Scan Report ---
PROCEDURE: CT ABDOMEN PELVIS WO CON TECHNIQUE: Computerized axial tomography of the abdomen and pelvis was performed without intravenous contrast. This study is performed without intravascular contrast material and its sensitivity for ab dominal and pelvic pathology, including neoplasms, inflammation, abscess, free fluid, thrombosis, art erial dissection and infarction, is reduced compared with a contrast enhanced study. HISTORY: severe abd pains COMPARISONS: None . FINDINGS: Lower Lung malcolm: There are linear bands of atelectasis in the lung bases. A small benign-appearing air cyst is visualized in the right lung base. Upper Abdomen: Multiple moderate-sized calcified gallstones are visualized partially filling the gal lbladder. Gallbladder is otherwise unremarkable. The unenhanced images of the liver are unremarkable. The adrenal glands, the pancreas and spleen are unremarkable. There is a mild ill-defined increased density around the tail the pancreas. Some of this could be related to breathing motion artifact. Cor relation with serum amylase and lipase recommended to exclude mild acute pancreatitis. The pancreas i s otherwise unremarkable. The findings are seen on images [id number] series 2 axial images. Kidneys, Ureters and Urinary bladder: No abnormalities are seen. Urinary bladder is moderately diste nded and otherwise unremarkable. Retroperitoneum: Atherosclerotic changes seen in the abdominal aorta. There is mild aneurysmal dilata tion infrarenal abdominal aorta measuring 3.8 x 3.9 cm. There is also mild ectasia of the left common iliac artery measuring up to 1.5 cm in diameter. Nonspecific subcentimeter lymph nodes are seen in the retroperitoneum. No pathologically enlarged ly mph nodes are identified. Bowel: No abnormalities are identified. There is no evidence of bowel obstruction ascites or free in traperitoneal gas. Normal-appearing appendix is seen in the right lower quadrant. Reproductive organs: The uterus is deviated to the right of midline and otherwise unremarkable. No a bnormal adnexal masses are seen. Other: Mild lumbar scoliosis visualized convex to the left. Moderate diffuse degenerative disc change s seen in the lumbar spine as well as facet arthritis. No acute bone abnormalities are identified. IMPRESSION: Cholelithiasis. Slight ill-definition soft tissues adjacent to the tail of the pancreas as described. Some of this ma y be related to breathing motion artifact. I cannot exclude mild acute inflammatory change, pancreati tis. Correlation with serum amylase and lipase levels is recommended. The pancreas is otherwise unrem arkable. Mild aneurysmal dilatation infrarenal abdominal aorta. Lumbar scoliosis and degenerative changes as described. No acute bone abnormalities are visualized This document is electronically signed by Tan Bennett MD., July 28 2018 06:46:07 PM ET
[2018-07-28] MEDS: SODIUM CHLORIDE FLUSH SYRINGE 10 ML IV PRN (21:24)
[2018-07-29] MEDS: DUONEB *Not for PRN Use IH SCH ×4 (02:25→19:46)
[2018-07-29] MEDS: MORPHINE IV PRN ×2 (03:50→15:10)
--- NOTE | 2018-07-29 09:31 | Ultrasound Report ---
Abdominal sonogram: History: Abdominal pain. Findings: Aortic diameter 1.8 cm. Gallbladder wall thickness 2.6 mm. Multiple large calculi identified within the gallbladder. No pericholecystic fluid. Common bile duct diameter 3.7 mm. No intrahepatic or extrahepatic duct dilatation. Fatty liver. Normal spleen. Pancreas is obscured by bowel gas. Right kidney 10.2 x 4.7 x 4.9 cm. Cortical thickness 1.1 cm. Left kidney 10.3 x 5 x 5.5 cm. Cortical thickness is 1.4 cm. Impression: Fatty liver. Multiple large calculi within the gallbladder .
[2018-07-29] MEDS: ASPIRIN PO SCH (10:09)
--- NOTE | 2018-07-29 15:35 | Progress Note ---
Assessment and Plan Assessment and plan: Patient is a 68 yo woman with a history of Obesity, HTN, COPD, and CHF who presented with acute onset of right sided weakness, treated with Alteplase -Acute Ischemic Stroke with Right hemiparesis and expressive aphasia s/p tPA: stroke protocol but hold oral statin due to speech/swallow impairment, use rectal ASA unless passes swallow evaluation, Neurology is following -Accelerated HTN due to above: permissive for now, Neurology is following -Dyslipidemia: liptor -Chronic Heart failure: strict I/O, daily weight, afterload reduction, -COPD (chronic obstructive pulmonary disease): supplemental oxygen as needed, nebulizer therapy prn -Abdominal pains with cholelithiasis: consult Surgery and GI, ordered Lipase placement pending History Interval history: Patient was seen and examined. Follow-up on current diagnosis of CVA. Overnight uneventful. Patient denies any chest pain, shortness breath, nausea/vomiting or severe headaches. Imaging, nursing note, chart, labs and old chart reviewed. Discussed with patient. She complains of abd pains Hospitalist Physical - Physical exam Narrative exam: Gen: WDWN, NAD, Awake, Alert, appears Orientated HEENT: NCAT, EOMI, PERRL, OP Clear Neck: supple, no adenopathy, no thyromegaly, no JVD CVS/Heart: RRR, normal S1S2, pulses present bilaterally Chest/Lungs: CTA B, Symmetrical chest expansion, good air entry bilaterally GI/Abdomen: soft, NTND, good bowel sounds, no guarding or rebound /Bladder: no suprapubic tenderness, no CVA or paraspinal tenderness Extermity/Skin: no c/c/e, no obvious rash MSK: FROM x 4, but weaker on right ext Neuro: CN 2-12 grossly intact except speech, right sided hemiparesis, upper and lower Psych: calm - Constitutional Vitals: Temp Pulse Resp BP Pulse Ox 97.4 F L 105 H 24 118/72 97 07/29/18 13:23 07/29/18 14:45 07/29/18 15:10 07/29/18 13:23 07/29/18 13:23 General appearance: Present: obese Results - Labs CBC & Chem 7: 07/25/18 02:00 07/25/18 02:00 Labs: Laboratory Last Values WBC 9.5 K/mm3 (4.5-11.0) 07/25/18 02:00 RBC 5.68 M/mm3 (3.65-5.03) H 07/25/18 02:00 Hgb 16.7 gm/dl (10.1-14.3) H 07/25/18 02:00 Hct 49.1 % (30.3-42.9) H 07/25/18 02:00 MCV 86 fl (79-97) 07/25/18 02:00 MCH 29 pg (28-32) 07/25/18 02:00 MCHC 34 % (30-34) 07/25/18 02:00 RDW 14.9 % (13.2-15.2) 07/25/18 02:00 Plt Count 169 K/mm3 (140-440) 07/25/18 02:00 Lymph % (Auto) 6.4 % (13.4-35.0) L 07/25/18 02:00 [place] % (Auto) 7.8 % (0.0-7.3) H 07/25/18 02:00 Eos % (Auto) 0.5 % (0.0-4.3) 07/25/18 02:00 Baso % (Auto) 0.2 % (0.0-1.8) 07/25/18 02:00 Lymph # 0.6 K/mm3 (1.2-5.4) L 07/25/18 02:00 [place] # 0.7 K/mm3 (0.0-0.8) 07/25/18 02:00 Eos # 0.0 K/mm3 (0.0-0.4) 07/25/18 02:00 Baso # 0.0 K/mm3 (0.0-0.1) 07/25/18 02:00 Seg Neutrophils % 85.1 % (40.0-70.0) H 07/25/18 02:00 Seg Neutrophils # 8.1 K/mm3 (1.8-7.7) H 07/25/18 02:00 PT 13.4 Sec. (12.2-14.9) 07/23/18 13:20 INR 0.96 (0.87-1.13) 07/23/18 13:20 APTT 20.1 Sec. (24.2-36.6) L 07/23/18 13:20 Thrombin Time 19.6 Sec. (15.1-19.6) 07/23/18 13:20 POC ABG pH 7.440 (7.35-7.45) 07/26/18 03:39 POC ABG pCO2 42.0 (35-45) 07/26/18 03:39 POC ABG pO2 73 (80-105) L 07/26/18 03:39 POC ABG HCO3 28.5 07/26/18 03:39 POC ABG Total CO2 30 07/26/18 03:39 POC ABG O2 Sat 95 07/26/18 03:39 POC ABG Base Excess 4 07/26/18 03:39 FiO2 40 % 07/26/18 03:39 Sodium 145 mmol/L (137-145) 07/25/18 02:00 Potassium 3.7 mmol/L (3.6-5.0) 07/25/18 02:00 Chloride 105.0 mmol/L (98-107) 07/25/18 02:00 Carbon Dioxide 27 mmol/L (22-30) 07/25/18 02:00 Anion Gap 17 mmol/L 07/25/18 02:00 BUN 20 mg/dL (7-17) H 07/25/18 02:00 Creatinine 0.7 mg/dL (0.7-1.2) 07/25/18 02:00 Estimated GFR > 60 ml/min 07/25/18 02:00 BUN/Creatinine Ratio 29 % 07/25/18 02:00 Glucose 128 mg/dL (65-100) H 07/25/18 02:00 Hemoglobin A1c 6.7 % (4-6) H 07/24/18 18:00 Calcium 8.1 mg/dL (8.4-10.2) L 07/25/18 02:00 Total Bilirubin 0.60 mg/dL (0.1-1.2) 07/23/18 13:20 AST 16 units/L (5-40) 07/23/18 13:20 ALT 14 units/L (7-56) 07/23/18 13:20 Alkaline Phosphatase 120 units/L (35-129) 07/23/18 13:20 Total Creatine Kinase 69 units/L (30-135) 07/23/18 13:20 CK-MB (CK-2) 1.9 ng/mL (0.0-4.0) 07/23/18 13:20 CK-MB (CK-2) Rel Index 2.7 (0-4) 07/23/18 13:20 Troponin T < 0.010 ng/mL (0.00-0.029) 07/23/18 13:20 Total Protein 7.0 g/dL (6.3-8.2) 07/23/18 13:20 Albumin 4.4 g/dL (3.9-5) 07/23/18 13:20 Albumin/Globulin Ratio 1.7 % 07/23/18 13:20 Triglycerides 277 mg/dL (2-149) H 07/24/18 05:30 Cholesterol 193 mg/dL (50-199) 07/24/18 05:30 LDL Cholesterol Direct 137 mg/dL (50-130) H 07/24/18 05:30 HDL Cholesterol 30 mg/dL (40-59) L 07/24/18 05:30 Cholesterol/HDL Ratio 6.43 % 07/24/18 05:30 Urine Color Straw (Yellow) 07/23/18 15:41 Urine Turbidity Clear (Clear) 07/23/18 15:41 Urine pH 7.0 (5.0-7.0) 07/23/18 15:41 Ur Specific [place] 1.018 (1.003-1.030) 07/23/18 15:41 Urine Protein <15 mg/dl mg/dL (Negative) 07/23/18 15:41 Urine Glucose (UA) Neg mg/dL (Negative) 07/23/18 15:41 Urine Ketones Neg mg/dL (Negative) 07/23/18 15:41 Urine Blood Neg (Negative) 07/23/18 15:41 Urine Nitrite Neg (Negative) 07/23/18 15:41 Urine Bilirubin Neg (Negative) 07/23/18 15:41 Urine Urobilinogen < 2.0 mg/dL (<2.0) 07/23/18 15:41 Ur Leukocyte Esterase Neg (Negative) 07/23/18 15:41 Urine WBC (Auto) < 1.0 /HPF (0.0-6.0) 07/23/18 15:41 Urine RBC (Auto) 1.0 /HPF (0.0-6.0) 07/23/18 15:41 Urine Mucus Few /HPF 07/23/18 15:41 Urine Opiates Screen Presumptive negative 07/23/18 15:41 Urine Methadone Screen Presumptive negative 07/23/18 15:41 Ur Barbiturates Screen Presumptive negative 07/23/18 15:41 Ur Phencyclidine Scrn Presumptive negative 07/23/18 15:41 Ur Amphetamines Screen Presumptive negative 07/23/18 15:41 U Benzodiazepines Scrn Presumptive negative 07/23/18 15:41 Urine Cocaine Screen Presumptive negative 07/23/18 15:41 U Marijuana (THC) Screen Presumptive negative 07/23/18 15:41 Drugs of Abuse Note Disclamer 07/23/18 15:41
[2018-07-29] MEDS: SODIUM CHLORIDE FLUSH SYRINGE 10 ML IV PRN (23:18)
[2018-07-30] MEDS: DUONEB *Not for PRN Use IH SCH ×3 (02:13→15:35)
[2018-07-30] MEDS: ASPIRIN PO SCH (10:09)
--- NOTE | 2018-07-30 10:29 | Progress Note ---
Assessment and Plan Assessment and plan: Patient is a 68 yo woman with a history of Obesity, HTN, COPD, and CHF who presented with acute onset of right sided weakness, treated with Alteplase -Acute Ischemic Stroke with Right hemiparesis and expressive aphasia s/p tPA: stroke protocol but hold oral statin due to speech/swallow impairment, use rectal ASA unless passes swallow evaluation, Neurology is following -Accelerated HTN due to above: permissive for now, Neurology is following -Dyslipidemia: liptor -Chronic Heart failure: strict I/O, daily weight, afterload reduction, -COPD (chronic obstructive pulmonary disease): supplemental oxygen as needed, nebulizer therapy prn -Abdominal pains with cholelithiasis: consult Surgery and GI, ordered Lipase Hospitalist Physical - Constitutional Vitals: Temp Pulse Resp BP Pulse Ox 97.6 F 114 H 22 138/85 97 07/30/18 08:14 07/30/18 08:14 07/30/18 08:14 07/30/18 08:14 07/30/18 08:14 General appearance: Present: obese Results - Labs CBC & Chem 7: 07/25/18 02:00 07/25/18 02:00 Labs: Laboratory Last Values WBC 9.5 K/mm3 (4.5-11.0) 07/25/18 02:00 RBC 5.68 M/mm3 (3.65-5.03) H 07/25/18 02:00 Hgb 16.7 gm/dl (10.1-14.3) H 07/25/18 02:00 Hct 49.1 % (30.3-42.9) H 07/25/18 02:00 MCV 86 fl (79-97) 07/25/18 02:00 MCH 29 pg (28-32) 07/25/18 02:00 MCHC 34 % (30-34) 07/25/18 02:00 RDW 14.9 % (13.2-15.2) 07/25/18 02:00 Plt Count 169 K/mm3 (140-440) 07/25/18 02:00 Lymph % (Auto) 6.4 % (13.4-35.0) L 07/25/18 02:00 [place] % (Auto) 7.8 % (0.0-7.3) H 07/25/18 02:00 Eos % (Auto) 0.5 % (0.0-4.3) 07/25/18 02:00 Baso % (Auto) 0.2 % (0.0-1.8) 07/25/18 02:00 Lymph # 0.6 K/mm3 (1.2-5.4) L 07/25/18 02:00 [place] # 0.7 K/mm3 (0.0-0.8) 07/25/18 02:00 Eos # 0.0 K/mm3 (0.0-0.4) 07/25/18 02:00 Baso # 0.0 K/mm3 (0.0-0.1) 07/25/18 02:00 Seg Neutrophils % 85.1 % (40.0-70.0) H 07/25/18 02:00 Seg Neutrophils # 8.1 K/mm3 (1.8-7.7) H 07/25/18 02:00 PT 13.4 Sec. (12.2-14.9) 07/23/18 13:20 INR 0.96 (0.87-1.13) 07/23/18 13:20 APTT 20.1 Sec. (24.2-36.6) L 07/23/18 13:20 Thrombin Time 19.6 Sec. (15.1-19.6) 07/23/18 13:20 POC ABG pH 7.440 (7.35-7.45) 07/26/18 03:39 POC ABG pCO2 42.0 (35-45) 07/26/18 03:39 POC ABG pO2 73 (80-105) L 07/26/18 03:39 POC ABG HCO3 28.5 07/26/18 03:39 POC ABG Total CO2 30 07/26/18 03:39 POC ABG O2 Sat 95 07/26/18 03:39 POC ABG Base Excess 4 07/26/18 03:39 FiO2 40 % 07/26/18 03:39 Sodium 145 mmol/L (137-145) 07/25/18 02:00 Potassium 3.7 mmol/L (3.6-5.0) 07/25/18 02:00 Chloride 105.0 mmol/L (98-107) 07/25/18 02:00 Carbon Dioxide 27 mmol/L (22-30) 07/25/18 02:00 Anion Gap 17 mmol/L 07/25/18 02:00 BUN 20 mg/dL (7-17) H 07/25/18 02:00 Creatinine 0.7 mg/dL (0.7-1.2) 07/25/18 02:00 Estimated GFR > 60 ml/min 07/25/18 02:00 BUN/Creatinine Ratio 29 % 07/25/18 02:00 Glucose 128 mg/dL (65-100) H 07/25/18 02:00 Hemoglobin A1c 6.7 % (4-6) H 07/24/18 18:00 Calcium 8.1 mg/dL (8.4-10.2) L 07/25/18 02:00 Total Bilirubin 0.60 mg/dL (0.1-1.2) 07/23/18 13:20 AST 16 units/L (5-40) 07/23/18 13:20 ALT 14 units/L (7-56) 07/23/18 13:20 Alkaline Phosphatase 120 units/L (35-129) 07/23/18 13:20 Total Creatine Kinase 69 units/L (30-135) 07/23/18 13:20 CK-MB (CK-2) 1.9 ng/mL (0.0-4.0) 07/23/18 13:20 CK-MB (CK-2) Rel Index 2.7 (0-4) 07/23/18 13:20 Troponin T < 0.010 ng/mL (0.00-0.029) 07/23/18 13:20 Total Protein 7.0 g/dL (6.3-8.2) 07/23/18 13:20 Albumin 4.4 g/dL (3.9-5) 07/23/18 13:20 Albumin/Globulin Ratio 1.7 % 07/23/18 13:20 Triglycerides 277 mg/dL (2-149) H 07/24/18 05:30 Cholesterol 193 mg/dL (50-199) 07/24/18 05:30 LDL Cholesterol Direct 137 mg/dL (50-130) H 07/24/18 05:30 HDL Cholesterol 30 mg/dL (40-59) L 07/24/18 05:30 Cholesterol/HDL Ratio 6.43 % 07/24/18 05:30 Lipase 60 units/L (13-60) 07/29/18 17:08 Urine Color Straw (Yellow) 07/23/18 15:41 Urine Turbidity Clear (Clear) 07/23/18 15:41 Urine pH 7.0 (5.0-7.0) 07/23/18 15:41 Ur Specific [place] 1.018 (1.003-1.030) 07/23/18 15:41 Urine Protein <15 mg/dl mg/dL (Negative) 07/23/18 15:41 Urine Glucose (UA) Neg mg/dL (Negative) 07/23/18 15:41 Urine Ketones Neg mg/dL (Negative) 07/23/18 15:41 Urine Blood Neg (Negative) 07/23/18 15:41 Urine Nitrite Neg (Negative) 07/23/18 15:41 Urine Bilirubin Neg (Negative) 07/23/18 15:41 Urine Urobilinogen < 2.0 mg/dL (<2.0) 07/23/18 15:41 Ur Leukocyte Esterase Neg (Negative) 07/23/18 15:41 Urine WBC (Auto) < 1.0 /HPF (0.0-6.0) 07/23/18 15:41 Urine RBC (Auto) 1.0 /HPF (0.0-6.0) 07/23/18 15:41 Urine Mucus Few /HPF 07/23/18 15:41 Urine Opiates Screen Presumptive negative 07/23/18 15:41 Urine Methadone Screen Presumptive negative 07/23/18 15:41 Ur Barbiturates Screen Presumptive negative 07/23/18 15:41 Ur Phencyclidine Scrn Presumptive negative 07/23/18 15:41 Ur Amphetamines Screen Presumptive negative 07/23/18 15:41 U Benzodiazepines Scrn Presumptive negative 07/23/18 15:41 Urine Cocaine Screen Presumptive negative 07/23/18 15:41 U Marijuana (THC) Screen Presumptive negative 07/23/18 15:41 Drugs of Abuse Note Disclamer 07/23/18 15:41
[2018-07-30] MEDS: MORPHINE IV PRN (11:30)
--- NOTE | 2018-07-30 14:47 | Consultation ---
History of Present Illness Consult date: 07/30/18 Reason for consult: abdominal pain Chief complaint: abdominal pain - History of present illness History of present illness: 68 yo F with hx of HTN, COPD on home O2 presented to ER as a stroke alert. She w as found to have an acute stroke and treated with alteplase. She has right sided deficits as a result of the stroke. The patient has new complaint of abdominal pain. She states the pain is sharp and located in the upper abdomen. She points mainly to the epigastrum but states it sometimes radiates to the right and left side. She has never had pain like this before. She also c/o nausea but no vomiti ng. She is tolerating a pureed diet. She has not had a BM since admission but is passing flatus. No f/c. Abd pain w/u was done which consisted of Ct A/P and RUQ u/s which showed gallstones. Surgery asked to evaluate patient. Past History Past Medical History: COPD, heart failure, hypertension Past Surgical History: No surgical history, Other (reviewed) Social history: , lives with family. denies: smoking, alcohol abuse, prescription drug abuse Family history: hypertension Medications and Allergies Allergies Allergy/AdvReac Type Severity Reaction Status Date / Time No Known Allergies Allergy Verified 07/18/16 13:05 Home Medications Medication Instructions Recorded Confirmed Last Taken Type Furosemide [Lasix TAB] 40 mg PO DAILY 07/18/16 07/23/18 07/18/16 History Potassium Chloride [K-Dur] 10 meq PO DAILY 07/18/16 07/23/18 07/18/16 History Albuterol Sulfate [Ventolin HFA] 1 puff IH PRN PRN 07/23/18 07/23/18 Unknown History Atenolol [Tenormin] 100 mg PO DAILY 07/23/18 07/23/18 Unknown History Lisinopril [Zestril] 40 mg PO DAILY 07/23/18 07/23/18 Unknown History Loratadine [Claritin] 10 mg PO DAILY 07/23/18 07/23/18 Unknown History Omeprazole 40 mg PO DAILY 07/23/18 07/23/18 Unknown History levoFLOXacin [Levaquin] 750 mg PO DAILY 07/23/18 07/23/18 Unknown History predniSONE [Deltasone] 60 mg PO DAILY 07/23/18 07/23/18 Unknown History Active Meds: Active Medications Acetaminophen (Tylenol) 650 mg PO Q6H PRN PRN Reason: Non Cardiac Pain or Temp>100.5 Acetaminophen/Hydrocodone Bitart ([place] 5/325) 1 each PO Q4H PRN PRN Reason: Pain, Moderate (4-6) Albuterol (Proventil) 2.5 mg IH Q4HRT PRN PRN Reason: Shortness Of Breath Last Admin: 07/26/18 03:13 Dose: 2.5 mg Documented by: Albuterol/Ipratropium (Duoneb *Not For Prn Use*) 1 ampul IH Q6HRT [facility] Last Admin: 07/30/18 08:28 Dose: 1 ampul Documented by: Aspirin (Aspirin) 325 mg PO QDAY [facility] Last Admin: 07/30/18 10:09 Dose: 325 mg Documented by: Atorvastatin Calcium (Lipitor) 40 mg PO QHS [facility] Last Admin: 07/29/18 23:18 Dose: 40 mg Documented by: Bisacodyl (Dulcolax) 10 mg [place] QDAY PRN PRN Reason: Constipation Last Admin: 07/27/18 20:35 Dose: 10 mg Documented by: Morphine Sulfate (Morphine) 2 mg IV Q4H PRN PRN Reason: Pain , Severe (7-10) Last Admin: 07/30/18 11:30 Dose: 2 mg Documented by: Ondansetron HCl (Zofran) 4 mg IV Q8H PRN PRN Reason: Nausea And Vomiting Sodium Chloride (Sodium Chloride Flush Syringe 10 Ml) 10 ml IV PRN PRN PRN Reason: LINE FLUSH Last Admin: 07/29/18 23:18 Dose: 10 ml Documented by: Review of Systems All systems: negative (10 pt ROS performed and negative except for that listed in HPI) Exam Vital Signs Temp Pulse Resp BP Pulse Ox 98.3 F 74 26 H 167/93 98 07/23/18 13:10 07/23/18 13:10 07/23/18 13:10 07/23/18 13:10 07/23/18 13:10 Narrative exam: Gen: Awake and alert. Able to answer yes and no questions. Speech is aphasic ENT: no scleral icterus or conjunctival pallor CV: s1, s2+ resp; even and unlabored Abd: soft, ND, mild TTP in RUQ, epigastrum, LUQ, LLQ, and mid abdomen. No r/r/g Ext: no c/c/e. R sided weakness Results - Labs 07/25/18 02:00 07/25/18 02:00 - Imaging CT scan - abdomen: report reviewed, image reviewed CT scan - pelvis: report reviewed, image reviewed US - abdomen: report reviewed, image reviewed Assessment and Plan 68 yo F with 1. abdominal pain 2. cholelithiasis 3. acute CVA 4. COPD on home O2 Plan: 1. Although the patient has gallstones on imaging, she has no signs suggestive of acute cholecystitis. Her WBC and LFTs are normal. Lipase is normal. Her pain is more generalized. I recommend diet modification to low fat diet. This may help patient with symptoms if they are related to gallstones. No urgent intervention is recommended at this time especially in the light of acute CVA. 2. add PPI 3. prn pain control If patient's symptoms worsen, would consider HIDA scan. Thank you, please call with questions.
[2018-07-30 14:53] VITALS: BP 148/82
--- NOTE | 2018-07-30 15:43 | Discharge Summary ---
Providers - Providers Date of Admission: 07/23/18 16:23 Attending physician: GLENNY PIZANO MD 07/23/18 16:23 Occupational Therapy Evaluate and Treat [CONS] Routine Comment: Reason For Exam: Neuro deficits Physical Therapy Evaluation and Treat [CONS] Routine Comment: Reason For Exam: Neuro deficits 07/23/18 16:28 Consult to Physician [CONS] Routine Comment: DR ROSALBA BOWERS AWARE OF PT Consulting Provider: MAGEN JAQUEZ Physician Instructions: Reason For Exam: cva 07/24/18 12:38 Speech Therapy Evaluation and Treat [CONS] Stat Reason For Exam: stroke pt. failed bedside swallow eval 07/29/18 15:27 Consult to Physician [CONS] Routine Comment: called office/mary Consulting Provider: ANAHI ERIC Physician Instructions: Reason For Exam: symptomatic Cholelithiasis [facility] Reason for admission: cva Condition: Serious Hospital course: Patient is a 68 yo woman with a history of Obesity, HTN, COPD, and CHF who presented with acute onset of right sided weakness, treated with Alteplase -Acute Ischemic Stroke with Right hemiparesis and expressive aphasia s/p tPA: stroke protocol but hold oral statin due to speech/swallow impairment, converted to oral with passing of swallow eval -Accelerated HTN due to above: permissive for now, Neurology is following -Dyslipidemia: liptor -Chronic Heart failure: strict I/O, daily weight, afterload reduction, -COPD (chronic obstructive pulmonary disease): supplemental oxygen as needed, nebulizer therapy prn -Abdominal pains with cholelithiasis: patient was seen by surgery and no surgery recommended at this time, they recommended LOW FAT DIET PER SURGERY patient was discharged to REHAB FAMILY WAS AT BEDSIDE AND PLAN DISCUSSED WITH THEM Disposition: [id number] Time spent for discharge: 35 MINS Core Measure Documentation - Palliative Care Palliative Care/ Comfort Measures: Not Applicable - Core Measures Any of the following diagnoses?: stroke - Stroke Discharge Requirements Statin for LDL = or >70 mg/dl on DC: Yes Anticoag for atrial fib/atrial flutter: Not Applicable Antithrombotic for ischemic stroke: Yes Exam - Physical Exam Narrative exam: Narrative exam: Gen: WDWN, NAD, Awake, Alert, appears Orientated HEENT: NCAT, EOMI, PERRL, OP Clear Neck: supple, no adenopathy, no thyromegaly, no JVD CVS/Heart: RRR, normal S1S2, pulses present bilaterally Chest/Lungs: CTA B, Symmetrical chest expansion, good air entry bilaterally GI/Abdomen: soft, NTND, good bowel sounds, no guarding or rebound /Bladder: no suprapubic tenderness, no CVA or paraspinal tenderness Extermity/Skin: no c/c/e, no obvious rash MSK: FROM x 4, but weaker on right ext Neuro: CN 2-12 grossly intact except speech, right sided hemiparesis, upper and lower Psych: calm - Constitutional Vitals: Temp Pulse Resp BP Pulse Ox 98.4 F 111 H 20 148/82 96 07/30/18 14:56 07/30/18 14:56 07/30/18 14:56 07/30/18 14:56 07/30/18 14:56 Plan Activity: advance as tolerated, fall precautions Diet: low fat Special Instructions: record daily weights, record daily BP diary Follow up with: MYRNA COLEROCKY FORD MD TRUPTI [Primary Care Provider] - 3-5 Days ANAHI ERIC DO [Staff Physician] - 7 Days Prescriptions: AtorvaSTATin [Lipitor] 40 mg PO QHS #30 tablet Aspirin [Aspirin TAB] 325 mg PO QDAY #30 tablet
== END 2018-07-30 17:09 | DRG 61 ==
LOC: ED 13:08 → CC1 16:23 → 2B-ACE 07-25 16:39
PROVIDERS: ADMIT Internal Medicine; ATTEND Internal Medicine
PROC: 3E05317 Introduction of Other Thrombolytic into Peripheral Artery, Percutaneous Approach (ICD-10-PCS; principal; 2018-07-23)
PROC: 4A033R1 Measurement of Arterial Saturation, Peripheral, Percutaneous Approach (ICD-10-PCS; 2018-07-25)
PROC: 5A09457 Assistance with Respiratory Ventilation, 24-96 Consecutive Hours, Continuous Positive Airway Pressure (ICD-10-PCS; 2018-07-25)
DX: I63.9 Cerebral infarction, unspecified (principal); J96.01 Acute respiratory failure with hypoxia; G81.91 Hemiplegia, unspecified affecting right dominant side; I50.9 Heart failure, unspecified; I11.0 Hypertensive heart disease with heart failure; E66.9 Obesity, unspecified; J44.9 Chronic obstructive pulmonary disease, unspecified; E78.5 Hyperlipidemia, unspecified; R47.01 Aphasia; K80.20 Calculus of gallbladder without cholecystitis without obstruction; Z82.49 Family history of ischemic heart disease and other diseases of the circulatory system; Z79.899 Other long term (current) drug therapy; Z99.81 Dependence on supplemental oxygen; Z68.35 Body mass index [BMI] 35.0-35.9, adult
CPT/HCPCS: 36415; 36600; 70450; 70496; 70498; 70544; 70551; 71045; 74018; 74176; 76700; 80048; 80053; 80061; 80307; 81001; 82550; 82553; 82803; 83036; 83690; 84484; 85025; 85610; 85670; 85730; 93005; 93010; 93306; 93880; 94640; 94660; 94760; 96361; 96374; 96375; 99292; G0378; A9270-GY; J0360; J1940; J2270; J2405; J2930; J2997; J7030; J7050; Q9967

== ENCOUNTER 2018-07-30 15:28 | Inpatient (IN) | payer MEDICARE ==
[2018-07-30] MEDS ORDERED: MILK OF MAGNESIA PO PRN (16:26)
[2018-07-30] MEDS ORDERED: TYLENOL PO PRN (16:26)
[2018-07-30] MEDS ORDERED: DULCOLAX PR PRN (18:20)
--- NOTE | 2018-07-30 19:29 | History and Physical Report ---
History of Present Illness Date: 07/30/18 Date of admission: 07/30/18 18:09 Chief Complaint: Left CVA History of present illness: 68 YO Female with Obesity, HTN, COPD, CHF presented to ED for evaluation for right sided weakness and decreased responsiveness. 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 EMS was notified and upon arrival the patient was found to have neurologic deficit resulting in a code stroke, found to have Acute CVA and was treated with TPA in ED. She was transferred to the ICU afterwards for monitoring. MRI brain showed acute left basal ganglia/left periventricular white matter infarct and a small acute infarct in the left cerebellum. Prior to transfer she developed abdominal pain and was evaluated and found to have gallstones. After she was medically cleared she was transferred for further rehab. Past History Past Medical History: COPD, heart failure, hypertension Past Surgical History: No surgical history Social history: , lives with family, full code, other (former smoker, denies alcohol and illicit drug abuse) Family history: cancer, hypertension Medications and Allergies Allergies Allergy/AdvReac Type Severity Reaction Status Date / Time No Known Allergies Allergy Verified 07/18/16 13:05 Home Medications Medication Instructions Recorded Confirmed Last Taken Type Furosemide [Lasix TAB] 40 mg PO DAILY 07/18/16 07/23/18 07/18/16 History Potassium Chloride [K-Dur] 10 meq PO DAILY 07/18/16 07/23/18 07/18/16 History Albuterol Sulfate [Ventolin HFA] 1 puff IH PRN PRN 07/23/18 07/23/18 Unknown History Atenolol [Tenormin] 100 mg PO DAILY 07/23/18 07/23/18 Unknown History Lisinopril [Zestril] 40 mg PO DAILY 07/23/18 07/23/18 Unknown History Loratadine [Claritin] 10 mg PO DAILY 07/23/18 07/23/18 Unknown History Omeprazole 40 mg PO DAILY 07/23/18 07/23/18 Unknown History ALBUTEROL NEB's [Proventil 0.083% 2.5 mg IH Q4HRT PRN nebu 07/30/18 Unknown Rx NEBS] Acetaminophen [Acetaminophen TAB] 650 mg PO Q6H PRN tablet 07/30/18 Unknown Rx Aspirin [Aspirin TAB] 325 mg PO QDAY #30 tablet 07/30/18 Unknown Rx AtorvaSTATin [Lipitor] 40 mg PO QHS #30 tablet 07/30/18 Unknown Rx Bisacodyl [Dulcolax suppos] 10 mg [place] QDAY PRN supp.rect 07/30/18 Unknown Rx HYDROcodone/APAP 5-325 [Stratton 1 each PO Q4H PRN tablet 07/30/18 Unknown Rx 5-325 mg TAB] Ipratropium/Albuterol Sulfate 1 ampul IH Q6HRT ampul.neb 07/30/18 Unknown Rx [DUONEB *Not for PRN Use*] Active Meds: Active Medications Acetaminophen (Tylenol) 650 mg PO Q4H PRN PRN Reason: Pain MILD(1-3)/Fever >100.5/FRITZ Acetaminophen/Hydrocodone Bitart (Stratton 5/325) 1 each PO Q4H PRN PRN Reason: Pain, Moderate (4-6) Albuterol (Proventil) 2.5 mg IH Q4HRT PRN PRN Reason: Shortness Of Breath Aspirin (Aspirin) 325 mg PO QDAY KYUNG Atenolol (Tenormin) 25 mg PO QDAY KYUNG Atorvastatin Calcium (Lipitor) 40 mg PO QHS KYUNG Bisacodyl (Dulcolax) 10 mg [place] QDAY PRN PRN Reason: Constipation unrelieved by MOM Enoxaparin Sodium (Lovenox) 40 mg SUB-Q QDAY KYUNG Magnesium Hydroxide (Milk Of Magnesia) 30 ml PO Q4H PRN PRN Reason: Constipation Review of Systems All systems: negative (unless noted below 12 systems are reviewed and negative) Constitutional: weakness Ears, nose, mouth and throat: no decreased hearing, no headache Cardiovascular: dyspnea on exertion, no chest pain, no rapid/irregular heart beat, no shortness of breath, no leg edema Respiratory: shortness of breath, respiratory infections, home oxygen, no cough Gastrointestinal: abdominal pain, constipation, no nausea, no vomiting Musculoskeletal: muscle weakness Neurological: weakness, lack of coordination, balance difficulties, gait dysfunction, other (right visual deficit) Psychiatric: no anxiety, no hopelessness Exam - Exam Narrative exam: MUSCULOSKELETAL SPECIALTY EXAM CONSTITUTIONAL: Well developed, well nourished, appropriately groomed obese. RIGHT hand dominant. LYMPHATIC: No appreciable abnormalities palpable in neck RESPIRATORY: Bilateral wheeze to ascultation, no increased work of breathing, on 2L O2 at home 16/12 CARDIOVASCULAR: Regular Rate/ Rhythm, no swelling, edema or tenderness in BUE or BLE. Pulses palpable in all extremities. All extremities warm. GI: + bowel sounds, soft, mild TTP, nondistended. INTEGUMENTARY: Normal, no lesion, rash, masses or bruising noted in extremities. MUSCULOSKELETAL: BUE and BLE normal without defect, crepitus, subluxation, effusion, arthritic changes or TTP. SA EF WE EE FF FA HF KE ADF EHL APF R 4-/5 4-/5 4-/5 4-/5 3/5 4-/5 4-/5 4-/5 4-/5 4-/5 4-/5 L 5/5 5/5 5/5 5/5 5/5 5 /5 5/5 5/5 5/5 5/5 5/5 ROM decreased on right, normal on left Tone normal NEURO: CN II : Visual malcolm full to confrontation on left, decreased on right CN II, III : PERRL CN III, IV, : EOMI CN V : Facial sensation intact CN VII : asymmetric facial expressions (right facial droop) CN VIII : Hearing intact to finger rustle CN IX, X : Palate/uvula elevate midline, phonation abnormal CN XI : Intact shoulder shrug and head rotation on left, decreased on right CN XII : Tongue appears to protrude midline but does not protrude much out of mouth Sensation intact in all extremities without extinction. Reflexes 2+ on left and 3+ on right at biceps, brachioradialis and patella. No clonus at ankles. Coordination intact in on LUE and decreased on RUE No tremor noted in 4 extremities. Naming and repetition impaired. Able to choose items and colors. Had difficulty touching right face, likely has left inattention Follows 1 step commands. Dysphasia and Dysarthria present Dysphagia POSTURE and GAIT: Sitting posture good. Balance appears reasonable in bed, will assess when up. Gait deferred until seen with therapy. PSYCH: Alert, orientated x3, affect appears flat. Insight appears intact. - Allied health notes Allied health notes reviewed: nursing, PT, ST, OT - Imaging and cardiology Chest x-ray: report reviewed Abdominal x-ray: report reviewed, image reviewed CT scan - abdomen: report reviewed CT Scan - head: report reviewed, image reviewed MRI - head: report reviewed, image reviewed Assessment and Plan Assessment and plan: Patient was assessed and evaluated for Acute Inpatient Rehab Unit. Due to the patients above-mentioned medical complexity, along with decreased functional mobility and self care, this patient continues to require and be appropriate for a comprehensive, multidisciplinary rxowk-te-[id number] rehabilitation program. These needs cannot be met in an outpatient or other less intensive setting. The patient would continue to benefit from skilled therapy intervention for at least 3 hours per day, five days a week, with techniques specific to the needs of the patient to improve function, activities of daily living, and reintegration into the community. The patient continues to require: -- OT to improve ROM, self-care, and learn use of adaptive equipment -- PT to improve strength and balance, functional transfers, and ambulation with energy conservation techniques to improve functional mobility -- NO BAKE MOLDER to address cognitive deficits and swallowing ability -- 24 hour RN to ensure and prevent skin breakdown, promote progressive independ ence while ensuring safety, ensure education regarding medications, and incorporation of the rehabilitation at the bedside -- 24 hour Director [employer] to coordinate this interdisciplinary program, and to m anage/prevent complications as a result of the patients medical comorbidities. -Plan of care by day 4 -Weekly team conferences With such a program, there is a reasonable certainty that the goals ind ividualized for this patient can be achieved within the specified length of stay. 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 Will monitor for shoulder hand syndrome and post stroke depression. Former Tob use I69.321 Dysphasia: NO BAKE MOLDER to work to improve ability to communicate with strategies and repetition I69.391 Dysphagia: on modified diet, advance as able. EStim, FEES, MBS as needed I69.322 Dysarthria: NO BAKE MOLDER to work on improving motor control for speech improvement I69.312 Visuospatial deficit after CVA: monitor right side, cue towards right, scanning strategies I10 Hypertension: Will restart atenolol, monitor BP and adjust as needed I50.9 Heart Failure: BNP pending for baseline, restart lasix if needed J44.9 COPD: On home O2, continue inhalers/nebs and adjust as needed, monitor for worsening. CXR in AM, was being treated with Abx prior to CVA and did not finish, wheezing now Z73.6 ADL dysfunction: OT will work on improving ability to perform ADLs (including assistive devices) to increase independence and decrease caregiver burden and improve functional transfers and mobility training. R26.2 Difficulty walking: PT will work on gait training and proper use of assistive devices and advance as appropriate to use of stairs and outside ambulation on uneven surfaces. R26.81 Unsteadiness on feet: PT will work on improving static and dynamic sitting and standing balance as well as proper use of assistive devices to decrease risk of falls. R26.89 Abnormality of gait: PT will work to improve safety and efficiency of gait through neuromotor training and gait training along with instruction on proper use of assistive devices. M62.81 Muscle weakness: PT & OT will work on strengthening exercises to improve functional strength including mixture of closed and open kinetic chain exercises. R53.81 Debility: PT & OT will work on improving overall functional status to improve participation with ADLs, mobility and social involvement. R53.83 Fatigue: PT & OT will work on improving endurance through aerobic exercises and therapeutic activity while monitoring patients tolerance for activity and vital signs as needed. DVT ppx:Lovenox Pain: Continue physical modalities in therapy and pain medications as needed to achieve functional pain control. Sleep: Monitor and address as needed. Bowel: Monitor and address as needed. Medications added for constipation Appetite: Monitor and address as needed. Discharge planning: Pending therapy progress and care plan meeting. Will continue discussion with therapy team, SW, patient and family. Restrictions/ Precautions: Falls, Aspiration, right visual deficit WB status: FWB Functional Hx: ADLs: Independent Cognition: Independent Mobility: No AD Barriers to Discharge: Decreased mobility and ability to perform self care, balance deficits, weakness Estimated Length of Stay: 14-21 days Discharge Destination: Home with family POST ADMISSION PHYSICIAN EVALUATION I have examined the patient and find that functional status, medical condition and appropriateness for IRF admission are essentially unchanged from those described in the preadmission screening. Will monitor for worsening HTN, CHF, or COPD, DVT/PE, bowel and bladder complications and complications due to these comorbidities and electrolyte abnormalities. Will attempt to avoid occurrence of these issues or treat them if they present themselves.
[2018-07-30] MEDS: PROVENTIL IH PRN (22:45)
[2018-07-31] MEDS: DUONEB *Not for PRN Use IH SCH ×4 (02:58→21:11)
[2018-07-31 05:08] LABS: Basophils % (Auto) 0.2 % (0.0-1.8); Eosinophils # (Auto) 0.2 K/mm3 (0.0-0.4); Eosinophils % (Auto) 1.9 % (0.0-4.3); Hematocrit 43.1 % (30.3-42.9); Hemoglobin 14.6 gm/dl (10.1-14.3); Lymphocytes # (Auto) 0.6 K/mm3 (1.2-5.4); Lymphocytes % (Auto) 6.3 % (13.4-35.0); Mean Corpuscular HGB Conc 34 % (30-34); Mean Corpuscular Volume 87 fl (79-97); Monocytes # (Auto) 0.8 K/mm3 (0.0-0.8); Monocytes % (Auto) 8.7 % (0.0-7.3); Platelet Count 109 K/mm3 (140-440); Red Blood Count 4.94 M/mm3 (3.65-5.03)
[2018-07-31 05:35] LABS: Albumin 3.6 g/dL (3.9-5); Calcium 8.8 mg/dL (8.4-10.2)
[2018-07-31] MEDS: MIRALAX 3350 PO SCH (11:00)
[2018-07-31] MEDS: NORCO 5/325 PO PRN (11:19)
[2018-07-31] MEDS: ASPIRIN PO SCH (13:28)
[2018-07-31] MEDS: LOVENOX SUB-Q SCH (13:28)
--- NOTE | 2018-07-31 17:28 | XRay Report ---
PROCEDURE: XR CHEST ROUTINE 2V TECHNIQUE: Chest 2 views HISTORY: Wheeze, cough, dyspnea COMPARISONS: FINDINGS: There is some streaky opacity seen at the lung bases on lateral view most likely right lower lobe. Ca rdiac and mediastinal contours are unremarkable. Pulmonary vasculature is unremarkable. No pleural ef fusion identified. IMPRESSION: Mild atelectasis or infiltrate within the right lower lobe. This document is electronically signed by Thompson Ford MD., July 31 2018 05:26:23 PM ET
[2018-07-31] MEDS ORDERED: POTASSIUM CHLORIDE PO ONE (17:44)
[2018-07-31] MEDS: TENORMIN PO SCH (17:51)
[2018-08-01] MEDS: DUONEB *Not for PRN Use IH SCH ×4 (04:06→20:57)
[2018-08-01] MEDS: LASIX PO SCH ×2 (04:38→09:35)
[2018-08-01 07:26] LABS: Basophils % (Auto) 0.2 % (0.0-1.8); Eosinophils # (Auto) 0.1 K/mm3 (0.0-0.4); Eosinophils % (Auto) 1.3 % (0.0-4.3); Hematocrit 42.4 % (30.3-42.9); Hemoglobin 14.3 gm/dl (10.1-14.3); Lymphocytes # (Auto) 0.4 K/mm3 (1.2-5.4); Lymphocytes % (Auto) 4.3 % (13.4-35.0); Mean Corpuscular HGB Conc 34 % (30-34); Mean Corpuscular Volume 86 fl (79-97); Monocytes # (Auto) 0.8 K/mm3 (0.0-0.8); Monocytes % (Auto) 7.9 % (0.0-7.3); Platelet Count 117 K/mm3 (140-440); Red Blood Count 4.91 M/mm3 (3.65-5.03); Red Cell Distribution Width 15.1 % (13.2-15.2)
[2018-08-01 07:39] LABS: Calcium 8.7 mg/dL (8.4-10.2)
[2018-08-01] MEDS: LOVENOX SUB-Q SCH (09:29)
[2018-08-01] MEDS: TENORMIN PO SCH (09:29)
[2018-08-01] MEDS: MIRALAX 3350 PO SCH (09:29)
[2018-08-01] MEDS: ASPIRIN PO SCH (09:30)
[2018-08-01] MEDS: NORCO 5/325 PO PRN (13:57)
[2018-08-01] MEDS ORDERED: NACL 0.9% 1000 ML 1,000 ML IV ONE (16:44)
--- NOTE | 2018-08-01 18:13 | Progress Note ---
Subjective Date of service: 08/01/18 Principal diagnosis: Left CVA Interval history: 68 YO Female with Obesity, HTN, COPD, CHF presented to ED for evaluation for right sided weakness and decreased responsiveness. 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 EMS was notified and upon arrival the patient was found to have neurologic deficit resulting in a code stroke, found to have Acute CVA and was treated with TPA in ED. She was transferred to the ICU afterwards for monitoring. MRI brain showed acute left basal ganglia/left periventricular white matter infarct and a small acute infarct in the left cerebellum. Prior to transfer she developed abdominal pain and was evaluated and found to have gallstones. After she was medically cleared she was transferred for further rehab. Patient is participating in therapy and making reasonable progress. Taking rest breaks as needed. +BM. Denies pain, palpitations, dyspnea, cough, N/V, or joint pain. Admits to intermittent colicky RUQ pain but not currently. Does not like food choices. Encouraged her to eat. BP has been a little better since starting back on antihypertensive, still tachycardic. Lasix restarted at low dose, monitor renal function. Giving 1L NS due to dehydration. K replaced. Mg elevated, recheck in few days. Walking with therapy, on stairs. RUE shoulder abduction and finger abduction improved. Speech about the same. All records, vitals, labs and medications were reviewed. No other issues per patient, nursing or therapy. Objective - Exam Narrative Exam: MUSCULOSKELETAL SPECIALTY EXAM CONSTITUTIONAL: Well developed, well nourished, appropriately groomed obese. RIGHT hand dominant. RESPIRATORY: Bilateral wheeze to ascultation, no increased work of breathing, on 2L O2 at home 16/12 CARDIOVASCULAR: Regular Rhythm,tachycardic, no swelling, edema or tenderness in BUE or BLE. All extremities warm. GI: + bowel sounds, soft, NTTP, nondistended. INTEGUMENTARY: Normal, no lesion, rash, masses or bruising noted in extremities. MUSCULOSKELETAL: BUE and BLE normal without defect, crepitus, subluxation, effusion, arthritic changes or TTP. SA EF WE EE FF FA HF KE ADF EHL APF R 4-/5 4-/5 4-/5 4-/5 3/5 4-/5 4-/5 4-/5 4-/5 4-/5 4-/5 L 5/5 5/5 5/5 5/5 5/5 5 /5 5/5 5/5 5/5 5/5 5/5 ROM decreased on right, normal on left Tone normal NEURO: CN II - XII grossly intact except: visual field decreased on right, right facial droop, decreased shoulder shrug and head rotation on right Sensation intact in all extremities without extinction. No tremor noted in 4 extremities. Naming and repetition impaired. Likely has left inattention Follows 1 step commands. Dysphasia and Dysarthria present Dysphagia POSTURE and GAIT: Sitting posture good. Balance appears reasonable in bed, decreased with standing. Gait deferred until seen with therapy. PSYCH: Alert, oriented x3, affect appears flat. Insight appears intact. - Constitutional Vitals: Vital Signs - 12hr 08/01/18 08/01/18 08/01/18 07:40 07:47 07:51 Temperature 36.9 C Pulse Rate 106 H Pulse Rate [ 100 H 102 H Bilateral Throughout] Respiratory 22 Rate Respiratory 20 20 Rate [Bilateral Throughout] Blood Pressure 117/72 O2 Sat by Pulse 95 94 Oximetry 08/01/18 08/01/18 08/01/18 09:29 13:57 14:15 Temperature Pulse Rate 106 H Pulse Rate [ 88 Bilateral Throughout] Respiratory 22 Rate Respiratory 18 Rate [Bilateral Throughout] Blood Pressure 117/72 O2 Sat by Pulse Oximetry 08/01/18 08/01/18 08/01/18 14:21 14:57 17:24 Temperature 37.1 C Pulse Rate 96 H Pulse Rate [ 90 Bilateral Throughout] Respiratory 22 20 Rate Respiratory 18 Rate [Bilateral Throughout] Blood Pressure 123/73 O2 Sat by Pulse 95 Oximetry - Allied health notes Allied health notes reviewed: nursing, PT, ST, OT FIMS assessment as documented by PT/OT/ST: Grooming Patient cleans teeth/dentures: No Patient santos/brushes hair: Yes Patient washes, rinses and Yes dries face: Patient washes, rinses and Yes dries hands: Patient shaves: No Patient performs (no make-up/ 3/4 (75%) shaving): Grooming FIM Score 4. Minimal Assistance (Patient = 75% or more. Needs touching.) Toileting Toileting Device Commode over Toilet Patient able to: Adjust clothes before,Clean self,Adjust clothes after Patient able to perform: 2/3 (67%) Toileting FIM Score 4. Minimal Assistance (Patient = 75% or more. Needs touching.) Social interaction/Memory/Problem solving Social Interaction FIM Score 4. Minimal Assistance (Interacts appropriately 75-90%.) Memory FIM Score 4. Minimal Assistance (Recognizes and remembers 75-90%.) Problem Solving FIM Score 4. Minimal Assistance (Solves routine problems 75-90%.) Transfers Mode of Locomotion: Walking Bed/Chair/Wheelchair Transfers 4. Minimal Assistance (Patient = 75% or more. FIM Score Needs touching.) Toilet Transfers FIM Score 4. Minimal Assistance (Patient = 75% or more. Needs touching.) Patient transferred to: Shower Shower Transfers FIM Score 4. Minimal Assistance (Patient = 75% or more. Needs touching.) Locomotion- Stairs Device used on Stairs Handrail/s Number of Stairs Ascended/ 8 Descended Patient used handrail/support: Yes Stairs FIM Score 2. Maximal Assistance (Patient = 25% or more, 4- 6 stairs.) Locomotion- walk/wheelchair Most Frequent Mode of Walking Locomotion: Ambulation Distance 170 Walking FIM Score 3. Moderate Assistance (Patient=50% or more. Lifting. Minimum 150 ft.) Wheelchair Propulsion Distance 150 Wheelchair FIM Score 4. Minimal Assistance (Patient = 75% or more. Minimum of 150 ft.) Eating Eating FIM Score 5. Supervision/Set-Up (Needs help w/ containers, cutting meat, etc.) Dressing-Upper body Patient retrieves clothing No items: Patient applies/removes UE n/a prosthesis or orthosis: Upper Body Dressing FIM Score 4. Minimal Assistance (Patient = 75% or more. Needs touching.) Dressing-lower body Patient retrieves clothing No items: Patient applies/removes LE n/a prosthesis or orthosis: Lower Body Dressing FIM Score 4. Minimal Assistance (Patient = 75% or more. Needs touching.) - Labs CBC & Chem 7: 08/01/18 06:55 08/01/18 06:55 Labs: Laboratory Results - last 72 hr 07/31/18 07/31/18 08/01/18 04:35 04:35 06:55 WBC 8.8 9.7 RBC 4.94 4.91 Hgb 14.6 H 14.3 Hct 43.1 H 42.4 MCV 87 86 MCH 30 29 MCHC 34 34 RDW 15.0 15.1 Plt Count 109 L 117 L Lymph % (Auto) 6.3 L 4.3 L Stokes % (Auto) 8.7 H 7.9 H Eos % (Auto) 1.9 1.3 Baso % (Auto) 0.2 0.2 Lymph # 0.6 L 0.4 L Stokes # 0.8 0.8 Eos # 0.2 0.1 Baso # 0.0 0.0 Seg Neutrophils % 82.9 H 86.3 H Seg Neutrophils # 7.3 8.4 H Sodium 143 Potassium 3.4 L Chloride 99.0 Carbon Dioxide 31 H Anion Gap 16 BUN 49 H Creatinine 1.0 Estimated GFR 55 BUN/Creatinine Ratio 49 Glucose 127 H Calcium 8.8 Magnesium Total Bilirubin 1.10 AST 19 ALT 26 Alkaline Phosphatase 96 NT-Pro-B Natriuret Pep 70.34 Total Protein 6.0 L Albumin 3.6 L Albumin/Globulin Ratio 1.5 08/01/18 06:55 WBC RBC Hgb Hct MCV MCH MCHC RDW Plt Count Lymph % (Auto) Stokes % (Auto) Eos % (Auto) Baso % (Auto) Lymph # Stokes # Eos # Baso # Seg Neutrophils % Seg Neutrophils # Sodium 138 Potassium 3.8 Chloride 94.8 L Carbon Dioxide 30 Anion Gap 17 BUN 36 H Creatinine 1.0 Estimated GFR 55 BUN/Creatinine Ratio 36 Glucose 128 H Calcium 8.7 Magnesium 2.80 H Total Bilirubin AST ALT Alkaline Phosphatase NT-Pro-B Natriuret Pep Total Protein Albumin Albumin/Globulin Ratio Assessment and Plan 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 Will monitor for shoulder hand syndrome and post stroke depression. Former Tob use I69.321 Dysphasia: MATERIALS PLANNING MANAGER to work to improve ability to communicate with strategies and repetition I69.391 Dysphagia: on modified diet, advance as able. EStim, FEES, MBS as needed I69.322 Dysarthria: MATERIALS PLANNING MANAGER to work on improving motor control for speech improvement I69.312 Visuospatial deficit after CVA: monitor right side, cue towards right, scanning strategies I10 Hypertension: Cont atenolol, monitor BP and adjust as needed I50.9 Heart Failure: BNP normal, lasix restarted at low dose J44.9 COPD: On home O2, continue inhalers/nebs and adjust as needed, monitor for worsening. CXR in AM, was being treated with Abx prior to CVA and did not finish, wheezing now E86.0 Dehydration: 1L NS, encouraged PO intake, monitor Z73.6 ADL dysfunction: OT will work on improving ability to perform ADLs (including assistive devices) to increase independence and decrease caregiver burden and improve functional transfers and mobility training. R26.2 Difficulty walking: PT will work on gait training and proper use of assistive devices and advance as appropriate to use of stairs and outside ambulation on uneven surfaces. R26.81 Unsteadiness on feet: PT will work on improving static and dynamic sitting and standing balance as well as proper use of assistive devices to decrease risk of falls. R26.89 Abnormality of gait: PT will work to improve safety and efficiency of gait through neuromotor training and gait training along with instruction on proper use of assistive devices. M62.81 Muscle weakness: PT & OT will work on strengthening exercises to improve functional strength including mixture of closed and open kinetic chain exercises. R53.81 Debility: PT & OT will work on improving overall functional status to improve participation with ADLs, mobility and social involvement. R53.83 Fatigue: PT & OT will work on improving endurance through aerobic exercises and therapeutic activity while monitoring patients tolerance for activity and vital signs as needed. DVT ppx:Lovenox Pain: Continue physical modalities in therapy and pain medications as needed to achieve functional pain control. Sleep: Monitor and address as needed. Bowel: Monitor and address as needed. Medications added for constipation Appetite: Monitor and address as needed. Discharge planning: Pending therapy progress and care plan meeting. Will continue discussion with therapy team, SW, patient and family. Restrictions/ Precautions: Falls, Aspiration, right visual deficit WB status: FWB Functional Hx: ADLs: Independent Cognition: Independent Mobility: No AD Barriers to Discharge: Decreased mobility and ability to perform self care, balance deficits, weakness Estimated Length of Stay: 14-21 days Discharge Destination: Home with family
[2018-08-02] MEDS: DUONEB *Not for PRN Use IH SCH ×4 (01:07→19:42)
[2018-08-02 08:51] LABS: BUN/Creatinine Ratio 32; Blood Urea Nitrogen 29 mg/dL (7-17); Calcium 8.5 mg/dL (8.4-10.2); Hemolysis Index 7
[2018-08-02] MEDS: LASIX PO SCH (10:49)
[2018-08-02] MEDS: ASPIRIN PO SCH (10:49)
[2018-08-02] MEDS: LOVENOX SUB-Q SCH (10:49)
[2018-08-02] MEDS: MIRALAX 3350 PO SCH (10:49)
[2018-08-02] MEDS: TENORMIN PO SCH (10:50)
[2018-08-02] MEDS: PROVENTIL IH PRN (11:38)
[2018-08-02] MEDS: NORCO 5/325 PO PRN (14:56)
--- NOTE | 2018-08-02 17:56 | IRU Plan of Care ---
Interdisciplinary Plan of Care - IP IRU INTERDISCIPLINARY PLAN: [facility] Inpatient Rehab Unit Plan of Care IRU Interdisciplinary Care Plan Start: 07/30/18 18:27 Freq: Admission then PRN Status: Complete Protocol: Document 07/30/18 22:16 DAREN (Rec: 07/30/18 22:20 DAREN [id number]) Interdisciplinary Problem List Interdisciplinary Problem List Interdisciplinary Problem List Impaired Bathing/Grooming, Query Text:Answers will Trigger Problems Impaired Dressing,Impaired and Outcomes on Worklist. Mobility,Impaired Transfers, Impaired Expression,Impaired Safety,Medications Education, Impaired Oxygenation IRU Interdisciplinary Care Plan Therapy Services Therapy Services Will Include: Physical Therapy,Occupational Query Text:Patient will be seen for a Therapy,Speech Therapy minimum of 3 hours of daily therapy 5 out of 7 days a week. Therapy intensity may be adjusted within a 7 consecutive day period to effectively serve the individual needs of the patient. Treatment Frequency/Intensity/Duration Treatment Frequency Treatment Intensity Treatment Duration Problem Area: Eating/Swallowing Eating/Swallowing Outcomes Eating/Swallowing Interventions Problem Area: Bathing/Grooming Bathing/Grooming Outcomes Improve Sargent w/ Grooming Bathing/Grooming Interventions ADL Training,Use of Assistive Devices,Therapeutic Exercise, Therapeutic Activity, Neuromuscular Re-Education, Patient/Caregiver Education Problem Area: Dressing Dressing Outcomes Improve Sargent w/ UB Dressing Dressing Interventions ADL Training,Use of Assistive Devices,Neuromuscular Re- Education,Therapeutic Exercise ,Balance Work,Modalities, Patient/Caregiver Education Problem Area: Mobility Mobility Outcomes Improve Sargent w/ Bed Mobility,Improve Sargent w/ Ambulation Mobility Interventions Therapeutic Exercise, Neuromuscular Re-Ed.,Visual/ Perceptual Training,Activity Tolerance Work,Modalities,Use of Assistive Devices,Patient/ Caregiver Education,Bed Mobility Work,Gait Training, Household Mobility Work Problem Area: Transfers Transfers Outcomes Improve Sargent w/ Bed Transfers,Improve Sargent w/ Toilet Transfers Transfers Interventions Transfer Training,Therapeutic Exercise,Neuromuscular Re- Education,Visual/Perceptual Training,Activity Tolerance Work,Modalities,Use of Assistive Devices,Patient/ Caregiver Education Problem Area: Bowel/Bladder Managment Bowel/Bladder Outcomes Bowel/Bladder Interventions Problem Area: Toileting Toileting Outcomes Improve Sargent w/ Toileting Toileting Interventions ADL Training,Balance Work,Use of Assistive Devices,Patient/ Caregiver Education Problem Area: Nutrition Nutrition Outcomes Understand and Comply w/ Diet Nutrition Interventions Nutritional Counseling,Fluid Management,Patient/Caregiver Education Problem Area: Comprehension Comprehension Outcomes Improve Comprehension,Follow Commands,Improve Communication Comprehension Interventions Use of Gestures,Patient/ Caregiver Education Problem Area: Expression Expression Outcomes Improve Intelligibility, Improve Vocal Quality,Improve Verbalization Expression Interventions Expressive Language,Writing Tasks,Augmentative Communication,Patient/ Caregiver Education Problem Area: Problem Solving Problem Solving Outcomes Problem Solving Interventions Problem Area: Memory Memory Outcomes Memory Interventions Problem Area: Pain Management Pain Management Outcomes Pain Management Interventions Problem Area: Knowledge Deficits Knowledge Deficits Outcomes Knowledge Deficits Interventions Problem Area: Skin/Tissue Integrity Skin/Tissue Integrity Outcomes Skin/Tissue Integrity Interventions Problem Area: Social Interaction Social Interaction Outcomes Exhibit Appropriate Social Skills Social Interaction Interventions Social Skills Training,Stress Management Problem Area: Adjustment to Disability Adjustment to Disability Outcomes Exhibit/Verbalize Decreased Depression,Exhibit/Verbalize Decreased Anxiety,Demonstrated Improved Motivation/ Participation Adjustment to Disability Interventions Resource Education Problem Area: Discharge Concerns Discharge Concerns Outcomes Discharge w/ Necessary Equipment,Have Home Health/ Outpatient Services Discharge Concerns Interventions Discharge Planning,Equipment Assessment, Acquisition and Placement,Family/Caregiver Conference,Patient/Family/ Caregiver Counseling,Family/ Caregiver Training Problem Area: Community Reintegration Community Reintegration Outcomes Demonstrate Understanding of Community Resources Community Reintegration Interventions Home Evaluation,Activity Tolerance Work,Leisure Activity Problem Area: Home Management Home Management Outcomes Improve Sargent w/ Home Management Home Management Interventions Activity Tolerance Work, Leisure Skills Development Problem Area: Safety Safety Outcomes Provide Safe Environment, Perform Selfcare Safely, Demonstrate Good Safety w/ Transfers/Mobility Safety Interventions Identify Fall Risk,[place] Pt. to Environment,Reduce Environmental Hazards,Neuro Check Assessment,Implement Mechanical Devices, i.e. Chair Alarm (Post Fall Update),Re- Educate Patient/Caregiver for Safety (Post Fall Update) Problem Area: Medication Education Medication Education Outcomes Patient/Caregiver will Verbalize Understanding of Medications Medication Education Interventions Explain Administration/Side Effects/Interactions Problem Area: Diabetes Education Diabetes Education Outcomes Diabetes Education Interventions Problem Area: Oxygenation Oxygenation Outcomes Maintain Adequate Oxygenation Oxygenation Interventions Assess Respiratory Status, Monitor Diagnostic Results, Encourage Coughing and Deep Breathing,Elevate Head of Bed Problem Area: Cardiovascular Cardiovascular Outcomes Cardiovascular Interventions Physician Only Medical Prognosis and Rehabilitation Potential (Completed by Physician) IRU Interdisciplinary Care Plan Start: 08/02/18 15:18 Freq: Status: Active Protocol: Document 08/02/18 15:18 TH (Rec: 08/02/18 15:26 TH [id number]) Interdisciplinary Problem List Interdisciplinary Problem List Interdisciplinary Problem List Impaired Eating/Swallowing, Query Text:Answers will Trigger Problems Impaired Bathing/Grooming, and Outcomes on Worklist. Impaired Dressing,Impaired Mobility,Impaired Transfers, Impaired Toileting,Impaired Comprehension,Impaired Expression,Impaired Problem Solving,Impaired Memory, Knowledge Deficits,Discharge Concerns,Impaired Safety, Medications Education,Impaired Oxygenation,Impaired Cardiovascular System IRU Interdisciplinary Care Plan Therapy Services Therapy Services Will Include: Physical Therapy,Occupational Query Text:Patient will be seen for a Therapy,Speech Therapy minimum of 3 hours of daily therapy 5 out of 7 days a week. Therapy intensity may be adjusted within a 7 consecutive day period to effectively serve the individual needs of the patient. Treatment Frequency/Intensity/Duration Treatment Frequency 5X/week Treatment Intensity 3 hours per day Treatment Duration 14-21 days Problem Area: Eating/Swallowing Eating/Swallowing Outcomes Consume Least Restrictive Diet ,Improve Labial ROM/Strength, Improve Lingual ROM/Strength, Feed Self Eating/Swallowing Interventions Dysphagia Training,Optimal Positioning,Compensatory Strategies,Neuromuscular Re- Education,Patient/Caregiver Education Problem Area: Bathing/Grooming Bathing/Grooming Outcomes Improve Sargent w/ Grooming,Improve Sargent w/ Bathing Bathing/Grooming Interventions ADL Training,Use of Assistive Devices,Therapeutic Exercise, Therapeutic Activity, Neuromuscular Re-Education, Patient/Caregiver Education Problem Area: Dressing Dressing Outcomes Improve Sargent w/ UB Dressing Dressing Interventions ADL Training,Use of Assistive Devices,Neuromuscular Re- Education,Therapeutic Exercise ,Balance Work,Modalities, Patient/Caregiver Education Problem Area: Mobility Mobility Outcomes Improve Sargent w/ Bed Mobility,Improve Sargent w/ Ambulation Mobility Interventions Therapeutic Exercise, Neuromuscular Re-Ed.,Visual/ Perceptual Training,Activity Tolerance Work,Modalities,Use of Assistive Devices,Patient/ Caregiver Education,Bed Mobility Work,Gait Training, Household Mobility Work Problem Area: Transfers Transfers Outcomes Improve Sargent w/ Bed Transfers,Improve Sargent w/ Toilet Transfers Transfers Interventions Transfer Training,Therapeutic Exercise,Neuromuscular Re- Education,Visual/Perceptual Training,Activity Tolerance Work,Modalities,Use of Assistive Devices,Patient/ Caregiver Education Problem Area: Bowel/Bladder Managment Bowel/Bladder Outcomes Bowel/Bladder Interventions Problem Area: Toileting Toileting Outcomes Improve Sargent w/ Toileting Toileting Interventions ADL Training,Balance Work,Use of Assistive Devices,Patient/ Caregiver Education Problem Area: Nutrition Nutrition Outcomes Understand and Comply w/ Diet Nutrition Interventions Nutritional Counseling,Fluid Management,Patient/Caregiver Education Problem Area: Comprehension Comprehension Outcomes Improve Comprehension,Follow Commands,Improve Communication Comprehension Interventions Use of Gestures,Patient/ Caregiver Education Problem Area: Expression Expression Outcomes Improve Intelligibility, Improve Vocal Quality,Improve Verbalization Expression Interventions Expressive Language,Writing Tasks,Augmentative Communication,Patient/ Caregiver Education Problem Area: Problem Solving Problem Solving Outcomes Improve Problem Solving Problem Solving Interventions Cognitive Training,Safety Education,Patient/Caregiver Education Problem Area: Memory Memory Outcomes Use Memory Aids Memory Interventions Cognitive Training,Patient/ Caregiver Education Problem Area: Pain Management Pain Management Outcomes Pain Management Interventions Problem Area: Knowledge Deficits Knowledge Deficits Outcomes Verbalize Understanding of S/S of Stroke Knowledge Deficits Interventions Disease/Injury/Sx. Intervention Education,Safety Education Problem Area: Skin/Tissue Integrity Skin/Tissue Integrity Outcomes Skin/Tissue Integrity Interventions Problem Area: Social Interaction Social Interaction Outcomes Exhibit Appropriate Social Skills Social Interaction Interventions Social Skills Training,Stress Management Problem Area: Adjustment to Disability Adjustment to Disability Outcomes Exhibit/Verbalize Decreased Depression,Exhibit/Verbalize Decreased Anxiety,Demonstrated Improved Motivation/ Participation Adjustment to Disability Interventions Resource Education Problem Area: Discharge Concerns Discharge Concerns Outcomes Discharge w/ Necessary Equipment,Have Home Health/ Outpatient Services Discharge Concerns Interventions Discharge Planning,Equipment Assessment, Acquisition and Placement,Family/Caregiver Conference,Patient/Family/ Caregiver Counseling,Family/ Caregiver Training Problem Area: Community Reintegration Community Reintegration Outcomes Community Reintegration Interventions Problem Area: Home Management Home Management Outcomes Improve Sargent w/ Home Management Home Management Interventions Activity Tolerance Work, Leisure Skills Development Problem Area: Safety Safety Outcomes Provide Safe Environment, Perform Selfcare Safely, Demonstrate Good Safety w/ Transfers/Mobility Safety Interventions Identify Fall Risk,[place] Pt. to Environment,Reduce Environmental Hazards,Neuro Check Assessment,Implement Mechanical Devices, i.e. Chair Alarm (Post Fall Update),Re- Educate Patient/Caregiver for Safety (Post Fall Update) Problem Area: Medication Education Medication Education Outcomes Patient/Caregiver will Verbalize Understanding of Medications Medication Education Interventions Explain Administration/Side Effects/Interactions Problem Area: Diabetes Education Diabetes Education Outcomes Diabetes Education Interventions Problem Area: Oxygenation Oxygenation Outcomes Maintain Adequate Oxygenation Oxygenation Interventions Assess Respiratory Status, Monitor Diagnostic Results, Encourage Coughing and Deep Breathing,Elevate Head of Bed Problem Area: Cardiovascular Cardiovascular Outcomes Maintain or Improve Cardiovascular Status Cardiovascular Interventions Assess Vital Signs at least Every 4 hours Physician Only Medical Prognosis and Rehabilitation Potential (Completed by Physician) Patient has a good medical prognosis and good rehabilitation potential. Since admission she has developed ability to abduct her shoulder and fingers which is positive sign. Medical comorbidities are being managed and medications will be added back slowly as they are needed. We are continuing to monitor her re spiratory function, CHF seems stable. Dysphasia and dysphagia are persistant thus far. This plan of care has been developed based on the findings from the pre- admission assessment, post admission physician evaluation, information gathered from the assessments from all therapy disciplines and other pertinent clinicians. The plan of care has been reviewed and discussed in collaboration with the interdisciplinary team. The plan of care will be reviewed and updated at least weekly.
[2018-08-03] MEDS: DUONEB *Not for PRN Use IH SCH ×6 (00:56→20:05)
[2018-08-03] MEDS: MIRALAX 3350 PO SCH (08:11)
[2018-08-03] MEDS: LOVENOX SUB-Q SCH (08:11)
[2018-08-03] MEDS: LASIX PO SCH (08:11)
[2018-08-03] MEDS: ASPIRIN PO SCH (08:11)
[2018-08-03] MEDS: TENORMIN PO SCH (08:11)
[2018-08-03 08:22] LABS: BUN/Creatinine Ratio 23; Blood Urea Nitrogen 21 mg/dL (7-17); Calcium 8.7 mg/dL (8.4-10.2); Hemolysis Index 8
[2018-08-03] MEDS: NORCO 5/325 PO PRN ×2 (10:17→19:21)
--- NOTE | 2018-08-03 18:05 | Progress Note ---
Subjective Date of service: 08/03/18 Principal diagnosis: Left CVA Interval history: 68 YO Female with Obesity, HTN, COPD, CHF presented to ED for evaluation for right sided weakness and decreased responsiveness. 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 EMS was notified and upon arrival the patient was found to have neurologic deficit resulting in a code stroke, found to have Acute CVA and was treated with TPA in ED. She was transferred to the ICU afterwards for monitoring. MRI brain showed acute left basal ganglia/left periventricular white matter infarct and a small acute infarct in the left cerebellum. Prior to transfer she developed abdominal pain and was evaluated and found to have gallstones. After she was medically cleared she was transferred for further rehab. Patient is participating in therapy and making reasonable progress. Taking rest breaks as needed. +BM. Denies pain, palpitations, dyspnea, cough, N/V, or joint pain. Admits to intermittent colicky RUQ pain but not currently. BP and tachycardia better since starting back on antihypertensive. BUN improving. W alking with therapy, on stairs. RUE shoulder abduction and finger abduction improved. Speech about the same. All records, vitals, labs and medications were reviewed. No other issues per patient, nursing or therapy. Objective - Exam Narrative Exam: MUSCULOSKELETAL SPECIALTY EXAM CONSTITUTIONAL: Well developed, well nourished, appropriately groomed obese. RIGHT hand dominant. RESPIRATORY: Bilateral wheeze to ascultation, no increased work of breathing, on 2L O2 at home 16/12 CARDIOVASCULAR: Regular Rhythm,tachycardic, no swelling, edema or tenderness in BUE or BLE. All extremities warm. GI: + bowel sounds, soft, NTTP, nondistended. INTEGUMENTARY: Normal, no lesion, rash, masses or bruising noted in extremities. MUSCULOSKELETAL: BUE and BLE normal without defect, crepitus, subluxation, effusion, arthritic ch anges or TTP. SA EF WE EE FF FA HF KE ADF EHL APF R 4-/5 4-/5 4-/5 4-/5 3/5 4-/5 4-/5 4-/5 4-/5 4-/5 4-/5 L 5/5 5/5 5/5 5/5 5/5 5 /5 5/5 5/5 5/5 5/5 5/5 ROM decreased on right, normal on left Tone normal NEURO: CN II - XII grossly intact except: visual field decreased on right, right facial droop, decreased shoulder shrug and head rotation on right Sensation intact in all extremities without extinction. No tremor noted in 4 extremities. Naming and repetition impaired. Right inattention (listed as left in error in prior note) Follows 1 step commands. Dysphasia and Dysarthria present Dysphagia POSTURE and GAIT: Sitting posture good. Balance appears reasonable in bed, decreased with standing. Gait deferred until seen with therapy. PSYCH: Alert, oriented x3, affect appears flat. Insight appears intact. - Constitutional Vitals: Vital Signs - 12hr 08/03/18 08/03/18 08/03/18 06:16 06:31 07:38 Temperature 36.7 C Pulse Rate 97 H Pulse Rate [ 97 H 92 H Bilateral Throughout] Respiratory 18 Rate Respiratory 26 H 20 Rate [Bilateral Throughout] Blood Pressure 136/72 Blood Pressure [Left] O2 Sat by Pulse 94 Oximetry 08/03/18 08/03/18 08/03/18 10:00 11:17 14:00 Temperature 36.5 C Pulse Rate 92 H Pulse Rate [ 88 Bilateral Throughout] Respiratory 18 Rate Respiratory 17 Rate [Bilateral Throughout] Blood Pressure Blood Pressure 116/81 [Left] O2 Sat by Pulse 97 97 Oximetry 08/03/18 08/03/18 14:59 15:42 Temperature Pulse Rate 95 H Pulse Rate [ 88 Bilateral Throughout] Respiratory 18 Rate Respiratory 17 Rate [Bilateral Throughout] Blood Pressure Blood Pressure 137/74 [Left] O2 Sat by Pulse 97 Oximetry - Allied health notes Allied health notes reviewed: nursing, PT, ST, OT, RT FIMS assessment as documented by PT/OT/ST: Grooming Patient cleans teeth/dentures: No Patient santos/brushes hair: Yes Patient washes, rinses and Yes dries face: Patient washes, rinses and Yes dries hands: Patient shaves: No Patient performs (no make-up/ 3/4 (75%) shaving): Grooming FIM Score 4. Minimal Assistance (Patient = 75% or more. Needs touching.) Toileting Toileting Device Bedside Commode,Commode over Toilet Patient able to: Adjust clothes before,Clean self,Adjust clothes after Patient able to perform: 3/3 (100%) Toileting FIM Score 5. Supv./Set-Up (Needs stand-by, set-up, applying prosth/orth.) Social interaction/Memory/Problem solving Social Interaction FIM Score 6. Mod. [place] (Mostly appropriate. May need meds. No supv.) Memory FIM Score 3. Moderate Assistance (Recognizes and remembers 50-74%.) Problem Solving FIM Score 3. Moderate Assistance (Solves routine problems 50-74%.) Transfers Mode of Locomotion: Walking Bed/Chair/Wheelchair Transfers 4. Minimal Assistance (Patient = 75% or more. FIM Score Needs touching.) Toilet Transfers FIM Score 4. Minimal Assistance (Patient = 75% or more. Needs touching.) Patient transferred to: Shower Shower Transfers FIM Score 4. Minimal Assistance (Patient = 75% or more. Needs touching.) Locomotion- Stairs Device used on Stairs Handrail/s Number of Stairs Ascended/ 12 Descended Patient used handrail/support: Yes Stairs FIM Score 4. Minimal Assistance (Patient = 75% or more, touching. 12-14 stairs.) Locomotion- walk/wheelchair Most Frequent Mode of Walking Locomotion: Ambulation Distance 170 Walking FIM Score 4. Minimal Assistance (Patient = 75% or more. Minimum of 150 ft.) Wheelchair Propulsion Distance 170 Wheelchair FIM Score 5. Supervision (Minimum 150 ft. supv./cues or 50 ft. independently.) Eating Eating FIM Score 5. Supervision/Set-Up (Needs help w/ containers, cutting meat, etc.) Dressing-Upper body Patient retrieves clothing No items: Patient applies/removes UE n/a prosthesis or orthosis: Upper Body Dressing FIM Score 4. Minimal Assistance (Patient = 75% or more. Needs touching.) Dressing-lower body Patient retrieves clothing No items: Patient applies/removes LE n/a prosthesis or orthosis: Lower Body Dressing FIM Score 4. Minimal Assistance (Patient = 75% or more. Needs touching.) - Labs CBC & Chem 7: 08/01/18 06:55 08/03/18 07:21 Labs: Laboratory Results - last 72 hr 08/01/18 08/01/18 08/02/18 06:55 06:55 07:58 WBC 9.7 RBC 4.91 Hgb 14.3 Hct 42.4 MCV 86 MCH 29 MCHC 34 RDW 15.1 Plt Count 117 L Lymph % (Auto) 4.3 L Kings % (Auto) 7.9 H Eos % (Auto) 1.3 Baso % (Auto) 0.2 Lymph # 0.4 L Kings # 0.8 Eos # 0.1 Baso # 0.0 Seg Neutrophils % 86.3 H Seg Neutrophils # 8.4 H Sodium 138 141 Potassium 3.8 3.9 Chloride 94.8 L 99.7 Carbon Dioxide 30 29 Anion Gap 17 16 BUN 36 H 29 H Creatinine 1.0 0.9 Estimated GFR 55 > 60 BUN/Creatinine Ratio 36 32 Glucose 128 H 115 H Calcium 8.7 8.5 Magnesium 2.80 H 08/03/18 07:21 WBC RBC Hgb Hct MCV MCH MCHC RDW Plt Count Lymph % (Auto) Kings % (Auto) Eos % (Auto) Baso % (Auto) Lymph # Kings # Eos # Baso # Seg Neutrophils % Seg Neutrophils # Sodium 141 Potassium 4.0 Chloride 103.5 Carbon Dioxide 31 H Anion Gap 11 BUN 21 H Creatinine 0.9 Estimated GFR > 60 BUN/Creatinine Ratio 23 Glucose 123 H Calcium 8.7 Magnesium Assessment and Plan 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 Will monitor for shoulder hand syndrome and post stroke depression. Former Tob use I69.321 Dysphasia: HIDE SORTER to work to improve ability to communicate with strategies and repetition I69.391 Dysphagia: on modified diet, advance as able. EStim, FEES, MBS as needed I69.322 Dysarthria: HIDE SORTER to work on improving motor control for speech improvement I69.312 Visuospatial deficit after CVA: monitor right side, cue towards right, scanning strategies I10 Hypertension: Cont atenolol, monitor BP and adjust as needed I50.9 Heart Failure: BNP normal, lasix restarted at low dose J44.9 COPD: On home O2, continue inhalers/nebs and adjust as needed, monitor for worsening. CXR in AM, was being treated with Abx prior to CVA and did not finish, wheezing now E86.0 Dehydration: 1L NS, encouraged PO intake, monitor Z73.6 ADL dysfunction: OT will work on improving ability to perform ADLs (including assistive devices) to increase independence and decrease caregiver burden and improve functional transfers and mobility training. R26.2 Difficulty walking: PT will work on gait training and proper use of assistive devices and advance as appropriate to use of stairs and outside ambulation on uneven surfaces. R26.81 Unsteadiness on feet: PT will work on improving static and dynamic sitting and standing balance as well as proper use of assistive devices to decrease risk of falls. R26.89 Abnormality of gait: PT will work to improve safety and efficiency of gait through neuromotor training and gait training along with instruction on proper use of assistive devices. M62.81 Muscle weakness: PT & OT will work on strengthening exercises to improve functional strength including mixture of closed and open kinetic chain ex ercises. R53.81 Debility: PT & OT will work on improving overall functional status to improve participation with ADLs, mobility and social involvement. R53.83 Fatigue: PT & OT will work on improving endurance through aerobic exercises and therapeutic activity while monitoring patients tolerance for activity and vital signs as needed. DVT ppx:Lovenox Pain: Continue physical modalities in therapy and pain medications as needed to achieve functional pain control. Sleep: Monitor and address as needed. Bowel: Monitor and address as needed. Medications added for constipation Appetite: Monitor and address as needed. Discharge planning: Pending therapy progress and care plan meeting. Will co ntinue discussion with therapy team, SW, patient and family. Restrictions/ Precautions: Falls, Aspiration, right visual deficit WB status: FWB Functional Hx: ADLs: Independent Cognition: Independent Mobility: No AD Barriers to Discharge: Decreased mobility and ability to perform self care, mariela nce deficits, weakness Estimated Length of Stay: 14-21 days Discharge Destination: Home with family
[2018-08-04] MEDS: DUONEB *Not for PRN Use IH SCH ×4 (04:56→20:10)
[2018-08-04] MEDS: PROVENTIL IH PRN (04:56)
[2018-08-04] MEDS: NORCO 5/325 PO PRN ×2 (04:59→18:39)
[2018-08-04] MEDS: LOVENOX SUB-Q SCH (07:49)
[2018-08-04] MEDS: ASPIRIN PO SCH (07:49)
[2018-08-04] MEDS: LASIX PO SCH (07:49)
[2018-08-04] MEDS: TENORMIN PO SCH (07:49)
[2018-08-04] MEDS: MIRALAX 3350 PO SCH (07:49)
[2018-08-04 08:05] LABS: Hematocrit 38.8 % (30.3-42.9); Hemoglobin 12.8 gm/dl (10.1-14.3); Mean Corpuscular HGB Conc 33 % (30-34); Mean Corpuscular Volume 87 fl (79-97); Platelet Count 112 K/mm3 (140-440); Red Blood Count 4.45 M/mm3 (3.65-5.03); Red Cell Distribution Width 14.6 % (13.2-15.2)
[2018-08-04 08:34] LABS: BUN/Creatinine Ratio 19; Blood Urea Nitrogen 15 mg/dL (7-17); Calcium 8.9 mg/dL (8.4-10.2); Hemolysis Index 0
--- NOTE | 2018-08-04 11:49 | Progress Note ---
Subjective Date of service: 08/04/18 Principal diagnosis: Left CVA Interval history: 68 YO Female with Obesity, HTN, COPD, CHF presented to ED for evaluation for right sided weakness and decreased responsiveness. 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 EMS was notified and upon arrival the patient was found to have neurologic deficit resulting in a code stroke, found to have Acute CVA and was treated with TPA in ED. She was transferred to the ICU afterwards for monitoring. MRI brain showed acute left basal ganglia/left periventricular white matter infarct and a small acute infarct in the left cerebellum. Prior to transfer she developed abdominal pain and was evaluated and found to have gallstones. After she was medically cleared she was transferred for further rehab. Patient is participating in therapy and making reasonable progress. Taking rest breaks as needed. +BM. Denies pain, palpitations, dyspnea, cough, N/V, or joint pain. Admits to intermittent colicky RUQ pain but not currently. BP and tachycardia better since starting back on antihypertensive. BUN and Mg normaliz ed. Plts still low - normal prior to transfer to rehab. Walking with therapy, on stairs. RUE shoulder abduction and finger abduction improved. Speech about the same. Discussed in Team Conference - improving with mobility and ADLs. Lagging with ABSORPTION AND ADSORPTION ENGINEER. May end up being ready for discharge sooner than expected. Asked therapy to challenge her with higher level activities to ensure she is able to perform at the level she needs to be safe at home. Will consult IM for management of HTN, CHF, COPD, Electrolyte abnormalities and thrombocytopenia - appreciate their assistance. Dr Solis has agreed to fill in for me starting Tuesday 08/08 while I am at conference - appreciate his assistance. All records, vitals, labs and medications were reviewed. No other issues per patient, nursing or therapy. Objective - Exam Narrative Exam: MUSCULOSKELETAL SPECIALTY EXAM CONSTITUTIONAL: Well developed, well nourished, appropriately groomed obese. RIGHT hand dominant. RESPIRATORY: Bilateral wheeze to ascultation, no increased work of breathing, on 2L O2 at home 16/12 CARDIOVASCULAR: Regular Rhythm,tachycardic, no swelling, edema or tenderness in BUE or BLE. All extremities warm. GI: + bowel sounds, soft, NTTP, nondistended. INTEGUMENTARY: Normal, no lesion, rash, masses or bruising noted in extremities. MUSCULOSKELETAL: BUE and BLE normal without defect, crepitus, subluxation, effusion, arthritic changes or TTP. SA EF WE EE FF FA HF KE ADF EHL APF R 4/5 4/5 4/5 4/5 4/5 4/5 4/5 4/5 4/5 4/5 4/5 L 5/5 5/5 5/5 5/5 5/5 5 /5 5/5 5/5 5/5 5/5 5/5 ROM decreased on right but improving, normal on left Tone normal NEURO: CN II - XII grossly intact except: visual field decreased on right, right facial droop, decreased shoulder shrug and head rotation on right Sensation intact in all extremities without extinction. No tremor noted in 4 extremities. Naming and repetition impaired. Right inattention Follows 1 step commands. Dysphasia and Dysarthria present Dysphagia POSTURE and GAIT: Sitting posture good. Balance appears reasonable. Gait with RW fairly steady with no LOB when I observed. PSYCH: Alert, oriented x3, affect appears flat. Insight appears intact. - Constitutional Vitals: Vital Signs - 12hr 08/04/18 08/04/18 08/04/18 00:22 00:26 03:39 Temperature 36.9 C 36.3 C L Pulse Rate 92 H 86 Pulse Rate [ Bilateral Throughout] Pulse Rate [ Bilateral] Respiratory 17 20 20 Rate Respiratory Rate [Bilateral Throughout] Respiratory Rate [Bilateral ] Blood Pressure 137/79 129/74 O2 Sat by Pulse 96 98 Oximetry 08/04/18 08/04/18 08/04/18 04:58 05:06 07:35 Temperature 36.6 C Pulse Rate 63 Pulse Rate [ 89 91 H Bilateral Throughout] Pulse Rate [ Bilateral] Respiratory 30 H Rate Respiratory 21 17 Rate [Bilateral Throughout] Respiratory Rate [Bilateral ] Blood Pressure 146/82 O2 Sat by Pulse 83 L Oximetry 08/04/18 08/04/18 09:46 09:47 Temperature Pulse Rate Pulse Rate [ 88 Bilateral Throughout] Pulse Rate [ 88 Bilateral] Respiratory Rate Respiratory 16 Rate [Bilateral Throughout] Respiratory 16 Rate [Bilateral ] Blood Pressure O2 Sat by Pulse 94 Oximetry - Allied health notes Allied health notes reviewed: nursing, PT, ST, OT, RT FIMS assessment as documented by PT/OT/ST: Grooming Patient cleans teeth/dentures: No Patient santos/brushes hair: Yes Patient washes, rinses and Yes dries face: Patient washes, rinses and Yes dries hands: Patient shaves: No Patient performs (no make-up/ 3/4 (75%) shaving): Grooming FIM Score 4. Minimal Assistance (Patient = 75% or more. Needs touching.) Toileting Toileting Device Bedside Commode,Commode over Toilet Patient able to: Adjust clothes before,Clean self,Adjust clothes after Patient able to perform: 3/3 (100%) Toileting FIM Score 5. Supv./Set-Up (Needs stand-by, set-up, applying prosth/orth.) Social interaction/Memory/Problem solving Social Interaction FIM Score 6. Mod. [place] (Mostly appropriate. May need meds. No supv.) Memory FIM Score 3. Moderate Assistance (Recognizes and remember s 50-74%.) Problem Solving FIM Score 3. Moderate Assistance (Solves routine problems 50-74%.) Transfers Mode of Locomotion: Walking Bed/Chair/Wheelchair Transfers 4. Minimal Assistance (Patient = 75% or more. FIM Score Needs touching.) Toilet Transfers FIM Score 4. Minimal Assistance (Patient = 75% or more. Needs touching.) Patient transferred to: Shower Shower Transfers FIM Score 4. Minimal Assistance (Patient = 75% or more. Needs touching.) Locomotion- Stairs Device used on Stairs Handrail/s Number of Stairs Ascended/ 12 Descended Patient used handrail/support: Yes Stairs FIM Score 4. Minimal Assistance (Patient = 75% or more, touching. 12-14 stairs.) Locomotion- walk/wheelchair Most Frequent Mode of Walking Locomotion: Ambulation Distance 170 Walking FIM Score 4. Minimal Assistance (Patient = 75% or more. Minimum of 150 ft.) Wheelchair Propulsion Distance 170 Wheelchair FIM Score 5. Supervision (Minimum 150 ft. supv./cues or 50 ft. independently.) Eating Eating FIM Score 5. Supervision/Set-Up (Needs help w/ containers, cutting meat, etc.) Dressing-Upper body Patient retrieves clothing No items: Patient applies/removes UE n/a prosthesis or orthosis: Upper Body Dressing FIM Score 4. Minimal Assistance (Patient = 75% or more. Needs touching.) Dressing-lower body Patient retrieves clothing No items: Patient applies/removes LE n/a prosthesis or orthosis: Lower Body Dressing FIM Score 4. Minimal Assistance (Patient = 75% or more. Needs touching.) - Labs CBC & Chem 7: 08/04/18 07:46 08/04/18 07:46 Labs: Laboratory Results - last 72 hr 08/02/18 08/03/18 08/04/18 07:58 07:21 07:46 WBC 4.9 RBC 4.45 Hgb 12.8 Hct 38.8 MCV 87 MCH 29 MCHC 33 RDW 14.6 Plt Count 112 L Sodium 141 141 Potassium 3.9 4.0 Chloride 99.7 103.5 Carbon Dioxide 29 31 H Anion Gap 16 11 BUN 29 H 21 H Creatinine 0.9 0.9 Estimated GFR > 60 > 60 BUN/Creatinine Ratio 32 23 Glucose 115 H 123 H Calcium 8.5 8.7 Magnesium 08/04/18 07:46 WBC RBC Hgb Hct MCV MCH MCHC RDW Plt Count Sodium 141 Potassium 3.8 Chloride 101.3 Carbon Dioxide 31 H Anion Gap 13 BUN 15 Creatinine 0.8 Estimated GFR > 60 BUN/Creatinine Ratio 19 Glucose 117 H Calcium 8.9 Magnesium 2.20 Assessment and Plan 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 Will monitor for shoulder hand syndrome and post stroke depression. Former Tob use I69.321 Dysphasia: ABSORPTION AND ADSORPTION ENGINEER to work to improve ability to communicate with strategies and repetition I69.391 Dysphagia: on modified diet, advance as able. EStim, FEES, MBS as needed I69.322 Dysarthria: ABSORPTION AND ADSORPTION ENGINEER to work on improving motor control for speech improvement I69.312 Visuospatial deficit after CVA: monitor right side, cue towards right, scanning strategies I10 Hypertension: Cont atenolol, monitor BP and adjust as needed I50.9 Heart Failure: BNP normal, lasix restarted at low dose J44.9 COPD: On home O2, continue inhalers/nebs and adjust as needed, monitor for worsening. CXR in AM, was being treated with Abx prior to CVA and did not finish, wheezing now Z73.6 ADL dysfunction: OT will work on improving ability to perform ADLs (including assistive devices) to increase independence and decrease caregiver b urden and improve functional transfers and mobility training. R26.2 Difficulty walking: PT will work on gait training and proper use of assistive devices and advance as appropriate to use of stairs and outside ambulation on uneven surfaces. R26.81 Unsteadiness on feet: PT will work on improving static and dynamic sitting and standing balance as well as proper use of assistive devices to decrease risk of falls. R26.89 Abnormality of gait: PT will work to improve safety and efficiency of gait through neuromotor training and gait training along with instruction on proper use of assistive devices. M62.81 Muscle weakness: PT & OT will work on strengthening exercises to improve functional strength including mixture of closed and open kinetic chain exercises. R53.81 Debility: PT & OT will work on improving overall functional status to improve participation with ADLs, mobility and social involvement. R53.83 Fatigue: PT & OT will work on improving endurance through aerobic exercises and therapeutic activity while monitoring patients tolerance for activity and vital signs as needed. DVT ppx:Lovenox Pain: Continue physical modalities in therapy and pain medications as needed to achieve functional pain control. Sleep: Monitor and address as needed. Bowel: Monitor and address as needed. Medications added for constipation Appetite: Monitor and address as needed. Discharge planning: Pending therapy progress and care plan meeting. Will continue discussion with therapy team, SW, patient and family. Restrictions/ Precautions: Falls, Aspiration, right visual deficit WB status: FWB Functional Hx: ADLs: Independent Cognition: Independent Mobility: No AD Barriers to Discharge: Decreased mobility and ability to perform self care, balance deficits, weakness, right visual field deficit Estimated Length of Stay: 14-21 days Discharge Destination: Home with family
[2018-08-05] MEDS: DUONEB *Not for PRN Use IH SCH ×4 (03:00→20:47)
[2018-08-05] MEDS: LASIX PO SCH (08:19)
[2018-08-05] MEDS: ASPIRIN PO SCH (08:19)
[2018-08-05] MEDS: TENORMIN PO SCH (08:19)
[2018-08-05] MEDS: LOVENOX SUB-Q SCH (08:20)
[2018-08-05 08:29] LABS: BUN/Creatinine Ratio 15; Blood Urea Nitrogen 12 mg/dL (7-17); Calcium 8.9 mg/dL (8.4-10.2); Hemolysis Index 6; Prealbumin 0.137 g/L (0.200-0.400)
--- NOTE | 2018-08-05 11:24 | Consultation ---
History of Present Illness - Reason for Consult Consult date: 08/05/18 Medical management hypertension, COPD,CHF Requesting physician: PAUL RIVERA III - History of Present Illness Patient is 68 yo with history of hypertension, CHF, COPD, dyslipidemia,obesity,recent acute ischemic stroke. She was admitted 07/23/18 and discharged to rehab 07/30/18 with main diagnosis of acute ischemic stroke. [facility] for management of comorbidities COPD, CHF, hypertension. currently no chest pain, no shortness of breath. she has dysarthria Past History Past Medical History: COPD, heart failure, hypertension, stroke Past Surgical History: No surgical history Social history: , lives with family, full code, other (former smoker, denies alcohol and illicit drug abuse) Family history: cancer, hypertension Medications and Allergies Allergies Allergy/AdvReac Type Severity Reaction Status Date / Time No Known Allergies Allergy Verified 07/18/16 13:05 Home Medications Medication Instructions Recorded Confirmed Last Taken Type Furosemide [Lasix TAB] 40 mg PO DAILY 07/18/16 07/30/18 07/18/16 History Potassium Chloride [K-Dur] 10 meq PO DAILY 07/18/16 07/30/18 07/18/16 History Albuterol Sulfate [Ventolin HFA] 1 puff IH PRN PRN 07/23/18 07/30/18 Unknown History Atenolol [Tenormin] 100 mg PO DAILY 07/23/18 07/30/18 Unknown History Lisinopril [Zestril] 40 mg PO DAILY 07/23/18 07/30/18 Unknown History Loratadine [Claritin] 10 mg PO DAILY 07/23/18 07/30/18 Unknown History Omeprazole 40 mg PO DAILY 07/23/18 07/30/18 Unknown History ALBUTEROL NEB's [Proventil 0.083% 2.5 mg IH Q4HRT PRN nebu 07/30/18 07/30/18 Unknown Rx NEBS] Acetaminophen [Acetaminophen TAB] 650 mg PO Q6H PRN tablet 07/30/18 07/30/18 Unknown Rx Aspirin [Aspirin TAB] 325 mg PO QDAY #30 tablet 07/30/18 07/30/18 Unknown Rx AtorvaSTATin [Lipitor] 40 mg PO QHS #30 tablet 07/30/18 07/30/18 Unknown Rx Bisacodyl [Dulcolax suppos] 10 mg NE QDAY PRN supp.rect 07/30/18 07/30/18 Unknown Rx HYDROcodone/APAP 5-325 [[place] 1 each PO Q4H PRN tablet 07/30/18 07/30/18 Unknown Rx 5-325 mg TAB] Ipratropium/Albuterol Sulfate 1 ampul IH Q6HRT ampul.neb 07/30/18 07/30/18 Unknown Rx [DUONEB *Not for PRN Use*] Active Meds: Active Medications Acetaminophen (Tylenol) 650 mg PO Q4H PRN PRN Reason: Pain MILD(1-3)/Fever >100.5/FRITZ Acetaminophen/Hydrocodone Bitart ([place] 5/325) 1 each PO Q4H PRN PRN Reason: Pain, Moderate (4-6) Last Admin: 08/04/18 18:39 Dose: 1 each Documented by: Albuterol (Proventil) 2.5 mg IH Q4HRT PRN PRN Reason: Shortness Of Breath Last Admin: 08/04/18 04:56 Dose: 2.5 mg Documented by: Albuterol/Ipratropium (Duoneb *Not For Prn Use*) 1 ampul IH TIDRT [facility] Last Admin: 08/05/18 09:08 Dose: 1 ampul Documented by: Aspirin (Aspirin) 325 mg PO QDAY [facility] Last Admin: 08/05/18 08:19 Dose: 325 mg Documented by: Atenolol (Tenormin) 25 mg PO QDAY [facility] Last Admin: 08/05/18 08:19 Dose: 25 mg Documented by: Atorvastatin Calcium (Lipitor) 40 mg PO QHS [facility] Last Admin: 08/04/18 21:56 Dose: 40 mg Documented by: Bisacodyl (Dulcolax) 10 mg NE QDAY PRN PRN Reason: Constipation unrelieved by MOM Enoxaparin Sodium (Lovenox) 40 mg SUB-Q QDAY [facility] Last Admin: 08/05/18 08:20 Dose: 40 mg Documented by: Furosemide (Lasix) 20 mg PO QDAY [facility] Last Admin: 08/05/18 08:19 Dose: 20 mg Documented by: Magnesium Hydroxide (Milk Of Magnesia) 30 ml PO Q4H PRN PRN Reason: Constipation Last Admin: 08/05/18 08:21 Dose: 30 ml Documented by: Review of Systems All systems: negative (No chest pain, no fever, no cough. All other systems reviewed and are negative) Exam - Physical Exam Narrative exam: GEN: Not in acute distress, lying in bed HEENT: Normocephalic, atraumatic, Neck: supple, No JVD Lungs: Clear to auscultation bilat, no crackles, no wheeze Abd:soft, non tender, non distended, normal bowel sounds Ext: No edema, no clubbing, no cyanosis Neuro:Awake,alert,oriented X 3, Dysarthria, moves all ext - Constitutional Vitals: Temp Pulse Resp BP Pulse Ox 99 F 96 H 20 127/67 96 08/05/18 08:12 08/05/18 08:19 08/05/18 08:09 08/05/18 08:19 08/05/18 08:09 Results - Labs CBC & Chem 7: 08/06/18 06:50 08/06/18 06:50 Labs: Abnormal lab results 08/05/18 Range/Units 07:43 Glucose 117 H (65-100) mg/dL Prealbumin 0.137 L (0.200-0.400) g/L Assessment and Plan Acute ischemic stroke, recent. Admitted to Rehab Dr. Rivera, attending, managing Hypertension continue Atenolol 25mg po daily, will adjust dose as per response She was on Atenolol 100mg po daily Hyperlipidemia On statin COPD stable Duoneb Chronic CHF Continiue lasix, atenolol Full code status Thanks for consulting us. Will follow
[2018-08-05] MEDS: NORCO 5/325 PO PRN ×2 (14:46→20:06)
[2018-08-06] MEDS: DUONEB *Not for PRN Use IH SCH ×5 (02:21→19:19)
[2018-08-06 07:45] LABS: Basophils % (Auto) 0.3 % (0.0-1.8); Eosinophils # (Auto) 0.1 K/mm3 (0.0-0.4); Eosinophils % (Auto) 2.8 % (0.0-4.3); Hemoglobin 12.4 gm/dl (10.1-14.3); Lymphocytes # (Auto) 0.3 K/mm3 (1.2-5.4); Lymphocytes % (Auto) 6.6 % (13.4-35.0); Mean Corpuscular HGB Conc 34 % (30-34); Mean Corpuscular Volume 87 fl (79-97); Monocytes # (Auto) 0.4 K/mm3 (0.0-0.8); Monocytes % (Auto) 9.3 % (0.0-7.3); Platelet Count 113 K/mm3 (140-440); Red Blood Count 4.23 M/mm3 (3.65-5.03); Red Cell Distribution Width 14.9 % (13.2-15.2)
[2018-08-06 07:49] LABS: BUN/Creatinine Ratio 14; Blood Urea Nitrogen 11 mg/dL (7-17); Calcium 8.8 mg/dL (8.4-10.2); Hemolysis Index 3
[2018-08-06] MEDS: LASIX PO SCH (11:18)
[2018-08-06] MEDS: TENORMIN PO SCH (11:20)
[2018-08-06] MEDS: LOVENOX SUB-Q SCH (11:20)
[2018-08-06] MEDS: ASPIRIN PO SCH (11:21)
[2018-08-06] MEDS: NORCO 5/325 PO PRN ×2 (13:19→22:06)
[2018-08-06] MEDS ORDERED: TENORMIN PO ONE (15:18)
--- NOTE | 2018-08-06 16:33 | Progress Note ---
Subjective Date of service: 08/06/18 Principal diagnosis: Left CVA Interval history: 68 YO Female with Obesity, HTN, COPD, CHF presented to ED for evaluation for right sided weakness and decreased responsiveness. Patient unable to provide history due to condition, per the son the patient experienced an acute onset of right arm and leg weakness, and became unresponsive while at a routine appoin tment for her at his echo technologist's office. EMS was notified and upon arrival the patient was found to have neurologic deficit resulting in a code stroke, found to have Acute CVA and was treated with TPA in ED. She was transferred to the ICU afterwards for monitoring. MRI brain showed acute left basal ganglia/left periventricular white matter infarct and a small acute infarct in the left cerebellum. Prior to transfer she developed abdominal pain and was evaluated and found to have gallstones. After she was medically cleared she was transferred for further rehab. Patient is participating in therapy and making reasonable progress. Taking rest breaks as needed. +BM. Denies pain, palpitations, dyspnea, cough, N/V, or joint pain. Admits to intermittent colicky RUQ pain but not currently. BP and tachycardia better since starting back on antihypertensive, IM increased dose, appreciate assistance. Plts still low - normal prior to transfer to rehab. Walking with therapy, on stairs. RUE shoulder abduction and finger abduction improved. Speech about the same. Discussed dischareg with patient and therapy, barring any setbacks, will plan to discharge home with therapy. Discussed need for patient to continue secondary stroke prevention, utilize AD for mobility and continue dysphagia diet until she is able to safely advance. Also discussed need to follow up with PCP for BP monitoring and medication adjustment. All records, vitals, labs and medications were reviewed. No other issues per patient, nursing or therapy. Objective - Exam Narrative Exam: MUSCULOSKELETAL SPECIALTY EXAM CONSTITUTIONAL: Well developed, well nourished, appropriately groomed obese. RIGHT hand dominant. RESPIRATORY: Bilateral wheeze to ascultation, no increased work of breathing, on 2L O2 at home 16/12 CARDIOVASCULAR: Regular Rhythm,tachycardic, no swelling, edema or tenderness in BUE or BLE. All extremities warm. GI: + bowel sounds, soft, NTTP, nondistended. INTEGUMENTARY: Normal, no lesion, rash, masses or bruising noted in extremities. MUSCULOSKELETAL: BUE and BLE normal without defect, crepitus, subluxation, effusion, arthritic changes or TTP. SA EF WE EE FF FA HF KE ADF EHL APF R 4/5 4/5 4/5 4/5 4/5 4/5 4/5 4/5 4/5 4/5 4/5 L 5/5 5/5 5/5 5/5 5/5 5 /5 5/5 5/5 5/5 5/5 5/5 ROM decreased on right but improving, normal on left Tone normal NEURO: CN II - XII grossly intact except: visual field decreased on right, right facial droop, decreased shoulder shrug and head rotation on right Sensation intact in all extremities without extinction. No tremor noted in 4 extremities. Naming and repetition impaired. Right inattention Follows 1 step commands. Dysphasia and Dysarthria present Dysphagia POSTURE and GAIT: Sitting posture good. Balance appears reasonable. Gait with RW fairly steady, some LOB and right inattention. PSYCH: Alert, oriented x3, affect appears flat. Insight appears intact. - Constitutional Vitals: Vital Signs - 12hr 08/06/18 08/06/18 08/06/18 04:33 04:45 07:36 Temperature 36.3 C L 36.7 C Pulse Rate 90 Pulse Rate [ 100 H Bilateral Throughout] Respiratory 20 16 Rate Respiratory 20 Rate [Bilateral Throughout] Blood Pressure 134/74 142/72 Blood Pressure [Right] O2 Sat by Pulse 97 Oximetry 08/06/18 08/06/18 08/06/18 07:38 09:23 09:37 Temperature 36.6 C Pulse Rate 95 H Pulse Rate [ 95 H 92 H Bilateral Throughout] Respiratory 16 Rate Respiratory 20 16 Rate [Bilateral Throughout] Blood Pressure Blood Pressure 142/72 [Right] O2 Sat by Pulse Oximetry 08/06/18 08/06/18 08/06/18 09:43 12:00 12:05 Temperature 36.4 C 36.4 C Pulse Rate 105 H Pulse Rate [ Bilateral Throughout] Respiratory 22 22 Rate Respiratory Rate [Bilateral Throughout] Blood Pressure 149/78 Blood Pressure 149/78 [Right] O2 Sat by Pulse 99 93 Oximetry 08/06/18 15:31 Temperature Pulse Rate Pulse Rate [ 98 H Bilateral Throughout] Respiratory Rate Respiratory 18 Rate [Bilateral Throughout] Blood Pressure Blood Pressure [Right] O2 Sat by Pulse Oximetry - Allied health notes Allied health notes reviewed: nursing, PT, ST, OT FIMS assessment as documented by PT/OT/ST: Grooming Patient cleans teeth/dentures: No Patient santos/brushes hair: Yes Patient washes, rinses and Yes dries face: Patient washes, rinses and Yes dries hands: Patient shaves: No Patient applies make-up: No Patient performs (no make-up/ 3/4 (75%) shaving): Grooming FIM Score 4. Minimal Assistance (Patient = 75% or more. Needs touching.) Toileting Toileting Device Bedside Commode,Commode over Toilet Patient able to: Adjust clothes before,Clean self,Adjust clothes after Patient able to perform: 2/3 (67%) Toileting FIM Score 4. Minimal Assistance (Patient = 75% or more. Needs touching.) Social interaction/Memory/Problem solving Social Interaction FIM Score 6. Mod. [place] (Mostly appropriate. May need meds. No supv.) Memory FIM Score 3. Moderate Assistance (Recognizes and remembers 50-74%.) Problem Solving FIM Score 3. Moderate Assistance (Solves routine problems 50-74%.) Transfers Mode of Locomotion: Wheelchair Bed/Chair/Wheelchair Transfers 5. Supervision (Needs supv. or set-up for FIM Score sliding board, foot rests.) Toilet Transfers FIM Score 3. Moderate Assistance (Patient = 50% or more. Some lifting.) Patient transferred to: Shower Shower Transfers FIM Score 4. Minimal Assistance (Patient = 75% or more. Needs touching.) Locomotion- Stairs Device used on Stairs Handrail/s Number of Stairs Ascended/ 12 Descended Patient used handrail/support: Yes Stairs FIM Score 4. Minimal Assistance (Patient = 75% or more, touching. 12-14 stairs.) Locomotion- walk/wheelchair Most Frequent Mode of Walking Locomotion: Ambulation Distance 170 Walking FIM Score 4. Minimal Assistance (Patient = 75% or more. Minimum of 150 ft.) Wheelchair Propulsion Distance 300 Wheelchair FIM Score 5. Supervision (Minimum 150 ft. supv./cues or 50 ft. independently.) Eating Eating FIM Score 5. Supervision/Set-Up (Needs help w/ containers, cutting meat, etc.) Dressing-Upper body Patient retrieves clothing No items: Patient applies/removes UE n/a prosthesis or orthosis: Upper Body Dressing FIM Score 4. Minimal Assistance (Patient = 75% or more. Needs touching.) Dressing-lower body Patient retrieves clothing No items: Patient applies/removes LE n/a prosthesis or orthosis: Lower Body Dressing FIM Score 4. Minimal Assistance (Patient = 75% or more. Needs touching.) - Labs CBC & Chem 7: 08/06/18 06:50 08/06/18 06:50 Labs: Laboratory Results - last 72 hr 08/04/18 08/04/18 08/05/18 07:46 07:46 07:43 WBC 4.9 RBC 4.45 Hgb 12.8 Hct 38.8 MCV 87 MCH 29 MCHC 33 RDW 14.6 Plt Count 112 L Lymph % (Auto) [place] % (Auto) Eos % (Auto) Baso % (Auto) Lymph # [place] # Eos # Baso # Seg Neutrophils % Seg Neutrophils # Sodium 141 140 Potassium 3.8 3.9 Chloride 101.3 100.4 Carbon Dioxide 31 H 29 Anion Gap 13 15 BUN 15 12 Creatinine 0.8 0.8 Estimated GFR > 60 > 60 BUN/Creatinine Ratio 19 15 Glucose 117 H 117 H Calcium 8.9 8.9 Magnesium 2.20 Prealbumin 0.137 L 08/06/18 08/06/18 06:50 06:50 WBC 3.9 L RBC 4.23 Hgb 12.4 Hct 37.0 MCV 87 MCH 29 MCHC 34 RDW 14.9 Plt Count 113 L Lymph % (Auto) 6.6 L [place] % (Auto) 9.3 H Eos % (Auto) 2.8 Baso % (Auto) 0.3 Lymph # 0.3 L [place] # 0.4 Eos # 0.1 Baso # 0.0 Seg Neutrophils % 81.0 H Seg Neutrophils # 3.2 Sodium 144 Potassium 4.0 Chloride 101.5 Carbon Dioxide 31 H Anion Gap 16 BUN 11 Creatinine 0.8 Estimated GFR > 60 BUN/Creatinine Ratio 14 Glucose 115 H Calcium 8.8 Magnesium Prealbumin Assessment and Plan 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 Will monitor for shoulder hand syndrome and post stroke depression. Former Tob use I69.321 Dysphasia: CLINICAL ASSISTANT to work to improve ability to communicate with strategies and repetition I69.391 Dysphagia: on modified diet, advance as able. EStim, FEES, MBS as needed I69.322 Dysarthria: CLINICAL ASSISTANT to work on improving motor control for speech improvement I69.312 Visuospatial deficit after CVA: monitor right side, cue towards right, scanning strategies I10 Hypertension: Cont atenolol, monitor BP and adjust as needed I50.9 Heart Failure: BNP normal, lasix restarted at low dose J44.9 COPD: On home O2, continue inhalers/nebs and adjust as needed, monitor for worsening. CXR in AM, was being treated with Abx prior to CVA and did not finish, wheezing now Z73.6 ADL dysfunction: OT will work on improving ability to perform ADLs (including assistive devices) to increase independence and decrease caregiver burden and improve functional transfers and mobility training. R26.2 Difficulty walking: PT will work on gait training and proper use of assistive devices and advance as appropriate to use of stairs and outside ambulation on uneven surfaces. R26.81 Unsteadiness on feet: PT will work on improving static and dynamic si tting and standing balance as well as proper use of assistive devices to decrease risk of falls. R26.89 Abnormality of gait: PT will work to improve safety and efficiency of gait through neuromotor training and gait training along with instruction on proper use of assistive devices. M62.81 Muscle weakness: PT & OT will work on strengthening exercises to improve functional strength including mixture of closed and open kinetic chain exercises. R53.81 Debility: PT & OT will work on improving overall functional status to improve participation with ADLs, mobility and social involvement. R53.83 Fatigue: PT & OT will work on improving endurance through aerobic exercises and therapeutic activity while monitoring patients tolerance for activity and vital signs as needed. DVT ppx:Lovenox Pain: Continue physical modalities in therapy and pain medications as needed to achieve functional pain control. Sleep: Monitor and address as needed. Bowel: Monitor and address as needed. Medications added for constipation Appetite: Monitor and address as needed. Discharge planning: Pending therapy progress and care plan meeting. Will continue discussion with therapy team, SW, patient and family. D/C Friday planned, patient is reaching a level of improvement with PT/OT that is appropriate to continue at a level of therapy. Will need prolonged CLINICAL ASSISTANT services for continued recovery. Safety issues have been discussed with patient. Restrictions/ Precautions: Falls, Aspiration, right visual deficit WB status: FWB Functional Hx: ADLs: Independent Cognition: Independent Mobility: No AD Consults IM for management of HTN, CHF, COPD, Electrolyte abnormalities and thrombocytopenia - appreciate their assistance. Barriers to Discharge: Decreased mobility and ability to perform self care, balance deficits, weakness, right visual field deficit Estimated Length of Stay: 14-21 days Discharge Destination: Home with family
--- NOTE | 2018-08-07 00:33 | Progress Note ---
Assessment and Plan Assessment and plan: Acute ischemic stroke, recent. Admitted to Rehab Dr. Marie, attending, managing Hypertension BP increasing. Will increase atenolol to 100mg po daily Hyperlipidemia On statin COPD stable Duoneb Chronic CHF Continiue Lasix, Atenolol Thrombocytopenia. Will monitor Full code status Thanks for consulting us. Will follow History Interval history: Feels better Still dysartria Hospitalist Physical - Physical exam Narrative exam: GEN: Not in acute distress, lying in bed HEENT: Normocephalic, atraumatic, Neck: supple, No JVD Lungs: Clear to auscultation bilat, no crackles, no wheeze Abd:soft, non tender, non distended, normal bowel sounds Ext: No edema, no clubbing, no cyanosis Neuro:Awake,alert,oriented X 3,right sided weakness, Dysarthria, - Constitutional Vitals: Temp Pulse Resp BP Pulse Ox 97.8 F 85 17 138/69 96 08/06/18 22:12 08/06/18 22:12 08/06/18 22:19 08/06/18 22:12 08/06/18 22:19 Results - Labs CBC & Chem 7: 08/06/18 06:50 08/06/18 06:50 Labs: Laboratory Last Values WBC 3.9 K/mm3 (4.5-11.0) L 08/06/18 06:50 RBC 4.23 M/mm3 (3.65-5.03) 08/06/18 06:50 Hgb 12.4 gm/dl (10.1-14.3) 08/06/18 06:50 Hct 37.0 % (30.3-42.9) 08/06/18 06:50 MCV 87 fl (79-97) 08/06/18 06:50 MCH 29 pg (28-32) 08/06/18 06:50 MCHC 34 % (30-34) 08/06/18 06:50 RDW 14.9 % (13.2-15.2) 08/06/18 06:50 Plt Count 113 K/mm3 (140-440) L 08/06/18 06:50 Lymph % (Auto) 6.6 % (13.4-35.0) L 08/06/18 06:50 [place] % (Auto) 9.3 % (0.0-7.3) H 08/06/18 06:50 Eos % (Auto) 2.8 % (0.0-4.3) 08/06/18 06:50 Baso % (Auto) 0.3 % (0.0-1.8) 08/06/18 06:50 Lymph # 0.3 K/mm3 (1.2-5.4) L 08/06/18 06:50 [place] # 0.4 K/mm3 (0.0-0.8) 08/06/18 06:50 Eos # 0.1 K/mm3 (0.0-0.4) 08/06/18 06:50 Baso # 0.0 K/mm3 (0.0-0.1) 08/06/18 06:50 Seg Neutrophils % 81.0 % (40.0-70.0) H 08/06/18 06:50 Seg Neutrophils # 3.2 K/mm3 (1.8-7.7) 08/06/18 06:50 Sodium 144 mmol/L (137-145) 08/06/18 06:50 Potassium 4.0 mmol/L (3.6-5.0) 08/06/18 06:50 Chloride 101.5 mmol/L (98-107) 08/06/18 06:50 Carbon Dioxide 31 mmol/L (22-30) H 08/06/18 06:50 Anion Gap 16 mmol/L 08/06/18 06:50 BUN 11 mg/dL (7-17) 08/06/18 06:50 Creatinine 0.8 mg/dL (0.7-1.2) 08/06/18 06:50 Estimated GFR > 60 ml/min 08/06/18 06:50 BUN/Creatinine Ratio 14 % 08/06/18 06:50 Glucose 115 mg/dL (65-100) H 08/06/18 06:50 Calcium 8.8 mg/dL (8.4-10.2) 08/06/18 06:50 Magnesium 2.20 mg/dL (1.7-2.3) 08/04/18 07:46 Total Bilirubin 1.10 mg/dL (0.1-1.2) 07/31/18 04:35 AST 19 units/L (5-40) 07/31/18 04:35 ALT 26 units/L (7-56) 07/31/18 04:35 Alkaline Phosphatase 96 units/L (35-129) 07/31/18 04:35 NT-Pro-B Natriuret Pep 70.34 pg/mL (0-900) 07/31/18 04:35 Total Protein 6.0 g/dL (6.3-8.2) L 07/31/18 04:35 Albumin 3.6 g/dL (3.9-5) L 07/31/18 04:35 Albumin/Globulin Ratio 1.5 % 07/31/18 04:35 Prealbumin 0.137 g/L (0.200-0.400) L 08/05/18 07:43 Nutrition/Malnutrition Assess - Dietary Evaluation Nutrition/Malnutrition Findings: Nutrition Notes Start: 08/05/18 15:30 Freq: Status: Active Protocol: Document 08/06/18 12:48 TW (Rec: 08/06/18 13:20 TW [email or web address]) Co-Sign 08/06/18 12:48 LP Nutrition Notes Initial or Follow up Reassessment Current Diagnosis COPD,Hypertension,Heart Failure,Stroke Other Pertinent Diagnosis DVT Current Diet pureed Labs/Tests Reviewed. Pertinent Medications Reviewed. Height 5 ft 2 in Weight 85.7 kg [place] Body Weight (kg) 50.00 BMI 34.5 Weight Status Overweight Subjective/Other Information Pt stated she is not eating any of her meals. RN stated she will discuss diet advancement with MD. Pt stated she is not drinking any of her supplement. Percent of energy/protein needs met: 0%/0% Burn Absent Trauma Absent #1 Nutrition Diagnosis Inadequate oral intake Etiology dislike of pureed food As Evidenced by Signs and Symptoms Meeting 0% of her calorie and protein needs Is patient on ventilator? No Is Patient Ambulatory and/or Out of Bed Yes REE-([place]-ambulatory/OOB) [ 1755.325 NUTR.MSJOOB] [facility] Additional Notes Protein needs: (1.0-1.2 g/kg) (86-103 g/day) Fluid needs: 1ml/kcal Nutrition Intervention Change Diet Order: Advance when medically feasible Goal #1 Diet advancement Goal #2 Meet at least 75% of calorie and protein needs by PO intake Follow-Up By: 08/11/18 Additional Comments f/u: intakes and diet advancement
[2018-08-07] MEDS: DUONEB *Not for PRN Use IH SCH ×5 (02:30→19:11)
[2018-08-07] MEDS: PROVENTIL IH PRN (06:10)
[2018-08-07] MEDS: TENORMIN PO SCH (07:56)
[2018-08-07] MEDS: ASPIRIN PO SCH (07:56)
[2018-08-07] MEDS: LASIX PO SCH (07:56)
[2018-08-07] MEDS: LOVENOX SUB-Q SCH (07:57)
[2018-08-07] MEDS ORDERED: ZOFRAN ODT PO PRN (12:05)
--- NOTE | 2018-08-07 15:18 | Event Note ---
Date: 08/07/18 Notified this AM that patient is having increased difficulty with ambulation and balance. Therapy is advising to continue until she stabilizes and I agree especially in light of her living with her and family living 30 mins away. Will continue rehab until she is more stable and attempt discharge at later date. Patient is not happy with the change but understands.
--- NOTE | 2018-08-07 18:01 | Progress Note ---
Assessment and Plan Assessment and plan: Acute ischemic stroke, recent. Admitted to Rehab Dr. Marie, attending, managing Hypertension BP increasing. Will increase atenolol to 100mg po daily Hyperlipidemia On statin COPD Had more shortness of breath on exertion earlier but now resolved after breathing treatment. cont Duoneb Q6 cont Albuterol q 4 prn Chronic CHF Continiue Lasix, Atenolol Thrombocytopenia. Will monitor Full code status Thanks for consulting us. Will follow History Interval history: Feels better Still dysarthria SOB earlier, now resolved after breathing treatment Hospitalist Physical - Physical exam Narrative exam: GEN: Not in acute distress, lying in bed HEENT: Normocephalic, atraumatic, Neck: supple, No JVD Lungs: Clear to auscultation bilat, no crackles, no wheeze Abd:soft, non tender, non distended, normal bowel sounds Ext: No edema, no clubbing, no cyanosis Neuro:Awake,alert,oriented X 3,right sided weakness, Dysarthria, - Constitutional Vitals: Temp Pulse Resp BP Pulse Ox 97.4 F L 90 20 120/70 100 08/07/18 17:49 08/07/18 17:49 08/07/18 17:49 08/07/18 17:49 08/07/18 17:49 Results - Labs CBC & Chem 7: 08/06/18 06:50 08/06/18 06:50 Labs: Laboratory Last Values WBC 3.9 K/mm3 (4.5-11.0) L 08/06/18 06:50 RBC 4.23 M/mm3 (3.65-5.03) 08/06/18 06:50 Hgb 12.4 gm/dl (10.1-14.3) 08/06/18 06:50 Hct 37.0 % (30.3-42.9) 08/06/18 06:50 MCV 87 fl (79-97) 08/06/18 06:50 MCH 29 pg (28-32) 08/06/18 06:50 MCHC 34 % (30-34) 08/06/18 06:50 RDW 14.9 % (13.2-15.2) 08/06/18 06:50 Plt Count 113 K/mm3 (140-440) L 08/06/18 06:50 Lymph % (Auto) 6.6 % (13.4-35.0) L 08/06/18 06:50 [place] % (Auto) 9.3 % (0.0-7.3) H 08/06/18 06:50 Eos % (Auto) 2.8 % (0.0-4.3) 08/06/18 06:50 Baso % (Auto) 0.3 % (0.0-1.8) 08/06/18 06:50 Lymph # 0.3 K/mm3 (1.2-5.4) L 08/06/18 06:50 [place] # 0.4 K/mm3 (0.0-0.8) 08/06/18 06:50 Eos # 0.1 K/mm3 (0.0-0.4) 08/06/18 06:50 Baso # 0.0 K/mm3 (0.0-0.1) 08/06/18 06:50 Seg Neutrophils % 81.0 % (40.0-70.0) H 08/06/18 06:50 Seg Neutrophils # 3.2 K/mm3 (1.8-7.7) 08/06/18 06:50 Sodium 144 mmol/L (137-145) 08/06/18 06:50 Potassium 4.0 mmol/L (3.6-5.0) 08/06/18 06:50 Chloride 101.5 mmol/L (98-107) 08/06/18 06:50 Carbon Dioxide 31 mmol/L (22-30) H 08/06/18 06:50 Anion Gap 16 mmol/L 08/06/18 06:50 BUN 11 mg/dL (7-17) 08/06/18 06:50 Creatinine 0.8 mg/dL (0.7-1.2) 08/06/18 06:50 Estimated GFR > 60 ml/min 08/06/18 06:50 BUN/Creatinine Ratio 14 % 08/06/18 06:50 Glucose 115 mg/dL (65-100) H 08/06/18 06:50 Calcium 8.8 mg/dL (8.4-10.2) 08/06/18 06:50 Magnesium 2.20 mg/dL (1.7-2.3) 08/04/18 07:46 Total Bilirubin 1.10 mg/dL (0.1-1.2) 07/31/18 04:35 AST 19 units/L (5-40) 07/31/18 04:35 ALT 26 units/L (7-56) 07/31/18 04:35 Alkaline Phosphatase 96 units/L (35-129) 07/31/18 04:35 NT-Pro-B Natriuret Pep 70.34 pg/mL (0-900) 07/31/18 04:35 Total Protein 6.0 g/dL (6.3-8.2) L 07/31/18 04:35 Albumin 3.6 g/dL (3.9-5) L 07/31/18 04:35 Albumin/Globulin Ratio 1.5 % 07/31/18 04:35 Prealbumin 0.137 g/L (0.200-0.400) L 08/05/18 07:43 Nutrition/Malnutrition Assess - Dietary Evaluation Nutrition/Malnutrition Findings: Nutrition Notes Start: 08/05/18 15:30 Freq: Status: Active Protocol: Document 08/06/18 12:48 TW (Rec: 08/06/18 13:20 TW [email or web address]) Co-Sign 08/06/18 12:48 LP Nutrition Notes Initial or Follow up Reassessment Current Diagnosis COPD,Hypertension,Heart Failure,Stroke Other Pertinent Diagnosis DVT Current Diet pureed Labs/Tests Reviewed. Pertinent Medications Reviewed. Height 5 ft 2 in Weight 85.7 kg [place] Body Weight (kg) 50.00 BMI 34.5 Weight Status Overweight Subjective/Other Information Pt stated she is not eating any of her meals. RN stated she will discuss diet advancement with MD. Pt stated she is not drinking any of her supplement. Percent of energy/protein needs met: 0%/0% Burn Absent Trauma Absent #1 Nutrition Diagnosis Inadequate oral intake Etiology dislike of pureed food As Evidenced by Signs and Symptoms Meeting 0% of her calorie and protein needs Is patient on ventilator? No Is Patient Ambulatory and/or Out of Bed Yes [facility]OO[facility] [ 1755.325 NUTR.MSJOOB] Calculation Used for Recommendations [facility] Additional Notes Protein needs: (1.0-1.2 g/kg) (86-103 g/day) Fluid needs: 1ml/kcal Nutrition Intervention Change Diet Order: Advance when medically feasible Goal #1 Diet advancement Goal #2 Meet at least 75% of calorie and protein needs by PO intake Follow-Up By: 08/11/18 Additional Comments f/u: intakes and diet advancement
[2018-08-07] MEDS: NORCO 5/325 PO PRN (22:08)
[2018-08-08] MEDS: DUONEB *Not for PRN Use IH SCH ×4 (01:21→19:46)
[2018-08-08] MEDS: ASPIRIN PO SCH (09:37)
[2018-08-08] MEDS: LOVENOX SUB-Q SCH (09:37)
[2018-08-08] MEDS: TENORMIN PO SCH (09:37)
[2018-08-08] MEDS: LASIX PO SCH (09:37)
--- NOTE | 2018-08-08 18:50 | Progress Note ---
Assessment and Plan Assessment and plan: Acute ischemic stroke, recent. Admitted to Rehab Dr. Marie, attending, managing Hypertension BP increasing. Will increase atenolol to 100mg po daily Hyperlipidemia On statin COPD exacerbation Start solu-medrol cont Duoneb Q6 cont Albuterol q 4 prn Chronic CHF Continiue Lasix, Atenolol Thrombocytopenia. Will monitor Full code status Thanks for consulting us. Will continue to follow History Interval history: Shortness of breath Still dysarthria Hospitalist Physical - Physical exam Narrative exam: GEN: Not in acute distress, lying in bed HEENT: Normocephalic, atraumatic, Neck: supple, No JVD Lungs: Bilateral rhonchi, no crackles, no wheeze Abd:soft, non tender, non distended, normal bowel sounds Ext: No edema, no clubbing, no cyanosis Neuro:Awake,alert,oriented X 3,right sided weakness, Dysarthria, - Constitutional Vitals: Temp Pulse Resp BP Pulse Ox 97.9 F 84 22 142/77 95 08/08/18 15:52 08/08/18 15:52 08/08/18 15:52 08/08/18 15:52 08/08/18 15:52 Results - Labs CBC & Chem 7: 08/06/18 06:50 08/06/18 06:50 Labs: Laboratory Last Values WBC 3.9 K/mm3 (4.5-11.0) L 08/06/18 06:50 RBC 4.23 M/mm3 (3.65-5.03) 08/06/18 06:50 Hgb 12.4 gm/dl (10.1-14.3) 08/06/18 06:50 Hct 37.0 % (30.3-42.9) 08/06/18 06:50 MCV 87 fl (79-97) 08/06/18 06:50 MCH 29 pg (28-32) 08/06/18 06:50 MCHC 34 % (30-34) 08/06/18 06:50 RDW 14.9 % (13.2-15.2) 08/06/18 06:50 Plt Count 113 K/mm3 (140-440) L 08/06/18 06:50 Lymph % (Auto) 6.6 % (13.4-35.0) L 08/06/18 06:50 [place] % (Auto) 9.3 % (0.0-7.3) H 08/06/18 06:50 Eos % (Auto) 2.8 % (0.0-4.3) 08/06/18 06:50 Baso % (Auto) 0.3 % (0.0-1.8) 08/06/18 06:50 Lymph # 0.3 K/mm3 (1.2-5.4) L 08/06/18 06:50 [place] # 0.4 K/mm3 (0.0-0.8) 08/06/18 06:50 Eos # 0.1 K/mm3 (0.0-0.4) 08/06/18 06:50 Baso # 0.0 K/mm3 (0.0-0.1) 08/06/18 06:50 Seg Neutrophils % 81.0 % (40.0-70.0) H 08/06/18 06:50 Seg Neutrophils # 3.2 K/mm3 (1.8-7.7) 08/06/18 06:50 Sodium 144 mmol/L (137-145) 08/06/18 06:50 Potassium 4.0 mmol/L (3.6-5.0) 08/06/18 06:50 Chloride 101.5 mmol/L (98-107) 08/06/18 06:50 Carbon Dioxide 31 mmol/L (22-30) H 08/06/18 06:50 Anion Gap 16 mmol/L 08/06/18 06:50 BUN 11 mg/dL (7-17) 08/06/18 06:50 Creatinine 0.8 mg/dL (0.7-1.2) 08/06/18 06:50 Estimated GFR > 60 ml/min 08/06/18 06:50 BUN/Creatinine Ratio 14 % 08/06/18 06:50 Glucose 115 mg/dL (65-100) H 08/06/18 06:50 Calcium 8.8 mg/dL (8.4-10.2) 08/06/18 06:50 Magnesium 2.20 mg/dL (1.7-2.3) 08/04/18 07:46 Total Bilirubin 1.10 mg/dL (0.1-1.2) 07/31/18 04:35 AST 19 units/L (5-40) 07/31/18 04:35 ALT 26 units/L (7-56) 07/31/18 04:35 Alkaline Phosphatase 96 units/L (35-129) 07/31/18 04:35 NT-Pro-B Natriuret Pep 70.34 pg/mL (0-900) 07/31/18 04:35 Total Protein 6.0 g/dL (6.3-8.2) L 07/31/18 04:35 Albumin 3.6 g/dL (3.9-5) L 07/31/18 04:35 Albumin/Globulin Ratio 1.5 % 07/31/18 04:35 Prealbumin 0.137 g/L (0.200-0.400) L 08/05/18 07:43 Nutrition/Malnutrition Assess - Dietary Evaluation Nutrition/Malnutrition Findings: Nutrition Notes Start: 08/05/18 15:30 Freq: Status: Active Protocol: Document 08/06/18 12:48 TW (Rec: 08/06/18 13:20 TW [email or web address]) Co-Sign 08/06/18 12:48 LP Nutrition Notes Initial or Follow up Reassessment Current Diagnosis COPD,Hypertension,Heart Failure,Stroke Other Pertinent Diagnosis DVT Current Diet pureed Labs/Tests Reviewed. Pertinent Medications Reviewed. Height 5 ft 2 in Weight 85.7 kg [place] Body Weight (kg) 50.00 BMI 34.5 Weight Status Overweight Subjective/Other Information Pt stated she is not eating any of her meals. RN stated she will discuss diet advancement with MD. Pt stated she is not drinking any of her supplement. Percent of energy/protein needs met: 0%/0% Burn Absent Trauma Absent #1 Nutrition Diagnosis Inadequate oral intake Etiology dislike of pureed food As Evidenced by Signs and Symptoms Meeting 0% of her calorie and protein needs Is patient on ventilator? No Is Patient Ambulatory and/or Out of Bed Yes [facility] [ 1755.325 NUTR.MSJOOB] Calculation Used [facility] Additional Notes Protein needs: (1.0-1.2 g/kg) (86-103 g/day) Fluid needs: 1ml/kcal Nutrition Intervention Change Diet Order: Advance when medically feasible Goal #1 Diet advancement Goal #2 Meet at least 75% of calorie and protein needs by PO intake Follow-Up By: 08/11/18 Additional Comments f/u: intakes and diet advancement
[2018-08-08] MEDS: SOLU-Medrol IV SCH (23:40)
[2018-08-09] MEDS: PROVENTIL IH PRN ×2 (02:06→13:00)
[2018-08-09] MEDS: SOLU-Medrol IV SCH ×3 (06:35→20:48)
[2018-08-09] MEDS: DUONEB *Not for PRN Use IH SCH ×3 (07:58→20:25)
[2018-08-09] MEDS: ASPIRIN PO SCH (08:05)
[2018-08-09] MEDS: LASIX PO SCH (08:05)
[2018-08-09] MEDS: LOVENOX SUB-Q SCH (08:05)
[2018-08-09] MEDS: TENORMIN PO SCH (08:05)
[2018-08-09] MEDS: NORCO 5/325 PO PRN ×2 (13:33→20:47)
[2018-08-09] MEDS: ZESTRIL PO SCH (13:35)
--- NOTE | 2018-08-09 15:47 | Progress Note ---
Assessment and Plan Assessment and plan: Acute ischemic stroke, recent. Admitted to Rehab Dr. Marie, attending, managing Hypertension BP increasing. Will increase atenolol to 100mg po daily Hyperlipidemia On statin Acute respiratory failure due to COPD exacerbation Supplemental Oxygen COPD exacerbation Continue solu-medrol cont Duoneb Q6 cont Albuterol q 4 prn Chronic CHF Continiue Lasix, Atenolol Thrombocytopenia. Will monitor Full code status Thanks for consulting us. Will continue to follow History Interval history: Less shortness of breath Still dysarthria Hospitalist Physical - Physical exam Narrative exam: GEN: Not in acute distress, lying in bed HEENT: Normocephalic, atraumatic, Neck: supple, No JVD Lungs: Bilateral rhonchi, no crackles, no wheeze Abd:soft, non tender, non distended, normal bowel sounds Ext: No edema, no clubbing, no cyanosis Neuro:Awake,alert,oriented X 3,right sided weakness, Dysarthria, - Constitutional Vitals: Temp Pulse Resp BP Pulse Ox 98.8 F 88 16 152/70 97 08/09/18 11:00 08/09/18 13:20 08/09/18 13:20 08/09/18 13:35 08/09/18 11:00 Results - Labs CBC & Chem 7: 08/06/18 06:50 08/06/18 06:50 Labs: Laboratory Last Values WBC 3.9 K/mm3 (4.5-11.0) L 08/06/18 06:50 RBC 4.23 M/mm3 (3.65-5.03) 08/06/18 06:50 Hgb 12.4 gm/dl (10.1-14.3) 08/06/18 06:50 Hct 37.0 % (30.3-42.9) 08/06/18 06:50 MCV 87 fl (79-97) 08/06/18 06:50 MCH 29 pg (28-32) 08/06/18 06:50 MCHC 34 % (30-34) 08/06/18 06:50 RDW 14.9 % (13.2-15.2) 08/06/18 06:50 Plt Count 113 K/mm3 (140-440) L 08/06/18 06:50 Lymph % (Auto) 6.6 % (13.4-35.0) L 08/06/18 06:50 [place] % (Auto) 9.3 % (0.0-7.3) H 08/06/18 06:50 Eos % (Auto) 2.8 % (0.0-4.3) 08/06/18 06:50 Baso % (Auto) 0.3 % (0.0-1.8) 08/06/18 06:50 Lymph # 0.3 K/mm3 (1.2-5.4) L 08/06/18 06:50 [place] # 0.4 K/mm3 (0.0-0.8) 08/06/18 06:50 Eos # 0.1 K/mm3 (0.0-0.4) 08/06/18 06:50 Baso # 0.0 K/mm3 (0.0-0.1) 08/06/18 06:50 Seg Neutrophils % 81.0 % (40.0-70.0) H 08/06/18 06:50 Seg Neutrophils # 3.2 K/mm3 (1.8-7.7) 08/06/18 06:50 Sodium 144 mmol/L (137-145) 08/06/18 06:50 Potassium 4.0 mmol/L (3.6-5.0) 08/06/18 06:50 Chloride 101.5 mmol/L (98-107) 08/06/18 06:50 Carbon Dioxide 31 mmol/L (22-30) H 08/06/18 06:50 Anion Gap 16 mmol/L 08/06/18 06:50 BUN 11 mg/dL (7-17) 08/06/18 06:50 Creatinine 0.8 mg/dL (0.7-1.2) 08/06/18 06:50 Estimated GFR > 60 ml/min 08/06/18 06:50 BUN/Creatinine Ratio 14 % 08/06/18 06:50 Glucose 115 mg/dL (65-100) H 08/06/18 06:50 Calcium 8.8 mg/dL (8.4-10.2) 08/06/18 06:50 Magnesium 2.20 mg/dL (1.7-2.3) 08/04/18 07:46 Total Bilirubin 1.10 mg/dL (0.1-1.2) 07/31/18 04:35 AST 19 units/L (5-40) 07/31/18 04:35 ALT 26 units/L (7-56) 07/31/18 04:35 Alkaline Phosphatase 96 units/L (35-129) 07/31/18 04:35 NT-Pro-B Natriuret Pep 70.34 pg/mL (0-900) 07/31/18 04:35 Total Protein 6.0 g/dL (6.3-8.2) L 07/31/18 04:35 Albumin 3.6 g/dL (3.9-5) L 07/31/18 04:35 Albumin/Globulin Ratio 1.5 % 07/31/18 04:35 Prealbumin 0.137 g/L (0.200-0.400) L 08/05/18 07:43 Nutrition/Malnutrition Assess - Dietary Evaluation Nutrition/Malnutrition Findings: Nutrition Notes Start: 08/05/18 15 :30 Freq: Status: Active Protocol: Document 08/06/18 12:48 TW (Rec: 08/06/18 13:20 TW [email or web address]) Co-Sign 08/06/18 12:48 LP Nutrition Notes Initial or Follow up Reassessment Current Diagnosis COPD,Hypertension,Heart Failure,Stroke Other Pertinent Diagnosis DVT Current Diet pureed Labs/Tests Reviewed. Pertinent Medications Reviewed. Height 5 ft 2 in Weight 85.7 kg [place] Body Weight (kg) 50.00 BMI 34.5 Weight Status Overweight Subjective/Other Information Pt stated she is not eating any of her meals. RN stated she will discuss diet advancement with MD. Pt stated she is not drinking any of her supplement. Percent of energy/protein needs met: 0%/0% Burn Absent Trauma Absent #1 Nutrition Diagnosis Inadequate oral intake Etiology dislike of pureed food As Evidenced by Signs and Symptoms Meeting 0% of her calorie and protein needs Is patient on ventilator? No Is Patient Ambulatory and/or Out of Bed Yes REE-([facility]-ambulatory/OOB) [ 1755.325 NUTR.MSJOOB] Calculation Used for Recommendations [facility] Additional Notes Protein needs: (1.0-1.2 g/kg) (86-103 g/day) Fluid needs: 1ml/kcal Nutrition Intervention Change Diet Order: Advance when medically feasible Goal #1 Diet advancement Goal #2 Meet at least 75% of calorie and protein needs by PO intake Follow-Up By: 08/11/18 Additional Comments f/u: intakes and diet advancement
[2018-08-10] MEDS: NORCO 5/325 PO PRN (04:02)
[2018-08-10] MEDS: SOLU-Medrol IV SCH ×3 (04:17→22:47)
[2018-08-10] MEDS: PROVENTIL IH PRN (04:20)
[2018-08-10] MEDS: LASIX PO SCH (07:54)
[2018-08-10] MEDS: ZESTRIL PO SCH (07:55)
[2018-08-10] MEDS: ASPIRIN PO SCH (07:55)
[2018-08-10] MEDS: LOVENOX SUB-Q SCH (07:56)
[2018-08-10] MEDS: DUONEB *Not for PRN Use IH SCH ×3 (08:25→20:44)
[2018-08-10] MEDS: TENORMIN PO SCH (13:03)
--- NOTE | 2018-08-10 18:16 | Progress Note ---
Assessment and Plan Assessment and plan: Patient 68-year-old with recent acute ischemic stroke. She has been admitted to the rehabilitation unit for rehabilitation. Hospitalist service consulted for medical management. she has hypertension, hyperlipidemia, COPD chronic CHF. She complained of shortness of breath few days ago diagnosed with COPD exacerbation, and was started on Solu-Medrol, oxygen. She feels better today, will decrease dose of Solu-Medrol down to 40 mg every 12h. Acute ischemic stroke, recent. Admitted to Rehab Dr. Marie, attending, managing Hypertension Continue atenolol Hyperlipidemia On statin Acute respiratory failure due to COPD exacerbation Supplemental Oxygen COPD exacerbation Decrease solu-medrol to 40mgh q 12hl cont Duoneb Q6 cont Albuterol q 4 prn Chronic CHF Continiue Lasix, Atenolol Thrombocytopenia. Will monitor Full code status Thanks for consulting us. Will continue to follow History Interval history: Patient in rehab, post stroke, now with COPD exacerbation Less shortness of breath Still dysarthria Hospitalist Physical - Physical exam Narrative exam: GEN: Not in acute distress, lying in bed,Oxygen by NE on HEENT: Normocephalic, atraumatic, Neck: supple, No JVD heart:S1 and s2 reg, no murmurs, rubs or gallop Lungs: Few bilateral rhonchi, no crackles, Abd:soft, non tender, non distended, normal bowel sounds Ext: No edema, no clubbing, no cyanosis Neuro:Awake,alert,oriented X 3,right sided weakness, Dysarthria, - Constitutional Vitals: Temp Pulse Resp BP Pulse Ox 97.5 F L 96 H 16 122/62 95 08/10/18 07:49 08/10/18 15:53 08/10/18 15:53 08/10/18 13:03 08/10/18 08:27 Results - Labs CBC & Chem 7: 08/06/18 06:50 08/06/18 06:50 Labs: Laboratory Last Values WBC 3.9 K/mm3 (4.5-11.0) L 08/06/18 06:50 RBC 4.23 M/mm3 (3.65-5.03) 08/06/18 06:50 Hgb 12.4 gm/dl (10.1-14.3) 08/06/18 06:50 Hct 37.0 % (30.3-42.9) 08/06/18 06:50 MCV 87 fl (79-97) 08/06/18 06:50 MCH 29 pg (28-32) 08/06/18 06:50 MCHC 34 % (30-34) 08/06/18 06:50 RDW 14.9 % (13.2-15.2) 08/06/18 06:50 Plt Count 113 K/mm3 (140-440) L 08/06/18 06:50 Lymph % (Auto) 6.6 % (13.4-35.0) L 08/06/18 06:50 [place] % (Auto) 9.3 % (0.0-7.3) H 08/06/18 06:50 Eos % (Auto) 2.8 % (0.0-4.3) 08/06/18 06:50 Baso % (Auto) 0.3 % (0.0-1.8) 08/06/18 06:50 Lymph # 0.3 K/mm3 (1.2-5.4) L 08/06/18 06:50 [place] # 0.4 K/mm3 (0.0-0.8) 08/06/18 06:50 Eos # 0.1 K/mm3 (0.0-0.4) 08/06/18 06:50 Baso # 0.0 K/mm3 (0.0-0.1) 08/06/18 06:50 Seg Neutrophils % 81.0 % (40.0-70.0) H 08/06/18 06:50 Seg Neutrophils # 3.2 K/mm3 (1.8-7.7) 08/06/18 06:50 Sodium 144 mmol/L (137-145) 08/06/18 06:50 Potassium 4.0 mmol/L (3.6-5.0) 08/06/18 06:50 Chloride 101.5 mmol/L (98-107) 08/06/18 06:50 Carbon Dioxide 31 mmol/L (22-30) H 08/06/18 06:50 Anion Gap 16 mmol/L 08/06/18 06:50 BUN 11 mg/dL (7-17) 08/06/18 06:50 Creatinine 0.8 mg/dL (0.7-1.2) 08/06/18 06:50 Estimated GFR > 60 ml/min 08/06/18 06:50 BUN/Creatinine Ratio 14 % 08/06/18 06:50 Glucose 115 mg/dL (65-100) H 08/06/18 06:50 Calcium 8.8 mg/dL (8.4-10.2) 08/06/18 06:50 Magnesium 2.20 mg/dL (1.7-2.3) 08/04/18 07:46 Total Bilirubin 1.10 mg/dL (0.1-1.2) 07/31/18 04:35 AST 19 units/L (5-40) 07/31/18 04:35 ALT 26 units/L (7-56) 07/31/18 04:35 Alkaline Phosphatase 96 units/L (35-129) 07/31/18 04:35 NT-Pro-B Natriuret Pep 70.34 pg/mL (0-900) 07/31/18 04:35 Total Protein 6.0 g/dL (6.3-8.2) L 07/31/18 04:35 Albumin 3.6 g/dL (3.9-5) L 07/31/18 04:35 Albumin/Globulin Ratio 1.5 % 07/31/18 04:35 Prealbumin 0.137 g/L (0.200-0.400) L 08/05/18 07:43 Active Medications - Current Medications Current Medications: Generic Name Dose Route Start Last Admin Trade Name Freq PRN Reason Stop Dose Admin Acetaminophen 650 mg 07/30/18 16:26 Tylenol PO Q4H PRN Pain MILD(1-3)/Fever >100.5/FRITZ Acetaminophen/Hydrocodone Bitart 1 each 07/30/18 16:46 08/10/18 04:02 [place] 5/325 PO 1 each Q4H PRN Administration Pain, Moderate (4-6) Albuterol 2.5 mg 07/30/18 16:46 08/10/18 04:20 Proventil IH 2.5 mg Q4HRT PRN Administration Shortness Of Breath Albuterol/Ipratropium 1 ampul 08/08/18 14:00 08/10/18 15:49 Duoneb *Not For Prn Use* IH 1 ampul TIDRT KYUNG Administration Aspirin 325 mg 07/31/18 08:00 08/10/18 07:55 Aspirin PO 325 mg QDAY KYUNG Administration Atenolol 100 mg 08/07/18 08:00 08/10/18 13:03 Tenormin PO 100 mg QDAY KYUNG Administration Atorvastatin Calcium 40 mg 07/30/18 21:00 08/09/18 21:13 Lipitor PO 40 mg QHS KYUNG Administration Bisacodyl 10 mg 07/30/18 18:20 Dulcolax [place] QDAY PRN Constipation unrelieved by MOM Enoxaparin Sodium 40 mg 07/31/18 08:00 08/10/18 07:56 Lovenox SUB-Q 40 mg QDAY KYUNG Administration Furosemide 20 mg 08/01/18 05:00 08/10/18 07:54 Lasix PO 20 mg QDAY KYUNG Administration Lisinopril 40 mg 08/09/18 13:00 08/10/18 07:55 Zestril PO 40 mg QDAY KYUNG Administration Magnesium Hydroxide 30 ml 07/30/18 16:26 08/05/18 08:21 Milk Of Magnesia PO 30 ml Q4H PRN Administration Constipation Ondansetron HCl 4 mg 08/07/18 12:05 08/07/18 13:08 Zofran Odt PO 4 mg Q6H PRN Administration Nausea And Vomiting Nutrition/Malnutrition Assess - Dietary Evaluation Nutrition/Malnutrition Findings: Nutrition Notes Start: 08/05/18 15:30 Freq: Status: Active Protocol: Document 08/06/18 12:48 TW (Rec: 08/06/18 13:20 TW [email or web address]) Co-Sign 08/06/18 12:48 LP Nutrition Notes Initial or Follow up Reassessment Current Diagnosis COPD,Hypertension,Heart Failure,Stroke Other Pertinent Diagnosis DVT Current Diet pureed Labs/Tests Reviewed. Pertinent Medications Reviewed. Height 5 ft 2 in Weight 85.7 kg [place] Body Weight (kg) 50.00 BMI 34.5 Weight Status Overweight Subjective/Other Information Pt stated she is not eating any of her meals. RN stated she will discuss diet advancement with MD. Pt stated she is not drinking any of her supplement. Percent of energy/protein needs met: 0%/0% Burn Absent Trauma Absent #1 Nutrition Diagnosis Inadequate oral intake Etiology dislike of pureed food As Evidenced by Signs and Symptoms Meeting 0% of her calorie and protein needs Is patient on ventilator? No Is Patient Ambulatory and/or Out of Bed Yes REE-([facility]-ambulatory/OOB) [ 1755.325 NUTR.MSJOOB] Calculation Used for Recommendations [facility] Additional Notes Protein needs: (1.0-1.2 g/kg) (86-103 g/day) Fluid needs: 1ml/kcal Nutrition Intervention Change Diet Order: Advance when medically feasible Goal #1 Diet advancement Goal #2 Meet at least 75% of calorie and protein needs by PO intake Follow-Up By: 08/11/18 Additional Comments f/u: intakes and diet advancement
[2018-08-11] MEDS: PROVENTIL IH PRN (02:19)
[2018-08-11] MEDS: NORCO 5/325 PO PRN (02:44)
[2018-08-11 06:45] LABS: Hematocrit 41.4 % (30.3-42.9); Hemoglobin 13.9 gm/dl (10.1-14.3); Mean Corpuscular HGB Conc 34 % (30-34); Mean Corpuscular Volume 87 fl (79-97); Platelet Count 221 K/mm3 (140-440); Red Blood Count 4.77 M/mm3 (3.65-5.03); Red Cell Distribution Width 15.3 % (13.2-15.2)
[2018-08-11 07:17] LABS: BUN/Creatinine Ratio 27; Blood Urea Nitrogen 24 mg/dL (7-17); Calcium 9.2 mg/dL (8.4-10.2); Hemolysis Index 4
[2018-08-11] MEDS: LASIX PO SCH (08:21)
[2018-08-11] MEDS: ASPIRIN PO SCH (08:21)
[2018-08-11] MEDS: SOLU-Medrol IV SCH ×2 (08:21→21:44)
[2018-08-11] MEDS: TENORMIN PO SCH (08:21)
[2018-08-11] MEDS: ZESTRIL PO SCH (08:22)
[2018-08-11] MEDS: LOVENOX SUB-Q SCH (08:22)
[2018-08-11] MEDS: DUONEB *Not for PRN Use IH SCH ×3 (08:50→20:34)
--- NOTE | 2018-08-11 15:29 | Progress Note ---
Assessment and Plan Acute ischemic stroke, recent. Admitted to Rehab Dr. Marie, attending, managing Hypertension Continue atenolol Hyperlipidemia On statin Acute respiratory failure due to COPD exacerbation Supplemental Oxygen COPD exacerbation Decrease solu-medrol to 40mgh q 12hl cont Duoneb Q6 cont Albuterol q 4 prn Chronic CHF Continiue Lasix, Atenolol Thrombocytopenia. Will monitor Full code status Subjective Date of service: 08/11/18 Principal diagnosis: Left CVA Interval history: Improving Objective - Constitutional Vitals: Vital Signs - 12hr 08/11/18 08/11/18 08/11/18 07:52 08:00 08:55 Temperature 98.0 F Pulse Rate 78 Pulse Rate [ 84 Bilateral Throughout] Pulse Rate [ 88 Throughout] Respiratory 21 Rate Respiratory 24 Rate [Bilateral Throughout] Respiratory 20 Rate [ Throughout] Blood Pressure 115/55 Blood Pressure [Right] O2 Sat by Pulse 98 94 94 Oximetry 08/11/18 14:00 Temperature 98.2 F Pulse Rate 86 Pulse Rate [ Bilateral Throughout] Pulse Rate [ Throughout] Respiratory 21 Rate Respiratory Rate [Bilateral Throughout] Respiratory Rate [ Throughout] Blood Pressure Blood Pressure 120/60 [Right] O2 Sat by Pulse 97 Oximetry General appearance: Present: no acute distress, well-nourished - EENT Eyes: PERRL, EOM intact ENT: hearing intact, clear oral mucosa Ears: bilateral: normal - Neck Neck: supple, normal ROM - Respiratory Respiratory effort: normal Respiratory: bilateral: CTA - Breasts Breasts: normal - Cardiovascular Rhythm: regular Heart Sounds: Present: S1 & S2. Absent: gallop, rub Extremities: pulses intact, No edema, normal color, Full ROM - Gastrointestinal General gastrointestinal: Present: soft, non-tender, non-distended, normal bowel sounds - Genitourinary Female genitourinary: normal - Integumentary Integumentary: clear, warm, dry - Musculoskeletal Musculoskeletal: right sided weakness - Neurologic Neurologic: focal deficits - Psychiatric Psychiatric: memory intact, appropriate mood/affect, intact judgment & insight - Allied health notes Allied health notes reviewed: nursing, case management - Labs CBC & Chem 7: 08/11/18 05:52 08/11/18 05:52 Labs: Abnormal lab results 08/11/18 08/11/18 Range/Units 05:52 05:52 WBC 12.1 H (4.5-11.0) K/mm3 RDW 15.3 H (13.2-15.2) % Chloride 96.5 L (98-107) mmol/L BUN 24 H (7-17) mg/dL Glucose 167 H (65-100) mg/dL
[2018-08-12] MEDS: NORCO 5/325 PO PRN ×2 (00:12→18:43)
[2018-08-12] MEDS: PROVENTIL IH PRN (03:53)
[2018-08-12] MEDS: DUONEB *Not for PRN Use IH SCH ×3 (07:45→20:08)
[2018-08-12] MEDS: TENORMIN PO SCH (08:12)
[2018-08-12] MEDS: ASPIRIN PO SCH (08:12)
[2018-08-12] MEDS: SOLU-Medrol IV SCH ×2 (08:13→21:20)
[2018-08-12] MEDS: LASIX PO SCH (08:13)
[2018-08-12] MEDS: LOVENOX SUB-Q SCH (08:13)
[2018-08-12] MEDS: ZESTRIL PO SCH (08:13)
--- NOTE | 2018-08-12 12:57 | Progress Note ---
Subjective Date of service: 08/12/18 Principal diagnosis: Left CVA Interval history: no c/o's noted today, excited about going home tomorrow.... Objective - Constitutional Vitals: Vital Signs - 12hr 08/12/18 08/12/18 08/12/18 03:55 04:21 07:29 Temperature 97.5 F L Pulse Rate 69 Pulse Rate [ 69 72 Throughout] Respiratory 21 Rate Respiratory 18 18 Rate [ Throughout] Blood Pressure 139/69 O2 Sat by Pulse 96 Oximetry General appearance: 2 (Y), 13 (Y) - EENT Eyes: PERRL, EOM intact ENT: 2 (Y), 1 (Y) - Neck Neck: supple, normal ROM - Respiratory Respiratory effort: Respiratory: bilateral: CTA - Breasts Breasts: - Cardiovascular Rhythm: regular Heart Sounds: Present: S1 & S2. Absent: gallop, rub Extremities: pulses intact, No edema, normal color, Full ROM - Gastrointestinal General gastrointestinal: soft, non-tender, non-distended, normal bowel sounds - Genitourinary Female genitourinary: - Integumentary Integumentary: Present: clear, warm, dry - Musculoskeletal Musculoskeletal: Present: 1, strength equal bilaterally - Neurologic Neurologic: moves all extremities - Psychiatric Psychiatric: memory intact, appropriate mood/affect, intact judgment & insight - Allied health notes FIMS assessment as documented by PT/OT/ST: Grooming Patient cleans teeth/dentures: Yes Patient santos/brushes hair: Yes Patient washes, rinses and Yes dries face: Patient washes, rinses and Yes dries hands: Patient shaves: No Patient applies make-up: No Patient performs (no make-up/ 3/4 (75%) shaving): Grooming FIM Score 5. Supervision ([place] applies toothpaste or opens containers.) Toileting Toileting Device Bedside Commode,Commode over Toilet Patient able to: Adjust clothes before,Clean self,Adjust clothes after Patient able to perform: 3/3 (100%) Toileting FIM Score 6. Modified [place] (Needs equip. or prosth ./orth.) Social interaction/Memory/Problem solving Social Interaction FIM Score 5. Supervision (Needs supv. <10%. Needs encouragement to participate.) Memory FIM Score 5. Supervision (Needs cueing <10%, stressful/ unfamiliar situations.) Problem Solving FIM Score 5. Supervision (Needs cueing <10% to solve routine problems.) Transfers Mode of Locomotion: Walking Bed/Chair/Wheelchair Transfers 4. Minimal Assistance (Patient = 75% or more. FIM Score Needs touching.) Toilet Transfers FIM Score 4. Minimal Assistance (Patient = 75% or more. Needs touching.) Patient transferred to: Shower Shower Transfers FIM Score 4. Minimal Assistance (Patient = 75% or more. Needs touching.) Locomotion- Stairs Device used on Stairs Handrail/s Number of Stairs Ascended/ 12 Descended Patient used handrail/support: Yes Stairs FIM Score 5. Supervision (12-14 stairs w/ supv. 4-6 stairs independently.) Locomotion- walk/wheelchair Most Frequent Mode of Walking Locomotion: Ambulation Distance 357 Walking FIM Score 5. Supervision (Minimum 150 ft. supv./cues or 50 ft. independently.) Wheelchair Propulsion Distance 600 Wheelchair FIM Score 6. Modified [place] (Wheels a minimum of 150 ft.) Eating Eating FIM Score 6. Modified [place] (Special consistency or uses device.) Dressing-Upper body Patient retrieves clothing No items: Patient applies/removes UE n/a prosthesis or orthosis: Upper Body Dressing FIM Score 4. Minimal Assistance (Patient = 75% or more. Needs touching.) Dressing-lower body Lower Body Dressing Device Credit Director/Stick Patient retrieves clothing No items: Patient applies/removes LE n/a prosthesis or orthosis: Lower Body Dressing FIM Score 5. Supv./Set-Up ([place] sets out clothes or applies pros./orth.) - Labs CBC & Chem 7: 08/11/18 05:52 08/11/18 05:52 Labs: Laboratory Results - last 72 hr 08/11/18 08/11/18 05:52 05:52 WBC 12.1 H RBC 4.77 Hgb 13.9 Hct 41.4 MCV 87 MCH 29 MCHC 34 RDW 15.3 H Plt Count 221 Sodium 140 Potassium 4.6 Chloride 96.5 L Carbon Dioxide 30 Anion Gap 18 BUN 24 H Creatinine 0.9 Estimated GFR > 60 BUN/Creatinine Ratio 27 Glucose 167 H Calcium 9.2 Assessment and Plan s/p CVA doing well continue rehab and observation hopefully discharge to home in am
[2018-08-13] MEDS: NORCO 5/325 PO PRN (02:31)
[2018-08-13] MEDS: PROVENTIL IH PRN (02:36)
[2018-08-13] MEDS: DUONEB *Not for PRN Use IH SCH ×2 (08:27→14:39)
[2018-08-13 09:01] VITALS: BP 151/83
[2018-08-13] MEDS: LOVENOX SUB-Q SCH (09:50)
[2018-08-13] MEDS: ASPIRIN PO SCH (09:50)
[2018-08-13] MEDS: ZESTRIL PO SCH (09:50)
[2018-08-13] MEDS: TENORMIN PO SCH (09:50)
[2018-08-13] MEDS: LASIX PO SCH (09:51)
[2018-08-13] MEDS: SOLU-Medrol IV SCH (09:58)
--- NOTE | 2018-08-13 14:25 | Progress Note ---
Assessment and Plan Acute ischemic stroke, recent. Improving Hypertension Continue atenolol Hyperlipidemia On statin Acute respiratory failure due to COPD exacerbation Supplemental Oxygen COPD exacerbation Decrease solu-medrol to 40mgh q 12hl cont Duoneb Q6 cont Albuterol q 4 prn Chronic CHF Continiue Lasix, Atenolol Thrombocytopenia. Improved---Normal platelet level Full code status Subjective Date of service: 08/13/18 Principal diagnosis: Left CVA Interval history: Improving Objective - Constitutional Vitals: Vital Signs - 12hr 08/13/18 08/13/18 08/13/18 04:26 07:56 07:57 Temperature 97.3 F L 98.4 F Pulse Rate 85 83 83 Pulse Rate [ Throughout] Respiratory 20 20 Rate Respiratory Rate [ Throughout] Blood Pressure 166/79 151/83 O2 Sat by Pulse 95 94 94 Oximetry 08/13/18 08/13/18 08/13/18 08:27 08:37 08:53 Temperature Pulse Rate Pulse Rate [ 93 H 98 H Throughout] Respiratory Rate Respiratory 20 20 Rate [ Throughout] Blood Pressure O2 Sat by Pulse 94 Oximetry General appearance: Present: no acute distress, well-nourished - EENT Eyes: PERRL, EOM intact ENT: hearing intact, clear oral mucosa Ears: bilateral: normal - Neck Neck: supple, normal ROM - Respiratory Respiratory effort: normal Respiratory: bilateral: CTA - Breasts Breasts: normal - Cardiovascular Heart rate: 78 Rhythm: regular Heart Sounds: Present: S1 & S2. Absent: gallop, rub Extremities: no ischemia, pulses intact, No edema, normal color, Full ROM - Gastrointestinal General gastrointestinal: Present: soft, non-tender, non-distended, normal bowel sounds - Genitourinary Female genitourinary: normal - Integumentary Integumentary: clear, warm, dry - Musculoskeletal Musculoskeletal: right sided weakness - Neurologic Neurologic: moves all extremities - Psychiatric Psychiatric: memory intact, appropriate mood/affect, intact judgment & insight - Labs CBC & Chem 7: 08/11/18 05:52 08/11/18 05:52
--- NOTE | 2018-08-31 12:06 | Discharge Summary ---
Providers - Providers Date of Admission: 07/30/18 18:09 Date of discharge: 08/13/18 Attending physician: PAUL RIVERA III, MD 07/30/18 16:20 Occupational Therapy Evaluate and Treat [CONS] Routine Comment: Reason For Exam: ADL dysfunction Physical Therapy Evaluation and Treat [CONS] Routine Comment: Reason For Exam: Mobility Dysfunction 07/30/18 16:26 Speech Therapy Evaluation and Treat [CONS] Routine Reason For Exam: Dysphagia/cognition 07/30/18 16:31 Consult to Case Management [CONS] Routine Services Needed at Discharge: Home Health Services Notified:: cm notified 08/05/18 08:00 Consult to Physician [CONS] Routine Comment: Ok to see Friday Consulting Provider: TIM CONTE Physician Instructions: Reason For Exam: Mgmnt HTN,CHF,COPD,Electrolytes,thrombocytopenia [facility] Reason for admission: CVA Condition: Fair Hospital course: 68 YO Female with Obesity, HTN, COPD, CHF presented to ED for evaluation for right sided weakness and decreased responsiveness. 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 EMS was notified and upon arrival the patient was found to have neurologic deficit resulting in a code stroke, found to have Acute CVA and was treated with TPA in ED. She was transferred to the ICU afterwards for monitoring. MRI brain showed acute left basal ganglia/left periventricular white matter infarct and a small acute infarct in the left cerebellum. Prior to transfer she developed abdominal pain and was evaluated and found to have gallstones. After she was medically cleared she was transferred for further rehab. She made progress with PT/OT but had issues with dysphagia and dysarthria. Will need to follow up with HH for further therapy, especially PAN CLEANER. Patient was discharged home by another physician while I was out of town. Disposition: [id number] HOME UNDER HOME [facility] Time spent for discharge: <30min Core Measure Documentation - Palliative Care Palliative Care/ Comfort Measures: Not Applicable - Core Measures Any of the following diagnoses?: stroke - Stroke Discharge Requirements Statin for LDL = or >70 mg/dl on DC: Yes Anticoag for atrial fib/atrial flutter: Not Applicable Antithrombotic for ischemic stroke: Yes Exam - Physical Exam Narrative exam: MUSCULOSKELETAL SPECIALTY EXAM Patient examined and discharged by another physician My last exam of her was as follows: CONSTITUTIONAL: Well developed, well nourished, appropriately groomed obese. RIGHT hand dominant. RESPIRATORY: Bilateral wheeze to ascultation, no increased work of breathing, on 2L O2 at home 16/12 CARDIOVASCULAR: Regular Rhythm,tachycardic, no swelling, edema or tenderness in BUE or BLE. All extremities warm. GI: + bowel sounds, soft, NTTP, nondistended. INTEGUMENTARY: Normal, no lesion, rash, masses or bruising noted in extremities. MUSCULOSKELETAL: BUE and BLE normal without defect, crepitus, subluxation, effusion, arthritic changes or TTP. SA EF WE EE FF FA HF KE ADF EHL APF R 4/5 4/5 4/5 4/5 4/5 4/5 4/5 4/5 4/5 4/5 4/5 L 5/5 5/5 5/5 5/5 5/5 5 /5 5/5 5/5 5/5 5/5 5/5 ROM decreased on right but improving, normal on left Tone normal NEURO: CN II - XII grossly intact except: visual field decreased on right, right facial droop, decreased shoulder shrug and head rotation on right Sensation intact in all extremities without extinction. No tremor noted in 4 extremities. Naming and repetition impaired. Right inattention Follows 1 step commands. Dysphasia and Dysarthria present Dysphagia POSTURE and GAIT: Sitting posture good. Balance appears reasonable. Gait with RW fairly steady, some LOB and right inattention. PSYCH: Alert, oriented x3, affect appears flat. Insight appears intact. - Constitutional Vitals: Temp Pulse Resp BP Pulse Ox 36.9 C 76 18 151/83 94 08/13/18 07:56 08/13/18 14:50 08/13/18 14:50 08/13/18 07:56 08/13/18 08:53 Plan Activity: advance as tolerated, no driving until cleared by PCP, up only with assistance, fall precautions Diet: other (Pureed/Thin Liq) Special Instructions: physical therapy, occupational therapy, other (PAN CLEANER) Durable Medical Equipment Needed Upon Discharge: Walker-Rolling Follow up with: KRAIG RHODES MD [Primary Care Provider] - 7 Days Prescriptions: AtorvaSTATin [Lipitor] 40 mg PO QHS #30 tablet Aspirin [Aspirin TAB] 325 mg PO QDAY #30 tablet Ipratropium/Albuterol Sulfate [DUONEB *Not for PRN Use*] 1 ampul IH Q6HRT #50 ampul.neb Potassium Chloride [K-Dur] 10 meq PO DAILY #30 tablet Furosemide [Lasix TAB] 20 mg PO QDAY #30 tablet Omeprazole 40 mg PO DAILY #30 capsule. Clopidogrel Bisulfate [Plavix] 75 mg PO QDAY #30 tablet ALBUTEROL NEB's [Proventil 0.083% NEBS] 2.5 mg IH Q4HRT PRN #1 nebu PRN Reason: Shortness Of Breath Atenolol [Tenormin] 100 mg PO QDAY #30 tablet Lisinopril [Zestril TAB] 40 mg PO QDAY #30 tablet
== END 2018-08-13 18:40 | disposition home or self-care (01) | DRG 56 ==
LOC: 3A 15:28 → UNDOADMIN 15:28 → 3B 18:09
PROVIDERS: ADMIT Physical Medicine & Rehabilitation; ATTEND Physical Medicine & Rehabilitation
DX: I69.351 Hemiplegia and hemiparesis following cerebral infarction affecting right dominant side (principal); I63.9 Cerebral infarction, unspecified; J96.00 Acute respiratory failure, unspecified whether with hypoxia or hypercapnia; J44.1 Chronic obstructive pulmonary disease with (acute) exacerbation; E66.9 Obesity, unspecified; I50.9 Heart failure, unspecified; R26.81 Unsteadiness on feet; I11.0 Hypertensive heart disease with heart failure; E78.5 Hyperlipidemia, unspecified; D69.6 Thrombocytopenia, unspecified; R13.10 Dysphagia, unspecified; R47.1 Dysarthria and anarthria; Z68.34 Body mass index [BMI] 34.0-34.9, adult; Z82.49 Family history of ischemic heart disease and other diseases of the circulatory system; Z80.9 Family history of malignant neoplasm, unspecified; Z79.899 Other long term (current) drug therapy
CPT/HCPCS: 36415; 71046; 80048; 80053; 83735; 83880; 84134; 85025; 85027; 94640; 94760; G0378; G0515; A9270-GY; J1650; J2930; J7030; Q0162